=== PATIENT | female | born 1980 | race Caucasian/White ===

== ENCOUNTER 2016-04-05 13:05 | Emergency (ER) | payer MEDICARE, OTHER ==
[2016-04-05] MEDS ORDERED: IPRATROPIUM-ALBUTEROL 3 ML NEB INHALATION STA (13:54)
--- NOTE | 2016-04-05 14:00 | ED ---
SOB HPI - General Chief Complaint: Shortness of Breath Stated Complaint: TISHA Time Seen by Provider: 04/05/16 13:50 Source: patient, family, RN notes reviewed Mode of arrival: wheelchair Limitations: no limitations - History of Present Illness Initial Comments: 36-year-old female presents emergency Department chief complaint of cough congestion shortness breath. Patient states she's been sick since . Patient states she called her practicing md anesthesiologist Dr. Tucker was unable to get her into an appointment until next week so he called in a In[employer] Dosepak, Z-Thanh. Patient states that her nebulizer office is broken so she is only been using her rescue inhaler. Patient states she does have a history of asthma and has been hospital several times. Patient has fever, chills. Patient states she had increased congestion and shortness breath. She states her cough is productive at times. Patient denies any chest pain, nausea vomiting. Patient denies any sick contacts. - Related Data Home Medications Medication Instructions Recorded Confirmed Albuterol Nebulized [Ventolin 2.5 mg INHALATION RT-Q6H PRN 08/06/13 04/05/16 Nebulized] Albuterol Sulfate [Ventolin HFA] 2 puff INHALATION RT-Q4H PRN 08/06/13 04/05/16 Budesonide/Formoterol Fumarate 2 puff INHALATION RT-BID 08/06/13 04/05/16 [Symbicort 160-4.5 Mcg Inhaler] Citalopram Hydrobromide [CeleXA] 40 mg PO DAILY 08/06/13 04/05/16 INSULIN LISPRO (humaLOG) [humaLOG] 100 units SQ AC-TID 08/06/13 04/05/16 Lisinopril-Hctz 20-12.5 mg 1 tab PO DAILY 08/06/13 04/05/16 [Zestoretic 20-12.5] Omalizumab [Xolair] 300 mg SQ Q28D 08/06/13 04/05/16 metFORMIN HCL 1,000 mg PO BID 08/06/13 04/05/16 LORazepam [Ativan] 0.5 mg PO BID 12/10/13 04/05/16 traZODone HCL [Desyrel] 100 mg PO HS 12/10/13 04/05/16 Atorvastatin [Lipitor] 40 mg PO HS 03/09/16 04/05/16 Verapamil HCl [Verapamil ER] 240 mg PO DAILY 03/09/16 04/05/16 risperiDONE [RisperDAL] 1 mg PO HS 04/05/16 04/05/16 risperiDONE [RisperDAL] 2 mg PO AC-BID 04/05/16 04/05/16 Allergies Allergy/AdvReac Type Severity Reaction Status Date / Time Penicillins Allergy Rash/Hives Verified 04/05/16 13:58 Review of Systems ROS Statement: Those systems with pertinent positive or pertinent negative responses have been documented in the HPI. ROS Other: All systems not noted in ROS Statement are negative. Past Medical History Past Medical History: Asthma, Diabetes Mellitus, Hyperlipidemia, Hypertension Additional Past Medical History / Comment(s): dX SLEEP APNEA-June 2015-CPAP History of Any Multi-Drug Resistant Organisms: None Reported Past Surgical History: Appendectomy, Section Additional Past Surgical History / Comment(s): bronchioplasty, moles removed Past Anesthesia/Blood Transfusion Reactions: No Reported Reaction Past Psychological History: Anxiety, Depression Smoking Status: Never smoker Past Alcohol Use History: None Reported Past Drug Use History: Unable to Obtain General Exam Limitations: no limitations General appearance: alert, in no apparent distress Head exam: Present: atraumatic, normocephalic, normal inspection Eye exam: Present: normal appearance, PERRL, EOMI. Absent: scleral icterus, conjunctival injection, periorbital swelling ENT exam: Present: normal exam, normal oropharynx, mucous membranes moist, TM's normal bilaterally, normal external ear exam Neck exam: Present: normal inspection, full ROM. Absent: tenderness, meningismus, lymphadenopathy Respiratory exam: Present: wheezes (bilateral). Absent: normal lung sounds bilaterally, respiratory distress, rales, rhonchi, stridor Cardiovascular Exam: Present: normal rhythm, tachycardia, normal heart sounds. Absent: systolic murmur, diastolic murmur, rubs, gallop, clicks Course Vital Signs 04/05/16 04/05/16 04/05/16 13:09 14:00 14:02 Temperature 97.8 F Pulse Rate 117 H 112 H Respiratory 28 H 20 Rate Blood Pressure 142/79 O2 Sat by Pulse 95 Oximetry 04/05/16 14:15 Temperature Pulse Rate 116 H Respiratory Rate Blood Pressure O2 Sat by Pulse Oximetry - Reevaluation(s) Reevaluation #1: 04/05/16 14:46 Patient was reevaluated after DuoNeb treatments. Patient states she feels much improved she states that she has no shortness of breath. She was updated on chest x-ray results which showed no acute abnormality. Medical Decision Making - Medical Decision Making 36-year-old female presented for cough congestion shortness of breath. Patient' s chest x-ray shows no acute abnormality. Patient has upper respiratory infection though she has a history of asthma. Patient is doing better after DuoNeb treatment. Patient will be sent home with mouthpiece for her nebulizer at home and instructed to use her nebulizer rather than her inhaler at home. She has a follow-up appointment with her practicing md anesthesiologist. Return parameters were discussed. Patient recently. Disposition Clinical Impression: URI (upper respiratory infection), Mild asthma exacerbation Disposition: HOME SELF-CARE Condition: Stable Instructions: Asthma (ED) Additional Instructions: Please return to the Emergency Department if symptoms worsen or any other concerns. Time of Disposition: 14:47
--- NOTE | 2016-04-05 14:36 | XR ---
EXAMINATION TYPE: XR chest 2V DATE OF EXAM: 04/05/2016 2:32 PM COMPARISON: 10/08/2014 HISTORY: Cough TECHNIQUE: Frontal and lateral views of the chest are obtained. FINDINGS: There is no focal air space opacity, pleural effusion, or pneumothorax seen. The cardiac silhouette size is within normal limits. The osseous structures are intact. IMPRESSION: No acute cardiopulmonary process.
[2016-04-05 15:03] VITALS: BP 151/66; PULSE 126; RESP 18; TEMP 98.6
== END 2016-04-05 15:19 | disposition home or self-care (01) ==
LOC: EC 13:05
DX: J06.9 Acute upper respiratory infection, unspecified (principal); E11.9 Type 2 diabetes mellitus without complications; E78.5 Hyperlipidemia, unspecified; J45.901 Unspecified asthma with (acute) exacerbation; I10 Essential (primary) hypertension; F41.9 Anxiety disorder, unspecified; F32.9 Major depressive disorder, single episode, unspecified; Z79.899 Other long term (current) drug therapy; Z79.51 Long term (current) use of inhaled steroids; Z79.4 Long term (current) use of insulin; Z79.84 Long term (current) use of oral hypoglycemic drugs; Z88.0 Allergy status to penicillin
CPT/HCPCS: 71020; 94640; 99285

== ENCOUNTER → 2017-01-13 | Outpatient (CLI) | payer MEDICARE ==
--- NOTE | 2017-01-13 17:05 | PN ---
PROGRESS NOTE DATE OF SERVICE: 01/13/2017 36-year-old lady has been followed in [facility] for treatment of obstructive sleep apnea-hypopnea syndrome. Patient continued successfully to use her machine every night for the whole night. Feels better. Sleep is better and feels well during the day. [place] Sleepiness Scale is only 1. MEDICATIONS ARE: Citalopram, lisinopril, hydrochlorothiazide, metformin, risperidone, Lipitor, , Symbicort, Ventolin, NovoLog, albuterol, lorazepam, ammonium lactate lotion. PHYSICAL EXAM: Patient in no distress. VITAL SIGNS: BP 134/68, HR 78, RR 16, height 5 feet 4 inches, weight 232, BMI 39.8. Patient lost about 21 pounds since previous visit, temperature 98.7, oxygen saturation room air 94%. Oropharynx low position of soft palate. Neck Supple, no JVD. Thyroid is not palpable. LUNGS Clear to percussion and to auscultation. Good air exchange. No wheezing or rhonchi. HEART S1, S2 regular. No murmurs, gallops, or rubs. ABDOMEN: Slightly obese. Soft and nontender. Bowel sounds are present. No organomegaly appreciated. EXTREMITIES No clubbing or cyanosis. 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 Cranial nerves 2 to 7 intact. There is no fasciculation or atrophy. noted. No focal deficits observed. IMPRESSION: 1. Obstructive sleep apnea-hypopnea syndrome. The patient demonstrated good compliance with treatment benefitting from treatment. CPAP pressure is 11 cm of water. 2. Mild obesity, patient lost about 20 pounds of weight since previous visit. 3. Diabetes mellitus. 4. Anxiety. 5. Asthma. 6. Hypertension. PLAN: 1. Continue treatment with CPAP every night for the whole night. 2. Continue losing weight. 3. Sleep hygiene with regular time in bed for at least 8 hours. 4. No driving if feeling sleepiness. 5. Prescription for all necessary CPAP supplies including a full-face mask, tube, filters. Thank you very much for allowing me to participate in management of your patient. Sincerely, Jose Guadalupe Bucio MD, PhD, FAASM Diplomat of [place] [employer] [place] [employer]house Technician [facility] MMODL / IJN: [id number] /
== END ==
LOC: SLEEP 15:27
PROVIDERS: ATTEND Internal Medicine
DX: G47.33 Obstructive sleep apnea (adult) (pediatric) (principal); E66.9 Obesity, unspecified; E11.9 Type 2 diabetes mellitus without complications; F41.9 Anxiety disorder, unspecified; I10 Essential (primary) hypertension; J45.909 Unspecified asthma, uncomplicated

== ENCOUNTER → 2017-02-01 | Outpatient (CLI) | payer MEDICARE ==
--- NOTE | 2017-02-01 09:55 | WWHP ---
[facility] - HISTORY AND PHYSICAL CHIEF COMPLAINT: The patient is here for her routine gynecologic exam. HPI: This is a 36-year-old, G1, P1, with an LMP of 01/19/17, who is here for her routine exam and is without gynecologic complaints. She has decided to not attempt and has been using condoms and spermicide for control. She is declining any other method of control at this time. PAST MEDICAL HISTORY: OCD, anxiety, type 2 diabetes requiring insulin, depression, elevated cholesterol, asthma, and chronic hypertension. MEDICATIONS: 1. Citalopram 40 mg daily. 2. Lisinopril with hydrochlorothiazide 20/12.5 mg daily. 3. Metformin 1000 mg b.i.d. 4. Risperidone 2 mg 2-1/2 tablets daily. 5. Lipitor 40 mg daily. 6. Calan SR 240 mg daily. 7. Symbicort 160/4.5 b.i.d. 8. Xolair injections 300 mg every 4 weeks. 9. Ventolin HFA p.r.n. 10.NovoLog 15 units b.i.d. with meals. 11.Albuterol inhaler every 6 hours p.r.n. 12.Lorazepam 0.5 mg b.i.d. 13.Ammonium LAC 12% lotion b.i.d. ALLERGIES: Penicillin which caused a rash. PAST SURGICAL HISTORY: section 2002, appendectomy, multiple bronchoscopies in the past. 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 SOCIAL HISTORY: She denies tobacco, alcohol, or drug use. 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 FAMILY HISTORY: Grandmother had breast cancer, bone cancer, and skin cancer. REVIEW OF SYSTEMS: She has lost about 8 pounds over the last year with diet changes. She denies respiratory, cardiac or GI problems. PHYSICAL EXAM: Blood pressure 119/70, height 5 feet 5 inches, weight 232 pounds, BMI 39, temperature 98.5, pulse 84. This is a well-developed, heavyset white female, who is alert and oriented x3, in no acute distress. HEENT: Within normal limits. NECK: Supple without mass or thyromegaly. CHEST AND LUNGS: Clear to auscultation. HEART: Regular rate and rhythm. BREASTS: Without mass or discharge. Axillary exam is negative for adenopathy. BACK: Negative for CVA tenderness. ABDOMEN: Obese, soft, nontender, without palpable masses. PELVIC: Normal external genitalia. Cervix and vagina appear normal. There is no evidence of prolapse. The uterus is mid position, nongravid size and nontender. There are no palpable adnexal masses or tenderness. Bimanual examination is somewhat limited secondary to her size. RECTAL: Exam is negative for mass or tenderness. EXTREMITIES: Nontender. IMPRESSION: 1. A 36-year-old female with normal gynecologic exam, using condoms and spermicide for control. 2. Multiple medical problems. 3. Obesity. PLAN: 1. Pap smear was deferred since she had a normal one last year. 2. Self breast examination was discussed. 3. We have discussed control options. She is declining any other options at this time and will continue to use condoms with spermicide. We have also discussed the options of permanent sterilization including vasectomy and tubal sterilization. 4. She will return in 1 year. MMODL / IJN: [id number] /
== END ==
LOC: WWCWWP 07:33
PROVIDERS: ATTEND Obstetrics & Gynecology
DX: Z01.419 Encounter for gynecological examination (general) (routine) without abnormal findings (principal)

== ENCOUNTER → 2018-03-07 | Outpatient (CLI) | payer MEDICARE, OTHER ==
[2018-03-07 16:09] VITALS: BP 136/78; PULSE 120; TEMP 98.3; BMI 42.9
--- NOTE | 2018-03-07 16:50 | P.HPOB ---
History of Present Illness H&P Date: 03/07/18 Chief Complaint: The patient is here for routine gynecologic exam. This is a 38-year-old with an LMP of 02/16/2018. The patient is without gynecologic complaints. She has used condoms and spermicide for control. She would now like to proceed with permanent sterilization and is requesting a referral for a tubal sterilization procedure. Review of Systems The patient has gained 26 pounds over the last year. She denies respiratory, cardiac, or G.I. problems. Past Medical History Past Medical History: Asthma, Diabetes Mellitus (Type II diabetes requiring insulin), Hyperlipidemia, Hypertension Additional Past Medical History / Comment(s): dX SLEEP APNEA-June 2015-CPAP. 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 History of Any Multi-Drug Resistant Organisms: None Reported Past Surgical History: Appendectomy, Section (2002) Additional Past Surgical History / Comment(s): bronchioplasty, moles removed. Past Anesthesia/Blood Transfusion Reactions: No Reported Reaction Past Psychological History: Anxiety, Depression Additional Psychological History / Comment(s): OCD. 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 - Past Family History Mother Family Medical History: No Reported History, Cancer (Grandmother had breasts, bone and skin cancer.) Medications and Allergies Home Medications Medication Instructions Recorded Confirmed Type Albuterol Nebulized [Ventolin 2.5 mg INHALATION RT-Q6H PRN 08/06/13 03/07/18 History Nebulized] Albuterol Sulfate [Ventolin HFA] 2 puff INHALATION RT-Q4H PRN 08/06/13 03/07/18 History Budesonide/Formoterol Fumarate 2 puff INHALATION RT-BID 08/06/13 03/07/18 History [Symbicort 160-4.5 Mcg Inhaler] Citalopram Hydrobromide [CeleXA] 40 mg PO DAILY 08/06/13 03/07/18 History Lisinopril-Hctz 20-12.5 mg 1 tab PO DAILY 08/06/13 03/07/18 History [Zestoretic 20-12.5] Omalizumab [Xolair] 300 mg SQ Q28D 08/06/13 03/07/18 History metFORMIN HCL 1,000 mg PO BID 08/06/13 03/07/18 History LORazepam [Ativan] 0.5 mg PO BID 12/10/13 03/07/18 History Atorvastatin [Lipitor] 40 mg PO HS 03/09/16 03/07/18 History Verapamil HCl [Verapamil ER] 240 mg PO DAILY 03/09/16 03/07/18 History risperiDONE [RisperDAL] 1 mg PO HS 04/05/16 03/07/18 History risperiDONE [RisperDAL] 2 mg PO AC-BID 04/05/16 03/07/18 History Insulin Aspart [NovoLOG] 5 units INJ DAILY 06/24/16 03/07/18 History Allergies Allergy/AdvReac Type Severity Reaction Status Date / Time Penicillins Allergy Rash/Hives Verified 03/07/18 16:09 Exam Vital Signs Temp Pulse BP 03/07/18 16:01 98.3 F 120 H 136/78 Intake and Output 03/07/18 03/07/18 03/07/18 06:59 14:59 22:59 Other: Weight 117.027 kg Height 5'5", weight 258 pounds, BMI 42.9. This is a well-developed well-nourished obese white female who is alert and oriented times 3 in no acute distress. HEENT: Within normal limits. NECK: Supple without mass or thyromegaly. CHEST AND LUNGS: Clear to auscultation. HEART: Regular rate and rhythm. BREASTS: Are without mass or discharge. There is central nipple inversion bilaterally that the patient states she has had for many years. AXILLARY EXAM: Negative for adenopathy. BACK: Negative for CVA tenderness. ABDOMEN: Soft, obese, nontender, without palpable masses. PELVIC EXAM: Normal external genitalia. Cervix and vagina appear normal. There is no unusual discharge. There is no evidence of prolapse. The uterus is midposition, nongravid size and nontender. There are no palpable adnexal masses or tenderness. Bimanual examination is somewhat limited secondary to her size. RECTAL EXAM: negative for mass or tenderness and is negative for occult blood. EXTREMITIES: Nontender. IMPRESSION: 1. 38-year-old obese female with normal gynecologic exam who is requesting permanent tubal sterilization. 2. Multiple medical problems. PLAN: 1. Pap smear was performed. 2. Self breast awareness was discussed with the patient. 3. We had a long discussion regarding various methods for control including tubal sterilization, vasectomy for her as well as the IUD. The patient would like to proceed with tubal sterilization. The ACOG FAQ handouts on male and female sterilization as well as sterilization by laparoscopy were given to the patient. 4. The patient will be referred for tubal sterilization. 5. She will return in one year.
== END ==
LOC: WWCWWP 15:51
PROVIDERS: ATTEND Obstetrics & Gynecology
DX: Z53.9 Procedure and treatment not carried out, unspecified reason (principal)

== ENCOUNTER 2018-04-27 17:16 | Inpatient (IN) | payer MEDICARE ==
[2018-04-27] MEDS ORDERED: SODIUM CHLORIDE 0.9% 1,000 ML IV STA (17:45)
[2018-04-27] MEDS ORDERED: IPRATROPIUM-ALBUTEROL 3 ML NEB INHALATION STA ×2 (17:45→20:48)
[2018-04-27] MEDS ORDERED: methylPREDNISolone SOD SUCCI 125 MG/2 ML VIAL IV STA (17:45)
--- NOTE | 2018-04-27 17:55 | ED ---
SOB HPI - General Chief Complaint: Shortness of Breath Stated Complaint: asthma Time Seen by Provider: 04/27/18 17:40 Source: patient, RN notes reviewed Mode of arrival: ambulatory Limitations: no limitations - History of Present Illness Initial Comments: This is a 38-year-old female history of asthma states she's been having shortness ofs day or so with exertional dyspnea chills wheezing hot and cold flashes. She had 1 episode nausea vomiting. She states she has a lot of rhinorrhea. She states she's not getting better with home medications. She denies smoking. She has no chest pain or other symptoms report. MD Complaint: shortness of breath - Related Data Home Medications Medication Instructions Recorded Confirmed Albuterol Nebulized [Ventolin 2.5 mg INHALATION RT-QID PRN 08/06/13 04/27/18 Nebulized] Albuterol Sulfate [Ventolin HFA] 2 puff INHALATION RT-Q4H PRN 08/06/13 04/27/18 Budesonide/Formoterol Fumarate 2 puff INHALATION RT-BID 08/06/13 04/27/18 [Symbicort 160-4.5 Mcg Inhaler] Citalopram Hydrobromide [CeleXA] 40 mg PO DAILY 08/06/13 04/27/18 Lisinopril-Hctz 20-12.5 mg 1 tab PO DAILY 08/06/13 04/27/18 [Zestoretic 20-12.5] Omalizumab [Xolair] 300 mg SQ Q28D 08/06/13 04/27/18 metFORMIN HCL 1,000 mg PO BID 08/06/13 04/27/18 LORazepam [Ativan] 0.5 mg PO BID 12/10/13 04/27/18 Atorvastatin [Lipitor] 40 mg PO HS 03/09/16 04/27/18 Verapamil HCl [Verapamil ER] 240 mg PO DAILY 03/09/16 04/27/18 risperiDONE [RisperDAL] 2 mg PO AC-BID 04/05/16 04/27/18 Insulin Aspart [NovoLOG] 30 units SQ AC-TID 06/24/16 04/27/18 Ammonium Lactate Lotion 1 applic TOPICAL BID 04/27/18 04/27/18 [Lac-Hydrin 12% Lotion] Insulin Glargine,Hum.rec.anlog 40 unit SQ HS 04/27/18 04/27/18 [Lantus Solostar] Allergies Allergy/AdvReac Type Severity Reaction Status Date / Time Penicillins Allergy Rash/Hives Verified 04/27/18 17:30 Review of Systems ROS Statement: Those systems with pertinent positive or pertinent negative responses have been documented in the HPI. ROS Other: All systems not noted in ROS Statement are negative. Past Medical History Past Medical History: Asthma Additional Past Medical History / Comment(s): dX SLEEP APNEA-June 2015-CPAP History of Any Multi-Drug Resistant Organisms: None Reported Past Surgical History: Appendectomy, Section (2002) Additional Past Surgical History / Comment(s): bronchioplasty, moles removed Past Anesthesia/Blood Transfusion Reactions: No Reported Reaction Past Psychological History: Anxiety, Depression Smoking Status: Never smoker Past Alcohol Use History: Occasional Past Drug Use History: None Reported - Past Family History Mother Family Medical History: No Reported History, Cancer (Grandmother had breasts, bone and skin cancer.) General Exam - General Exam Comments Initial Comments: Is a well developed obese female who is awake alert oriented 3 Limitations: no limitations General appearance: alert, anxious, in distress Head exam: Present: atraumatic, normocephalic, normal inspection Eye exam: Present: normal appearance, PERRL, EOMI. Absent: scleral icterus, conjunctival injection, periorbital swelling ENT exam: Present: mucous membranes moist, other (Nasal mucosa with clear drainage) Neck exam: Present: normal inspection. Absent: tenderness, meningismus, lymphadenopathy Respiratory exam: Present: accessory muscle use, decreased breath sounds. Absent: respiratory distress, wheezes, rales, rhonchi, stridor Cardiovascular Exam: Present: normal rhythm, tachycardia, normal heart sounds. Absent: systolic murmur, diastolic murmur, rubs, gallop, clicks GI/Abdominal exam: Present: soft, normal bowel sounds. Absent: distended, tenderness, guarding, rebound, rigid Extremities exam: Present: normal inspection, full ROM, normal capillary refill. Absent: tenderness, pedal edema, joint swelling, calf tenderness Back exam: Present: normal inspection Neurological exam: Present: alert, oriented X3, CN II-XII intact Psychiatric exam: Present: normal affect, normal mood Skin exam: Present: warm, dry, intact, normal color. Absent: rash Course Vital Signs 04/27/18 04/27/18 04/27/18 17:19 18:05 18:14 Temperature 99.7 F H Pulse Rate 130 H 125 H 128 H Respiratory 24 20 Rate Blood Pressure 170/67 O2 Sat by Pulse 94 L Oximetry 04/27/18 20:27 Temperature 101.5 F H Pulse Rate 125 H Respiratory 20 Rate Blood Pressure O2 Sat by Pulse 91 L Oximetry - Reevaluation(s) Reevaluation #1: 04/27/18 20:49 I did evaluate the patient again after the initial treatment she did not get much improvement he remained tachycardic. Reevaluation #2: 04/27/18 20:49 Repeat evaluation patient did desaturate on room air with minimal exertion. Medical Decision Making - Medical Decision Making I did discuss the findings the patient and her family. As well as Dr. Law. Patient be admitted for inpatient treatment and also consultation by Dr. Tucker - Lab Data Result diagrams: 04/27/18 17:50 04/27/18 17:50 Lab Results 04/27/18 04/27/18 04/27/18 Range/Units 17:50 17:50 17:50 WBC 6.4 (3.8-10.6) k/uL RBC 4.36 (3.80-5.40) m/uL Hgb 12.1 (11.4-16.0) gm/dL Hct 36.1 (34.0-46.0) % MCV 82.9 (80.0-100.0) fL MCH 27.8 (25.0-35.0) pg MCHC 33.6 (31.0-37.0) g/dL RDW 14.4 (11.5-15.5) % Plt Count 292 (150-450) k/uL Neutrophils % 79 % Lymphocytes % 11 % Monocytes % 6 % Eosinophils % 1 % Basophils % 1 % Neutrophils # 5.1 (1.3-7.7) k/uL Lymphocytes # 0.7 L (1.0-4.8) k/uL Monocytes # 0.4 (0-1.0) k/uL Eosinophils # 0.1 (0-0.7) k/uL Basophils # 0.0 (0-0.2) k/uL PT (9.0-12.0) sec INR (<1.2) APTT (22.0-30.0) sec Sodium 136 L (137-145) mmol/L Potassium 4.3 (3.5-5.1) mmol/L Chloride 101 (98-107) mmol/L Carbon Dioxide 22 (22-30) mmol/L Anion Gap 13 mmol/L BUN 13 (7-17) mg/dL Creatinine 0.53 (0.52-1.04) mg/dL Est GFR (CKD-EPI)AfAm >90 (>60 ml/min/1.73 sqM) Est GFR (CKD-EPI)NonAf >90 (>60 ml/min/1.73 sqM) Glucose 168 H (74-99) mg/dL Calcium 9.7 (8.4-10.2) mg/dL Magnesium 1.4 L (1.6-2.3) mg/dL Total Bilirubin 0.3 (0.2-1.3) mg/dL AST 19 (14-36) U/L ALT 31 (9-52) U/L Alkaline Phosphatase 57 (38-126) U/L Total Creatine Kinase 64 (30-135) U/L CK-MB (CK-2) 0.6 (0.0-2.4) ng/mL CK-MB (CK-2) Rel Index 0.9 Troponin I <0.012 (0.000-0.034) ng/mL NT-Pro-B Natriuret Pep pg/mL Total Protein 7.5 (6.3-8.2) g/dL Albumin 4.4 (3.5-5.0) g/dL Influenza Type A RNA (Not Detectd) Influenza Type B (PCR) (Not Detectd) 04/27/18 04/27/18 04/27/18 Range/Units 17:50 17:50 18:00 WBC (3.8-10.6) k/uL RBC (3.80-5.40) m/uL Hgb (11.4-16.0) gm/dL Hct (34.0-46.0) % MCV (80.0-100.0) fL MCH (25.0-35.0) pg MCHC (31.0-37.0) g/dL RDW (11.5-15.5) % Plt Count (150-450) k/uL Neutrophils % % Lymphocytes % % Monocytes % % Eosinophils % % Basophils % % Neutrophils # (1.3-7.7) k/uL Lymphocytes # (1.0-4.8) k/uL Monocytes # (0-1.0) k/uL Eosinophils # (0-0.7) k/uL Basophils # (0-0.2) k/uL PT 9.8 (9.0-12.0) sec INR 0.9 (<1.2) APTT 22.9 (22.0-30.0) sec Sodium (137-145) mmol/L Potassium (3.5-5.1) mmol/L Chloride (98-107) mmol/L Carbon Dioxide (22-30) mmol/L Anion Gap mmol/L BUN (7-17) mg/dL Creatinine (0.52-1.04) mg/dL Est GFR (CKD-EPI)AfAm (>60 ml/min/1.73 sqM) Est GFR (CKD-EPI)NonAf (>60 ml/min/1.73 sqM) Glucose (74-99) mg/dL Calcium (8.4-10.2) mg/dL Magnesium (1.6-2.3) mg/dL Total Bilirubin (0.2-1.3) mg/dL AST (14-36) U/L ALT (9-52) U/L Alkaline Phosphatase (38-126) U/L Total Creatine Kinase (30-135) U/L CK-MB (CK-2) (0.0-2.4) ng/mL CK-MB (CK-2) Rel Index Troponin I (0.000-0.034) ng/mL NT-Pro-B Natriuret Pep 44 pg/mL Total Protein (6.3-8.2) g/dL Albumin (3.5-5.0) g/dL Influenza Type A RNA Detected H (Not Detectd) Influenza Type B (PCR) Not Detected (Not Detectd) - EKG Data -: EKG Interpreted by Oh EKG shows normal: sinus rhythm (Sinus tachycardia 124 [place] interval 112 QRS duration 80 QT since QTC 318/[address] configuration) - Radiology Data Radiology results: report reviewed (No definite acute findings), image reviewed Critical Care Time Critical Care Time: Yes Critical Care Time: 39 minutes of critical care time which includes initial presentation with history physical labs x-rays multiple reevaluation the patient responsive therapy and main orders discussed with the admitting physician Dr. Law documentation of the above Disposition Clinical Impression: Adult respiratory distress syndrome, Acute asthma exacerbation, Influenza A, Hypoxemia Disposition: ADMITTED IP TO THIS HOSP Condition: Serious Referrals: Dima Law MD [Primary Care Provider] - 1-2 days
--- NOTE | 2018-04-27 18:48 | XR ---
EXAMINATION TYPE: XR chest 2V DATE OF EXAM: 04/27/2018 COMPARISON: 04/05/2016 HISTORY: Short of breath TECHNIQUE: Frontal and lateral views of the chest are obtained. FINDINGS: There is no heart failure. There is some linear density in the lower lung peterson. Heart is enlarged. There is coarsening of the interstitial markings. There is no pleural effusion. IMPRESSION: There is some new atelectasis in the lower lung peterson compared to old exam. No heart fa ilure. There is probably cardiomegaly.
[2018-04-27 18:52] LABS: Basophils % (A) 1 %; Eosinophils # (A) 0.1 k/uL (0-0.7); Eosinophils % (A) 1 %; HCT 36.1 % (34.0-46.0); HGB 12.1 gm/dL (11.4-16.0); Lymphocytes # (A) 0.7 k/uL (1.0-4.8); Lymphocytes % (A) 11 %; MCH 27.8 pg (25.0-35.0); MCHC 33.6 g/dL (31.0-37.0); MCV 82.9 fL (80.0-100.0); Mean Platelet Volume 6.1; Monocytes # (A) 0.4 k/uL (0-1.0); Monocytes % (A) 6 %; Neutrophils # (A) 5.1 k/uL (1.3-7.7); Neutrophils % (A) 79 %; Platelet Count 292 k/uL (150-450); RBC 4.36 m/uL (3.80-5.40); RDW 14.4 % (11.5-15.5); WBC 6.4 k/uL (3.8-10.6)
[2018-04-27 18:55] LABS: INR 0.9 (<1.2); Partial Thromboplastin Time 22.9 sec (22.0-30.0); Prothrombin Time 9.8 sec (9.0-12.0)
[2018-04-27 19:06] LABS: Creatine Kinase 64 U/L (30-135)
[2018-04-27 19:08] LABS: ALT 31 U/L (9-52); AST 19 U/L (14-36); Albumin 4.4 g/dL (3.5-5.0); Alkaline Phosphatase 57 U/L (38-126); Anion Gap 13 mmol/L; Blood Urea Nitrogen 13 mg/dL (7-17); Calcium 9.7 mg/dL (8.4-10.2); Carbon Dioxide 22 mmol/L (22-30); Chloride 101 mmol/L (98-107); Glucose 168 mg/dL (74-99); Magnesium 1.4 mg/dL (1.6-2.3); Potassium 4.3 mmol/L (3.5-5.1); Sodium 136 mmol/L (137-145); Total Bilirubin 0.3 mg/dL (0.2-1.3); Total Protein 7.5 g/dL (6.3-8.2)
[2018-04-27] MEDS ORDERED: SODIUM CHLORIDE 0.9% 500 ML 500 ML IV STA (19:09)
[2018-04-27] MEDS ORDERED: MAGNESIUM SULFATE-D5W PMX 1 GM in DEXTROSE/WATER 1 100ML.BAG IVPB ONE (19:10)
[2018-04-27 19:19] LABS: Creatine Kinase MB 0.6 ng/mL (0.0-2.4); Troponin I <0.012 ng/mL (0.000-0.034)
[2018-04-27] MEDS ORDERED: OSELTAMIVIR 75 MG CAP PO STA (19:21)
[2018-04-27] MEDS ORDERED: ACETAMINOPHEN TAB 325 MG TAB PO STA (20:27)
[2018-04-27 23:39] VITALS: BMI 42.5
[2018-04-28] MEDS: AMMONIUM LACTATE 12% LOTION 225 GM BTL TOPICAL SCH ×3 (00:01→21:47)
[2018-04-28] MEDS: methylPREDNISolone SOD SUCCI 125 MG/2 ML VIAL IV SCH ×5 (00:01→23:30)
[2018-04-28] MEDS: LORazepam 0.5 MG TAB PO SCH ×3 (00:04→21:47)
[2018-04-28] MEDS: INSULIN DETEMIR 100 UNIT/ML 10 ML VIAL SQ SCH ×2 (00:06→21:47)
[2018-04-28 00:08] LABS: Glucose,Whole Blood 368 mg/dL (75-99)
[2018-04-28] MEDS: IPRATROPIUM-ALBUTEROL 3 ML NEB INHALATION SCH ×6 (02:28→20:12)
[2018-04-28 07:31] LABS: Glucose,Whole Blood 309 mg/dL (75-99)
[2018-04-28] MEDS: INSULIN ASPART 100 UNIT/ML 1 ML 10 ML VIAL SQ SCH ×7 (08:22→21:48)
[2018-04-28] MEDS ORDERED: ZOLPIDEM 5 MG TAB PO PRN (08:36)
[2018-04-28] MEDS ORDERED: Magnesium Replacement Protocol 1 EACH MISC MISCELLANE PRN (08:38)
--- NOTE | 2018-04-28 08:40 | P.HPIM ---
History of Present Illness H&P Date: 04/28/18 Chief Complaint: Asthma exacerbation. This is a 38-year-old diabetic white female who is having an asthma flare. She has been very stable recently and I suspect hormonal changes have exacerbated her moderate persistent asthma. No fever or chills stated. Nausea, vomiting or diarrhea. She did not resolve with multiple treatments in the emergency room and is now admitted for appropriate treatment. Pulmonology is now been consulted. Review of Systems Constitutional: Denies chills, Denies fever Eyes: denies blurred vision, denies pain Ears, nose, mouth and throat: Denies headache, Denies sore throat Respiratory: Reports as per HPI, Reports cough, Reports dyspnea Gastrointestinal: Denies abdominal pain, Denies diarrhea, Denies nausea, Denies vomiting Genitourinary: Denies dysuria, Denies hematuria Musculoskeletal: Denies myalgias Past Medical History Past Medical History: Asthma, Diabetes Mellitus, Hyperlipidemia, Hypertension Additional Past Medical History / Comment(s): dX SLEEP APNEA-June 2015-CPAP History of Any Multi-Drug Resistant Organisms: None Reported Past Surgical History: Appendectomy, Section Additional Past Surgical History / Comment(s): bronchioplasty, moles removed Past Anesthesia/Blood Transfusion Reactions: No Reported Reaction Past Psychological History: Anxiety, Depression Additional Psychological History / Comment(s): OCD. Smoking Status: Never smoker Past Alcohol Use History: Occasional Past Drug Use History: None Reported - Past Family History Mother Family Medical History: Cancer Additional Family Medical History / Comment(s): skin cancer Medications and Allergies Home Medications Medication Instructions Recorded Confirmed Type Albuterol Nebulized [Ventolin 2.5 mg INHALATION RT-QID PRN 08/06/13 04/27/18 History Nebulized] Albuterol Sulfate [Ventolin HFA] 2 puff INHALATION RT-Q4H PRN 08/06/13 04/27/18 History Budesonide/Formoterol Fumarate 2 puff INHALATION RT-BID 08/06/13 04/27/18 History [Symbicort 160-4.5 Mcg Inhaler] Citalopram Hydrobromide [CeleXA] 40 mg PO DAILY 08/06/13 04/27/18 History Lisinopril-Hctz 20-12.5 mg 1 tab PO DAILY 08/06/13 04/27/18 History [Zestoretic 20-12.5] Omalizumab [Xolair] 300 mg SQ Q28D 08/06/13 04/27/18 History metFORMIN HCL 1,000 mg PO BID 08/06/13 04/27/18 History LORazepam [Ativan] 0.5 mg PO BID 12/10/13 04/27/18 History Atorvastatin [Lipitor] 40 mg PO HS 03/09/16 04/27/18 History Verapamil HCl [Verapamil ER] 240 mg PO DAILY 03/09/16 04/27/18 History risperiDONE [RisperDAL] 2 mg PO AC-BID 04/05/16 04/27/18 History Insulin Aspart [NovoLOG] 30 units SQ AC-TID 06/24/16 04/27/18 History Ammonium Lactate Lotion 1 applic TOPICAL BID 04/27/18 04/27/18 History [Lac-Hydrin 12% Lotion] Insulin Glargine,Hum.rec.anlog 40 unit SQ HS 04/27/18 04/27/18 History [Lantus Solostar] Allergies Allergy/AdvReac Type Severity Reaction Status Date / Time Penicillins Allergy Rash/Hives Verified 04/27/18 17:30 Physical Exam Vitals: Vital Signs Temp Pulse Pulse Resp BP BP Pulse Ox 04/28/18 07:56 98.8 F 130 H 20 129/71 04/28/18 07:30 110 H 04/28/18 07:18 116 H 04/28/18 03:54 120 H 04/28/18 02:38 120 H 04/28/18 02:28 120 H 04/28/18 00:10 115 H 04/27/18 23:05 98.9 F 124 H 16 145/70 92 L 04/27/18 22:33 99 F 120 H 18 146/86 94 L 04/27/18 21:38 123 H 18 04/27/18 21:28 121 H 20 04/27/18 20:27 101.5 F H 125 H 20 91 L 04/27/18 18:14 128 H 04/27/18 18:05 125 H 20 04/27/18 17:19 99.7 F H 130 H 24 170/67 94 L Intake and Output 04/27/18 04/28/18 04/28/18 22:59 06:59 14:59 Intake Total 800 Balance 800 Intake: Intake, IV Titration 800 Amount Sodium Chloride 0.9% 1, 800 000 ml @ 100 mls/hr IV . Q10H STA Rx#:[id number] Other: # Voids 2 Weight 116.12 kg - Constitutional General appearance: no acute distress - EENT Eyes: EOMI - Neck Neck: no lymphadenopathy - Respiratory Respiratory: bilateral: wheezing - Cardiovascular Rhythm: regular Heart sounds: normal: S1, S2 Abnormal Heart Sounds: no S3 Gallop - Gastrointestinal General gastrointestinal: soft, no tenderness - Neurologic Neurologic: CNII-XII intact - Psychiatric Psychiatric: A&O x's 3, intact judgment & insight Results CBC & Chem 7: 04/27/18 17:50 04/27/18 17:50 Labs: Abnormal Lab Results - Last 24 Hours (Table) 04/27/18 04/27/18 04/27/18 Range/Units 17:50 17:50 18:00 Lymphocytes # 0.7 L (1.0-4.8) k/uL Sodium 136 L (137-145) mmol/L Glucose 168 H (74-99) mg/dL POC Glucose (mg/dL) (75-99) mg/dL Magnesium 1.4 L (1.6-2.3) mg/dL Influenza Type A RNA Detected H (Not Detectd) 04/27/18 04/28/18 Range/Units 23:56 07:09 Lymphocytes # (1.0-4.8) k/uL Sodium (137-145) mmol/L Glucose (74-99) mg/dL POC Glucose (mg/dL) 368 H 309 H (75-99) mg/dL Magnesium (1.6-2.3) mg/dL Influenza Type A RNA (Not Detectd) Thrombosis Risk Factor Assmnt - Choose All That Apply Any of the Below Risk Factors Present?: Yes Each Factor Represents 1 point: Obesity (BMI >25) Thrombosis Risk Factor Assessment Total Risk Factor Score: 1 Thrombosis Risk Factor Assessment Level: Low Risk Assessment and Plan (1) Acute asthma exacerbation Current Visit: Yes Status: Acute Code(s): J45.901 - UNSPECIFIED ASTHMA WITH (ACUTE) EXACERBATION SNOMED Code(s): 487130221 (2) Adult respiratory distress syndrome Current Visit: Yes Status: Acute Code(s): J80 - ACUTE RESPIRATORY DISTRESS SYNDROME SNOMED Code(s): 69661442 (3) Hypoxemia Current Visit: Yes Status: Acute Code(s): R09.02 - HYPOXEMIA SNOMED Code(s ): 917090840 (4) Influenza A Current Visit: Yes Status: Acute Code(s): J10.1 - FLU DUE TO OTH IDENT INFLUENZA VIRUS W OTH RESP MANIFEST SNOMED Code(s): 130354082 Plan: Continue supportive care. Reconcile medications. Influenza treatment as necessary. Appreciate pulmonology input. See orders otherwise.
[2018-04-28] MEDS: OSELTAMIVIR 75 MG CAP PO SCH ×2 (09:39→22:26)
[2018-04-28] MEDS: risperiDONE 2 MG TAB PO SCH ×2 (09:39→17:31)
[2018-04-28] MEDS: metFORMIN 500 MG TAB PO SCH ×3 (09:40→21:47)
[2018-04-28] MEDS: CITALOPRAM HYDROBROMIDE 20 MG TAB PO SCH (09:40)
[2018-04-28] MEDS: traMADol 50 MG TAB PO SCH ×4 (09:40→21:49)
[2018-04-28] MEDS: LISINOPRIL-HCTZ 20-12.5 MG 1 EACH TAB PO SCH (09:40)
[2018-04-28] MEDS: VERAPAMIL SR 240 MG TABLET.ER PO SCH (09:41)
[2018-04-28] MEDS ORDERED: IPRATROPIUM-ALBUTEROL 3 ML NEB INHALATION PRN (11:33)
[2018-04-28 12:28] LABS: Glucose,Whole Blood 281 mg/dL (75-99)
[2018-04-28] MEDS: AZITHROMYCIN 500 MG TAB PO SCH (13:29)
--- NOTE | 2018-04-28 14:06 | CONS ---
CONSULTATION PULMONARY CRITICAL CARE CONSULTATION: DATE OF SERVICE: 04/28/2018 A 38-year-old female with a history of shortness of breath. She does have a history of chronic bronchial asthma. I see her for her asthma. Apparently over the last number of days she states that she has been not feeling well. She has had chest tightness, wheezing, cough, shortness of breath, and phlegm production. She apparently called the office and we called in some antibiotics and steroids. Despite the fact that she was using all her usual medications and despite the fact that she started on medications that we called in for her and using her breathing treatment medication on a frequent basis, she did not improve and for that reason, the patient came into the emergency room to be evaluated. It appears that she did test positive for influenza A. She is currently on Tamiflu. Her symptoms include shortness of breath, chest tightness, wheezing, cough, chest congestion. She also apparently had some fever, chills and also had some hot and cold flashes. HOME MEDICATIONS: Include albuterol updrafts, Ventolin inhaler, Symbicort 160/4.5 two puffs twice a day, Celexa, Zestoretic, Xolair, metformin, Ativan, Lipitor, verapamil, Risperdal, NovoLog, insulin, Lac-Hydrin lotion. ALLERGIES: Include primarily PENICILLIN. MEDICAL HISTORY: Positive for chronic bronchial asthma. She also has a history of sleep apnea syndrome for which she uses CPAP. In addition, she has a history of diabetes mellitus, hyperlipidemia, and hypertension. SURGICAL HISTORY: Includes appendectomy, , bronchial femoroplasty and some skin surgeries. She does have a history of anxiety and depression as well. SOCIAL HISTORY: Significant that she is a lifelong nonsmoker. She does drink alcohol occasionally. No illicit drug use. FAMILY HISTORY: Unremarkable. REVIEW OF SYSTEMS: CONSTITUTIONAL: Negative. NEUROLOGIC: Negative. HEENT: Negative. CARDIOVASCULAR: Negative. PULMONARY: Shortness of breath, chest tightness, wheezing, cough, chest congestion and phlegm production. GI/: Negative. RHEUMATOLOGIC/IMMUNOLOGIC: Negative. ENDOCRINOLOGIC: Negative. DERMATOLOGIC: Negative. PHYSICAL EXAMINATION: Current vital signs include a temperature 98.8, heart rate 114, respiratory rate 20, blood pressure 129/71, mean 90 and 4 L saturation of 96%. Appears in no acute distress. No audible wheezing. No use of accessory muscles. No nasal flaring. HEENT examination is grossly unremarkable. Nasal O2 noted. Neck is supple. Full range of motion. No adenopathy or thyromegaly. Neck veins are flat. Cardiovascular examination reveals mild tachycardia. Heart rate about 105. S1, S2 normal. No murmur. Lungs reveal inspiratory and expiratory wheezes and rhonchi. There is prolongation on forced maneuver. The patient wheezes and coughs on forced maneuver. Abdomen is obese. Bowel sounds are heard. Extremities are intact. No cyanosis, clubbing, or edema. Skin without rash. Neurologic examination is brief but nonfocal. CHEST X-RAY: Does not reveal any acute infiltrates. There may be some minimal atelectasis at the left lung base. She does have some evidence of cardiomegaly. MICROBIOLOGIC STUDIES: Microbiological studies are thus far negative. Laboratory palmer, her white count 6.4, hemoglobin 12.1, hematocrit 36.1, and platelet count 292,000. PT, INR, PTT all normal. Electrolytes are completely normal. Liver function normal. Glucose 168. Magnesium 1.4. Influenza A test was positive. Medications will be reviewed. ASSESSMENT: 1. Asthma exacerbation, complicated by and triggered by influenza. 2. Probable purulent tracheobronchitis as a complicating factor as well. 3. Obesity. 4. Hyperlipidemia. 5. Diabetes. 6. Hypertension. 7. History of sleep apnea syndrome. 8. Status post bronchial thermoplastic for her severe chronic bronchial asthma. PLAN: Medications are reviewed. Additional recommendations and suggestions are forthcoming. Prognosis is guarded. Will continue to follow. The patient's medications will be adjusted accordingly. Will continue her on short-acting beta agonist, short-acting muscarinic antagonist, long-acting beta agonist, inhaled corticosteroids, systemic corticosteroids, Tamiflu, and oral antibiotics. Will continue to follow. MMODL / IJN: [id number] /
[2018-04-28 17:26] LABS: Glucose,Whole Blood 313 mg/dL (75-99)
[2018-04-28] MEDS ORDERED: BUDESONIDE 0.5 MG/2 ML NEBU INHALATION SCH (20:00)
[2018-04-28] MEDS: BUDESONIDE 1 MG/2 ML NEBU INHALATION SCH (20:12)
[2018-04-28] MEDS: FORMOTEROL FUMARATE 20 MCG/2 ML NEBU INHALATION SCH (20:12)
[2018-04-28 20:48] LABS: Glucose,Whole Blood 319 mg/dL (75-99)
[2018-04-28] MEDS: ATORVASTATIN 40 MG TAB PO SCH ×2 (21:47)
[2018-04-29] MEDS: IPRATROPIUM-ALBUTEROL 3 ML NEB INHALATION SCH ×6 (00:48→19:07)
[2018-04-29] MEDS: methylPREDNISolone SOD SUCCI 125 MG/2 ML VIAL IV SCH ×3 (05:42→17:16)
[2018-04-29 07:05] LABS: Glucose,Whole Blood 334 mg/dL (75-99)
[2018-04-29] MEDS: BUDESONIDE 1 MG/2 ML NEBU INHALATION SCH ×2 (08:29→19:07)
[2018-04-29] MEDS: FORMOTEROL FUMARATE 20 MCG/2 ML NEBU INHALATION SCH ×2 (08:30→19:07)
[2018-04-29] MEDS: CITALOPRAM HYDROBROMIDE 20 MG TAB PO SCH (08:43)
[2018-04-29] MEDS: VERAPAMIL SR 240 MG TABLET.ER PO SCH (08:44)
[2018-04-29] MEDS: OSELTAMIVIR 75 MG CAP PO SCH ×2 (08:44→21:31)
[2018-04-29] MEDS: AZITHROMYCIN 500 MG TAB PO SCH (08:44)
[2018-04-29] MEDS: LISINOPRIL-HCTZ 20-12.5 MG 1 EACH TAB PO SCH (08:44)
[2018-04-29] MEDS: risperiDONE 2 MG TAB PO SCH ×2 (08:44→17:17)
[2018-04-29] MEDS: LORazepam 0.5 MG TAB PO SCH ×2 (08:44→21:31)
[2018-04-29] MEDS: metFORMIN 500 MG TAB PO SCH ×2 (08:44→21:31)
[2018-04-29] MEDS: INSULIN ASPART 100 UNIT/ML 1 ML 10 ML VIAL SQ SCH ×7 (08:45→21:34)
[2018-04-29] MEDS: AMMONIUM LACTATE 12% LOTION 225 GM BTL TOPICAL SCH ×2 (08:50→21:34)
[2018-04-29] MEDS: traMADol 50 MG TAB PO SCH ×4 (08:50→21:34)
[2018-04-29 09:59] LABS: HCT 36.4 % (34.0-46.0); HGB 11.2 gm/dL (11.4-16.0); MCH 26.8 pg (25.0-35.0); MCHC 30.9 g/dL (31.0-37.0); MCV 86.7 fL (80.0-100.0); Mean Platelet Volume 6.9; Platelet Count 348 k/uL (150-450); RDW 14.5 % (11.5-15.5); WBC 12.5 k/uL (3.8-10.6)
[2018-04-29 10:12] LABS: ALT 26 U/L (9-52); AST 21 U/L (14-36); Albumin 4.3 g/dL (3.5-5.0); Alkaline Phosphatase 56 U/L (38-126); Anion Gap 14 mmol/L; Blood Urea Nitrogen 16 mg/dL (7-17); Calcium 9.5 mg/dL (8.4-10.2); Carbon Dioxide 22 mmol/L (22-30); Chloride 102 mmol/L (98-107); Glucose 427 mg/dL (74-99); Magnesium 1.8 mg/dL (1.6-2.3); Potassium 4.5 mmol/L (3.5-5.1); Sodium 138 mmol/L (137-145); Total Bilirubin 0.3 mg/dL (0.2-1.3); Total Protein 7.2 g/dL (6.3-8.2)
[2018-04-29 11:05] LABS: Glucose,Whole Blood 349 mg/dL (75-99)
--- NOTE | 2018-04-29 15:05 | P.PN ---
Subjective 71-year-old admitted with for asthma exacerbation patient is still on 2 L of oxygen patient wheezing significantly improved patient is bit tachycardic. Patient will be continued on systemic steroids today. Possibly of discharge tomorrow Constitutional: Denied any fatigue denied any fever. Cardio vascular: denied any chest pain, palpitations Gastrointestinal denied any nausea vomiting Pulmonary: improved shortness of breath Neurologic denied any new focal deficits All inpatient medications were reviewed and appropriate changes in these medications as dictated in the interval history and assessment and plan. Objective - Vital Signs Vital signs: Vital Signs Temp 98.5 F 04/29/18 14:18 Pulse 116 H 04/29/18 14:18 Resp 15 04/29/18 14:18 BP 128/68 04/29/18 14:18 Pulse Ox 93 L 04/29/18 14:18 Intake & Output 04/28/18 04/29/18 04/29/18 18:59 06:59 18:59 Intake Total 800 260 Balance 800 260 Intake: Intake, IV Titration 800 Amount Sodium Chloride 0.9% 1, 800 000 ml @ 100 mls/hr IV . Q10H STA Rx#:[id number] Oral 260 Other: # Voids 2 1 1 - Exam PHYSICAL EXAMINATION: GENERAL: The patient is alert and oriented x3, not in any acute distress. Obese HEENT: Pupils are round and equally reacting to light. EOMI. No scleral icterus. No conjunctival pallor. Normocephalic, atraumatic. No pharyngeal erythema. No thyromegaly. CARDIOVASCULAR: S1 and S2 present. No murmurs, rubs, or gallops. His tachycardia PULMONARY: Good air entry into bilateral lung peterson minimal expiratory wheezing ABDOMEN: Soft, nontender, nondistended, normoactive bowel sounds. No palpable organomegaly. MUSCULOSKELETAL: No joint swelling or deformity. EXTREMITIES: No cyanosis, clubbing, or pedal edema. NEUROLOGICAL: Gross neurological examination did not reveal any focal deficits. SKIN: No rashes. - Labs CBC & Chem 7: 04/29/18 09:04 04/29/18 09:04 Labs: Abnormal Lab Results - Last 24 Hours (Table) 04/28/18 04/28/18 04/29/18 Range/Units 17:14 20:37 06:54 WBC (3.8-10.6) k/uL Hgb (11.4-16.0) gm/dL MCHC (31.0-37.0) g/dL Creatinine (0.52-1.04) mg/dL Glucose (74-99) mg/dL POC Glucose (mg/dL) 313 H 319 H 334 H (75-99) mg/dL 04/29/18 04/29/18 04/29/18 Range/Units 09:04 09:04 10:54 WBC 12.5 H (3.8-10.6) k/uL Hgb 11.2 L (11.4-16.0) gm/dL MCHC 30.9 L (31.0-37.0) g/dL Creatinine 0.50 L (0.52-1.04) mg/dL Glucose 427 H (74-99) mg/dL POC Glucose (mg/dL) 349 H (75-99) mg/dL Assessment and Plan Plan: 1 acute asthma exacerbation triggered with influenza: Patient will continued on systemic steroids inhalational treatments area at patient appears to have chronic severe persistent bronchial asthma -Tracheobronchitis possibility of secondary bacterial because of which patient is on azithromycin -Hyperlipidemia Hypertension Diabetes mellitus -Hypertension -Sleep apnea
[2018-04-29] MEDS ORDERED: ACETAMINOPHEN TAB 325 MG TAB PO STA (15:18)
--- NOTE | 2018-04-29 15:28 | PN ---
PROGRESS NOTE DATE OF SERVICE: 04/29/2018 38-year-old female with history of chronic bronchial asthma. She came with asthma exacerbation. She was also found to be positive for influenza A. She is feeling a bit better today. She came in primarily with shortness of breath, chest tightness, wheezing cough and some phlegm production. Most of the cough was nonproductive though. She also had some fever and chills and also had some hot and cold flashes. Please see my consultation from yesterday. Today, she initially was sleeping. She was arousable. PHYSICAL EXAMINATION: Vital signs are reviewed. Temperature 98, heart rate 98, respiratory rate 18, blood pressure 120/75, mean 90, 4 L saturation 93%. Appears in no acute distress. HEENT examination is grossly unremarkable. Mucous membranes are moist. No oral lesions. NECK: Supple. Full range of motion. No adenopathy or thyromegaly. Neck veins are flat. Cardiovascular examination reveals regular rhythm rate. Heart rate 98. S1, S2 normal. No S3, S4, or murmur. Lungs reveal diffuse inspiratory and expiratory wheezes and rhonchi. There is prolongation on forced maneuver. There is expiratory wheezes. Her adventitious lung sounds are more prominent on forced maneuver. Breath sounds equal bilaterally. ABDOMEN: Soft. Bowel sounds are heard. Extremities are intact. No cyanosis, clubbing, or edema. Skin without rash. Neurologic examination is brief but nonfocal. LABS: Reviewed. White count 12.5, hemoglobin 11.2, hematocrit 36.4, platelet count 348,000. Sodium, potassium, chloride and CO2 all normal. Anion gap 14. BUN and creatinine were 16 and 0.5. Influenza type A was positive. Medications were adjusted yesterday. She is on all the appropriate medications. ASSESSMENT: 1. Asthma exacerbation, complicated by and triggered by influenza A infection. 2. Probable purulent tracheobronchitis as a complicating factor as well. 3. Obesity. 4. Hyperlipidemia. 5. Diabetes mellitus. 6. Hypertension. 7. History of sleep apnea syndrome. 8. Status post bronchial thermoplasty for her severe chronic bronchial asthma. PLAN: The patient will continue with the current medications. No additional recommendations are made. Prognosis is guarded. She is a bit better today but not much better. We will continue to follow her closely and treat her with all the appropriate medications including short-acting beta agonist, short-acting muscarinic antagonist, long-acting beta agonist, inhaled corticosteroids, systemic corticosteroids, antibiotics, and Tamiflu. MMODL / IJN: [id number] /
[2018-04-29 17:04] LABS: Glucose,Whole Blood 321 mg/dL (75-99)
[2018-04-29 19:49] LABS: Glucose,Whole Blood 323 mg/dL (75-99)
[2018-04-29] MEDS: INSULIN DETEMIR 100 UNIT/ML 10 ML VIAL SQ SCH (21:31)
[2018-04-29] MEDS: ATORVASTATIN 40 MG TAB PO SCH (21:31)
[2018-04-30] MEDS: IPRATROPIUM-ALBUTEROL 3 ML NEB INHALATION SCH ×5 (00:42→15:31)
[2018-04-30 00:57] VITALS: TEMP 97.9
[2018-04-30] MEDS: methylPREDNISolone SOD SUCCI 125 MG/2 ML VIAL IV SCH ×2 (01:34→05:48)
[2018-04-30] MEDS: BUDESONIDE 1 MG/2 ML NEBU INHALATION SCH (06:49)
[2018-04-30] MEDS: FORMOTEROL FUMARATE 20 MCG/2 ML NEBU INHALATION SCH (06:49)
[2018-04-30] MEDS: risperiDONE 2 MG TAB PO SCH (07:40)
[2018-04-30] MEDS: INSULIN ASPART 100 UNIT/ML 1 ML 10 ML VIAL SQ SCH ×4 (07:40→12:19)
[2018-04-30 07:43] LABS: Glucose,Whole Blood 373 mg/dL (75-99)
[2018-04-30 07:47] VITALS: BP 150/79; RESP 18
[2018-04-30] MEDS: AMMONIUM LACTATE 12% LOTION 225 GM BTL TOPICAL SCH (09:49)
[2018-04-30] MEDS: AZITHROMYCIN 500 MG TAB PO SCH (09:49)
[2018-04-30] MEDS: VERAPAMIL SR 240 MG TABLET.ER PO SCH (09:50)
[2018-04-30] MEDS: OSELTAMIVIR 75 MG CAP PO SCH (09:50)
[2018-04-30] MEDS: LORazepam 0.5 MG TAB PO SCH (09:50)
[2018-04-30] MEDS: CITALOPRAM HYDROBROMIDE 20 MG TAB PO SCH (09:50)
[2018-04-30] MEDS: LISINOPRIL-HCTZ 20-12.5 MG 1 EACH TAB PO SCH (09:50)
[2018-04-30] MEDS: metFORMIN 500 MG TAB PO SCH (09:50)
[2018-04-30] MEDS: traMADol 50 MG TAB PO SCH ×2 (09:51→12:21)
[2018-04-30 11:34] LABS: Glucose,Whole Blood 391 mg/dL (75-99)
--- NOTE | 2018-04-30 11:47 | P.PN ---
Subjective 71-year-old admitted with for asthma exacerbation patient is still on 2 L of oxygen patient wheezing significantly improved patient is bit tachycardic. Patient will be continued on systemic steroids today. Possibly of discharge tomorrow. 04/30/2018 Patient's oxygen saturation significantly dropped upon ablation yesterday. Today they're around 88%. Patient lung exam is clear to ask of the patient. If patient stays in one more day on steroids and inhalational treatments she may not require oxygen. We'll cut down the steroids to 40 IV twice a day Constitutional: Denied any fatigue denied any fever. Cardio vascular: denied any chest pain, palpitations Gastrointestinal denied any nausea vomiting Pulmonary: improved shortness of breath Neurologic denied any new focal deficits All inpatient medications were reviewed and appropriate changes in these medications as dictated in the interval history and assessment and plan. Objective - Vital Signs Vital signs: Vital Signs Temp 97.9 F 04/30/18 07:45 Pulse 102 H 04/30/18 11:11 Resp 18 04/30/18 07:47 BP 150/79 04/30/18 07:45 Pulse Ox 93 L 04/30/18 07:47 Intake & Output 04/29/18 04/30/18 04/30/18 18:59 06:59 18:59 Intake Total 560 1020 Balance 560 1020 Intake: IV 20 Invasive Line 2 20 Oral 560 1000 Other: # Voids 1 3 - Exam PHYSICAL EXAMINATION: GENERAL: The patient is alert and oriented x3, not in any acute distress. Obese HEENT: Pupils are round and equally reacting to light. EOMI. No scleral icterus. No conjunctival pallor. Normocephalic, atraumatic. No pharyngeal erythema. No thyromegaly. CARDIOVASCULAR: S1 and S2 present. No murmurs, rubs, or gallops. His tachycardia PULMONARY: Good air entry into bilateral lung peterson no expiratory wheezing ABDOMEN: Soft, nontender, nondistended, normoactive bowel sounds. No palpable organomegaly. MUSCULOSKELETAL: No joint swelling or deformity. EXTREMITIES: No cyanosis, clubbing, or pedal edema. NEUROLOGICAL: Gross neurological examination did not reveal any focal deficits. SKIN: No rashes. - Labs CBC & Chem 7: 04/29/18 09:04 04/29/18 09:04 Labs: Abnormal Lab Results - Last 24 Hours (Table) 04/29/18 04/29/1819 Range/Units 16:53 19:38 07:31 POC Glucose (mg/dL) 321 H 323 H 373 H (75-99) mg/dL 04/30/18 Range/Units 11:23 POC Glucose (mg/dL) 391 H (75-99) mg/dL Assessment and Plan Plan: 1 acute asthma exacerbation triggered with influenza: Patient will continued on systemic steroids inhalational treatments area at patient appears to have chronic severe persistent bronchial asthmaPeter patient is still hypoxic and her lungs sound GERD because of which I'll rule out pulmonary embolism initially with a d-dimer which will be most probably be elevated we'll obtain a CT angios the chest if it is elevated to rule out pulmonary embolism. Patient today will require oxygen to be discharged home if we give her 1 more day of inhalational treatments and the steroids patient may not require any accident probably can be discharged tomorrow if there is no PE and if her saturations are above 88% -Tracheobronchitis possibility of secondary bacterial because of which patient is on azithromycin -Hyperlipidemia Hypertension Diabetes mellitus -Hypertension -Sleep apnea
--- NOTE | 2018-04-30 13:23 | PN ---
PROGRESS NOTE DATE OF SERVICE: April 30, 2018 A 38-year-old female with a history of chronic bronchial asthma. She came with an asthma exacerbation triggered by influenza a infection. She needs to be on Tamiflu 75 mg twice a day for 5 days. She can likely be discharged home in the near future. Her asthma is much improved. She is still short of breath and coughing a bit but she does feel better. Less wheezing. Less phlegm production. Today, she was sitting up in bed and did not appear to have any respiratory distress. PHYSICAL EXAMINATION: Current vital signs include temperature 97.9, heart rate 102, respiratory rate 16, blood pressure 150/79, room air saturation only 88%. If she is discharged, she may need to be discharged home on oxygen therapy at 2 L. HEENT examination is grossly unremarkable. Mucous membranes are moist. Nasal O2 noted. NECK: Supple. Full range of motion. No adenopathy or thyromegaly. Neck veins are flat. Cardiovascular examination reveals mild tachycardia. Heart rate 100. S1, S2 normal. LUNGS: Some expiratory wheezes and rhonchi. Breath sounds are diminished. There is prolongation on forced maneuver. Adventitious lung sounds are more prominent on forced maneuver. Abdomen is obese. Bowel sounds are heard. Extremities are intact. No cyanosis, clubbing, or edema. Skin without rash. Neurologic examination is nonfocal. LAB DATA: Microbiology data is negative. Labs are reviewed. No data from today. No recent x-ray data. Medications are reviewed. ASSESSMENT: 1. Asthma exacerbation complicated by and triggered by influenza A infection. 2. Probable purulent tracheobronchitis. 3. Severe persistent asthma, status post bronchial thermoplasty as well as chronic Xolair therapy. 4. Obesity. 5. Hyperlipidemia. 6. Diabetes mellitus. 7. Hypertension. 8. History of sleep apnea syndrome. 9. Status post bronchial thermoplasty for severe chronic bronchial asthma. PLAN: The patient's medications are reviewed. Everything is appropriate. The primary will decide about discharge. She will likely have to go home on oxygen therapy. She should follow up with me in the office. She should go home on the Tamiflu for a total of 5 days at 75 mg twice a day. She should also be discharged home on a short course of antibiotics and a prednisone burst and taper, 40 mg for 4 days, 30 mg for 4 days, 20 mg for 4 days, and then 10 mg for 4 days, finally stop. Additional recommendations and suggestions are forthcoming. She does have a followup with me in the office on May 08. MMODL / IJN: [id number] /
--- NOTE | 2018-04-30 14:38 | P.DS ---
Providers Date of admission: 04/27/18 20:55 Attending physician: Dima Law Consults: 04/27/18 20:55 Consult Physician Routine Consulting Provider: Christopher Tucker Consult Reason/Comments: COPD exacerbation Do you want consulting provider notified?: Yes, Notify in am Primary care physician: Dima Law Hospital Course: Later in the day patient wanted to go home and the repeated the home O2 evaluation again patient is saturating at 92% upon ambulation will not require any home oxygen and patient is being discharged with tapering doses of steroids and increase the Lantus to 60 units from 40 units as long as she is on oral steroids. Please refer to my dictation of her progress note from today for further details and patient will follow with Dr. Law in about 2-3 days as an outpatient. Patient Condition at Discharge: Serious Plan - Discharge Summary Discharge Rx Participant: No New Discharge Prescriptions: New Oseltamivir [Tamiflu] 75 mg PO Q12HR #10 cap predniSONE 10 mg PO DAILY #30 tab Ranitidine HCl [Zantac] 150 mg PO BID #30 tab Continue Albuterol Nebulized [Ventolin Nebulized] 2.5 mg INHALATION RT-QID PRN PRN Reason: Shortness Of Breath Budesonide/Formoterol Fumarate [Symbicort 160-4.5 Mcg Inhaler] 2 puff INHALATION RT-BID Albuterol Sulfate [Ventolin HFA] 2 puff INHALATION RT-Q4H PRN PRN Reason: Shortness Of Breath Omalizumab [Xolair] 300 mg SQ Q28D metFORMIN HCL 1,000 mg PO BID Citalopram Hydrobromide [CeleXA] 40 mg PO DAILY Lisinopril-Hctz 20-12.5 mg [Zestoretic 20-12.5] 1 tab PO DAILY LORazepam [Ativan] 0.5 mg PO BID Verapamil HCl [Verapamil ER] 240 mg PO DAILY Atorvastatin [Lipitor] 40 mg PO HS risperiDONE [RisperDAL] 2 mg PO AC-BID Insulin Aspart [NovoLOG (formulary)] 30 units SQ AC-TID Ammonium Lactate Lotion [Lac-Hydrin 12% Lotion] 1 applic TOPICAL BID Insulin Glargine,Hum.rec.anlog [Lantus Solostar] 40 unit SQ HS #0 Discharge Medication List Albuterol Nebulized [Ventolin Nebulized] 2.5 mg INHALATION RT-QID PRN 08/06/13 [ History] Albuterol Sulfate [Ventolin HFA] 2 puff INHALATION RT-Q4H PRN 08/06/13 [History] Budesonide/Formoterol Fumarate [Symbicort 160-4.5 Mcg Inhaler] 2 puff INHALATION RT-BID 08/06/13 [History] Citalopram Hydrobromide [CeleXA] 40 mg PO DAILY 08/06/13 [History] Lisinopril-Hctz 20-12.5 mg [Zestoretic 20-12.5] 1 tab PO DAILY 08/06/13 [History ] Omalizumab [Xolair] 300 mg SQ Q28D 08/06/13 [History] metFORMIN HCL 1,000 mg PO BID 08/06/13 [History] LORazepam [Ativan] 0.5 mg PO BID 12/10/13 [History] Atorvastatin [Lipitor] 40 mg PO HS 03/09/16 [History] Verapamil HCl [Verapamil ER] 240 mg PO DAILY 03/09/16 [History] risperiDONE [RisperDAL] 2 mg PO AC-BID 04/05/16 [History] Insulin Aspart [NovoLOG (formulary)] 30 units SQ AC-TID 06/24/16 [History] Ammonium Lactate Lotion [Lac-Hydrin 12% Lotion] 1 applic TOPICAL BID 04/27/18 [ History] Insulin Glargine,Hum.rec.anlog [Lantus Solostar] 40 unit SQ HS #0 04/30/18 [Rx] Oseltamivir [Tamiflu] 75 mg PO Q12HR #10 cap 04/30/18 [Rx] Ranitidine HCl [Zantac] 150 mg PO BID #30 tab 04/30/18 [Rx] predniSONE 10 mg PO DAILY #30 tab 04/30/18 [Rx] Follow up Appointment(s)/Referral(s): Dima Law MD [Primary Care Provider] - 3 Days Discharge Disposition: HOME SELF-CARE
[2018-04-30 15:41] VITALS: PULSE 101
[2018-04-30] MEDS ORDERED: methylPREDNISolone SOD SUCCI 40 MG/ML 1 ML VIAL IV SCH (21:00)
[2018-05-04] MEDS ORDERED: OMALIZUMAB 150 MG/ML SYRINGE SQ SCH (09:00)
== END 2018-04-30 15:50 | disposition home or self-care (01) | DRG 194 ==
LOC: EC 17:16 → 4SSUR 20:55
PROVIDERS: ADMIT Family Medicine; ATTEND Family Medicine
DX: J10.1 Influenza due to other identified influenza virus with other respiratory manifestations (principal); J45.51 Severe persistent asthma with (acute) exacerbation; Z68.41 Body mass index [BMI] 40.0-44.9, adult; E11.9 Type 2 diabetes mellitus without complications; E66.9 Obesity, unspecified; E78.5 Hyperlipidemia, unspecified; F32.9 Major depressive disorder, single episode, unspecified; F41.9 Anxiety disorder, unspecified; J41.1 Mucopurulent chronic bronchitis; R09.02 Hypoxemia; F42.9 Obsessive-compulsive disorder, unspecified; G47.30 Sleep apnea, unspecified; I10 Essential (primary) hypertension; Z80.8 Family history of malignant neoplasm of other organs or systems; Z79.899 Other long term (current) drug therapy; Z79.51 Long term (current) use of inhaled steroids; Z79.4 Long term (current) use of insulin; Z99.89 Dependence on other enabling machines and devices; Z90.49 Acquired absence of other specified parts of digestive tract
CPT/HCPCS: 36415; 71046; 80053; 82550; 82553; 83735; 83880; 84484; 85025; 85027; 85379; 85610; 85730; 87502; 93005; 94640; 94760; 96361; 96365; 96366; 96375; 99291

== ENCOUNTER → 2019-02-27 | Outpatient (CLI) | payer MEDICARE, OTHER ==
[2019-02-27 16:00] VITALS: BP 168/74; PULSE 112; RESP 18; TEMP 98.8
--- NOTE | 2019-02-27 16:55 | P.HPOB ---
History of Present Illness H&P Date: 02/27/19 Chief Complaint: The patient is here for her routine gynecologic exam. This is a 38-year-old with an LMP of 02/13/2019. She has been using condoms and spermicide for control. She was interested in permanent sterilization with tubal sterilization and a referral was made last year, but she was told that the doctor may not do the procedure since she only has one child, according to the patient. The patient's states that she had a direct to consumer saliva DNA test done by "[employer]". She states that she tested positive for a cancer mutation. She believes it is for the breast cancer gene, but is not certain of the name of the mutation. She states her grandmother also tested positive for this mutation, but her mother tested negative for it. These were all done through the same company. She states her menstrual periods have become less frequent about every 2-3 months since she was put on risperidone about 2 years ago. She states her menstrual periods are normal when she has them. She is without gynecologic complaints. Review of Systems The patient has gained 20 pounds over the last year. She denies respiratory, cardiac, or G.I. problems. 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 History of Any Multi-Drug Resistant Organisms: None Reported Past Surgical History: Appendectomy, Section Additional Past Surgical History / Comment(s): bronchioplasty, moles removed Past Anesthesia/Blood Transfusion Reactions: No Reported Reaction Past Psychological History: Anxiety, Depression Additional Psychological History / Comment(s): OCD. Smoking Status: Never smoker Past Alcohol Use History: None Reported Past Drug Use History: None Reported Additional History: She has been since 2001 and does not work outside of the home. - Past Family History Mother Family Medical History: Cancer Additional Family Medical History / Comment(s): skin cancer Maternal grandmother Family Medical History: Cancer Additional Family Medical History / Comment(s): Breast, bone and skin cancer. The patient states her grandmother tested positive for a breast cancer gene. Medications and Allergies Home Medications Medication Instructions Recorded Confirmed Type Albuterol Nebulized [Ventolin 2.5 mg INHALATION RT-QID PRN 08/06/13 02/27/19 History Nebulized] Albuterol Sulfate [Ventolin HFA] 2 puff INHALATION RT-Q4H PRN 08/06/13 02/27/19 History Budesonide/Formoterol Fumarate 2 puff INHALATION RT-BID 08/06/13 02/27/19 History [Symbicort 160-4.5 Mcg Inhaler] Citalopram Hydrobromide [CeleXA] 40 mg PO DAILY 08/06/13 02/27/19 History Lisinopril-Hctz 20-12.5 mg 1 tab PO DAILY 08/06/13 02/27/19 History [Zestoretic 20-12.5] Omalizumab [Xolair] 300 mg SQ Q28D 08/06/13 02/27/19 History metFORMIN HCL 1,000 mg PO BID 08/06/13 02/27/19 History LORazepam [Ativan] 0.5 mg PO BID 12/10/13 02/27/19 History Atorvastatin [Lipitor] 40 mg PO HS 03/09/16 02/27/19 History Verapamil HCl [Verapamil ER] 240 mg PO DAILY 03/09/16 02/27/19 History risperiDONE [RisperDAL] 2 mg PO AC-BID 04/05/16 02/27/19 History INSULIN ASPART (NovoLOG) [NovoLOG 30 units SQ AC-TID 06/24/16 02/27/19 History (formulary)] Ammonium Lactate Lotion 1 applic TOPICAL BID 04/27/18 02/27/19 History [Lac-Hydrin 12% Lotion] Insulin Glargine,Hum.rec.anlog 40 unit SQ HS #0 04/30/18 02/27/19 Rx [Lantus Solostar] Allergies Allergy/AdvReac Type Severity Reaction Status Date / Time Penicillins Allergy Rash/Hives Verified 02/27/19 15:59 Exam Vital Signs Temp Pulse Resp BP Pulse Ox 02/27/19 15:51 98.8 F 112 H 18 168/74 92 L Intake and Output 02/27/19 02/27/19 02/27/19 06:59 14:59 22:59 Other: Weight 126.099 kg Height 5 feet 5 inches, weight 278 pounds, BMI 46.3. This is a well-developed well-nourished obese white female who is alert and oriented times 3 in no acute distress. HEENT: Within normal limits. NECK: Supple without mass or thyromegaly. CHEST AND LUNGS: Clear to auscultation. HEART: Regular rate and rhythm. BREASTS: Are without mass or discharge. AXILLARY EXAM: Negative for adenopathy. BACK: Negative for CVA tenderness. ABDOMEN: Soft, obese, nontender, without palpable masses. PELVIC EXAM: Normal external genitalia. Cervix and vagina appear normal. There is no unusual discharge. There is no evidence of prolapse. The uterus is midposition, nongravid size and nontender. There are no palpable adnexal masses or tenderness. Bimanual examination is somewhat limited secondary to her size. RECTAL EXAM: negative for mass or tenderness. EXTREMITIES: Nontender. IMPRESSION: 1. 38-year-old obese female with normal gynecologic exam who is using condoms and spermicide for control. 2. Multiple medical problems. 3. Family history of breast cancer in her maternal grandmother. 4. Abnormal testing reported by the patient in a direct to [employer] saliva DNA test. The patient states she tested positive for a cancer gene. Incomplete database. 5. Oligomenorrhea with menstrual periods every 2-3 months since starting on Risperdal PLAN: 1. Pap smear was deferred since she had a normal one on 03/07/2018. 2. Self breast awareness was discussed with the patient. 3. I have asked the patient to send me the report from her in DNA testing that she had done. I will then try to determine what to recommend for the patient. We will consider referral to a cancer genetics Department for confirmation and appropriate counseling. 4. She was notified that her blood pressure is elevated. She states it was recently done at a different doctors office and was normal. I have recommended that she check her blood pressure at home on a regular basis since she does have a blood pressure cuff. She will follow-up with Dr. Law for blood pressure elevations. 5. She will keep a menstrual calendar and call if she is having menstrual problems such as hypermenorrhea, polymenorrhea or dysfunctional bleeding. 6. She was advised to return in one year for her annual well woman exam and as needed.
== END | disposition home or self-care (01) ==
LOC: WWCWWP 15:47
PROVIDERS: ATTEND Obstetrics & Gynecology
DX: Z53.9 Procedure and treatment not carried out, unspecified reason (principal)

== ENCOUNTER → 2019-04-12 | Outpatient (CLI) | payer MEDICARE, OTHER ==
--- NOTE | 2019-04-12 14:14 | SFUN ---
SLEEP CENTER FOLLOW UP NOTE DATE OF SERVICE: 04/12/2019 A 39-year-old lady who has been followed in the Sleep Center for treatment of obstructive sleep apnea-hypopnea syndrome. Previously, I saw patient in December of 2016. The patient did not use her machine for a while, but for the last period of time, she started to use it again and she is able to use her CPAP equipment every night for the whole night without significant problems. No snoring with the machine. [place] Sleepiness Scale today is 2, which is normal. I checked her CPAP unit pressure it is 11 cm of water. Usage is 28/30 nights and 23/30 nights for more than 4 hours with average usage 5.4 hours which is normal compliance. Leak is 30 L/minute which is borderline for the full-face mask. Apnea-hypopnea index is 1.3, which is normal. MEDICATIONS: Citalopram, lisinopril, hydrochlorothiazide, metformin, risperidone, Lipitor, Symbicort, Ventolin, NovoLog, albuterol, lorazepam, ammonium lactate lotion. PHYSICAL EXAM: Patient in no distress, BP 132/78, HR around 116, RR 16, height 5, 5-1/2, weight 280, body mass index 45.8, temperature 98.0, oxygen saturation at room air 96%. OROPHARYNX: Extremely low soft palate, Mallampati 4. HEART: S1, S2. Tachycardia. ABDOMEN: Obese. NECK: Supple, no JVD. Thyroid is not palpable. LUNGS: Clear to percussion and to auscultation. Good air exchange. No wheezing or rhonchi. EXTREMITIES: No clubbing or cyanosis. CLEANERS: Awake, alert, and oriented X3. Cranial nerves 2 to 7 intact. There is no fasciculation or atrophy. noted. No focal deficits observed. IMPRESSION: 1. Obstructive sleep apnea-hypopnea syndrome. Patient demonstrated good compliance with treatment, benefitting from treatment. 2. Obesity. The patient significantly increase her weight on about 48 pounds since the previous visit, but according to reading from the machine, respiration is under control with the previous pressure. 3. Diabetes mellitus. 4. Anxiety. 5. Asthma. 6. Hypertension. 7. Tachycardia. PLAN: 1. Patient will continue treatment with CPAP every night for the whole night. 2. Prescription for all necessary CPAP supplies including Simplex full-face mask, medium size, heated tube, filters. 3. Sleep hygiene with regular time in bed for at least 7-1/2 -8 hours. 4. No driving if feeling sleepiness. Thank you very much for allowing me to participate in the management of your patient, Sincerely, Jose Guadalupe Bucio MD, PhD, FAASM Diplomat of [place] [employer] [place] [employer] [facility] MMODL / IJN: [id number] /
== END | disposition home or self-care (01) ==
LOC: SLEEP 13:14
PROVIDERS: ATTEND Internal Medicine
DX: G47.33 Obstructive sleep apnea (adult) (pediatric) (principal); E11.9 Type 2 diabetes mellitus without complications; J45.909 Unspecified asthma, uncomplicated; I10 Essential (primary) hypertension; F41.9 Anxiety disorder, unspecified; R00.0 Tachycardia, unspecified; Z99.89 Dependence on other enabling machines and devices; E66.9 Obesity, unspecified

== ENCOUNTER 2019-10-20 18:16 | Emergency (ER) | payer MEDICARE ==
[2019-10-20 18:26] VITALS: BP 154/70; PULSE 99; RESP 18; TEMP 98.2
[2019-10-20] MEDS ORDERED: OFLOXACIN 0.3% OPHTH DROPS 5 ML BOTTLE LEFT EAR STA (18:55)
[2019-10-20] MEDS ORDERED: LEVOFLOXACIN 500 MG TAB PO STA (18:56)
--- NOTE | 2019-10-20 19:06 | ED ---
General Adult HPI - General Chief complaint: ENT Stated complaint: lt ear pain Time Seen by Provider: 10/20/19 18:28 Source: patient, RN notes reviewed Mode of arrival: ambulatory Limitations: no limitations - History of Present Illness Initial comments: 39-year-old female with a past medical history of asthma, IDDM, hyperlipidemia, hypertension presents to the emergency room for left ear pain. Patient states that she was swimming every day. States that a few days ago for left ear started to hurt. States there is some drainage. States it is now affecting her hearing. Patient denies cough congestion and rhinorrhea sore throat. Denies fevers or chills.Patient has no other complaints at this time including shortness of breath, chest pain, abdominal pain, nausea or vomiting, headache, or visual changes. - Related Data Home Medications Medication Instructions Recorded Confirmed Albuterol Nebulized [Ventolin 2.5 mg INHALATION RT-QID PRN 08/06/13 06/04/19 Nebulized] Albuterol Sulfate [Ventolin HFA] 2 puff INHALATION RT-Q4H PRN 08/06/13 06/04/19 Budesonide/Formoterol Fumarate 2 puff INHALATION RT-BID 08/06/13 06/04/19 [Symbicort 160-4.5 Mcg Inhaler] Citalopram Hydrobromide [CeleXA] 40 mg PO DAILY 08/06/13 06/04/19 Lisinopril-Hctz 20-12.5 mg 1 tab PO DAILY 08/06/13 06/04/19 [Zestoretic 20-12.5] Omalizumab [Xolair] 300 mg SQ Q28D 08/06/13 06/04/19 metFORMIN HCL 1,000 mg PO BID 08/06/13 06/04/19 LORazepam [Ativan] 0.5 mg PO BID 12/10/13 06/04/19 Atorvastatin [Lipitor] 40 mg PO HS 03/09/16 06/04/19 Verapamil HCl [Verapamil ER] 240 mg PO DAILY 03/09/16 06/04/19 risperiDONE [RisperDAL] 2 mg PO AC-BID 04/05/16 06/04/19 INSULIN ASPART (NovoLOG) [NovoLOG 30 units SQ AC-TID 06/24/16 06/04/19 (formulary)] Ammonium Lactate Lotion 1 applic TOPICAL BID 04/27/18 06/04/19 [Lac-Hydrin 12% Lotion] Previous Rx's Medication Instructions Recorded Insulin Glargine,Hum.rec.anlog 40 unit SQ HS #0 04/30/18 [Lantus Solostar] Levofloxacin [Levaquin] 500 mg PO DAILY 6 Days #6 tab 10/20/19 Ofloxacin 0.3% Ophth Soln [Ocuflox 10 drops LEFT EAR DAILY 7 Days #20 10/20/19 Ophth Soln] ml Allergies Allergy/AdvReac Type Severity Reaction Status Date / Time Penicillins Allergy Rash/Hives Verified 10/20/19 18:26 Review of Systems ROS Statement: Those systems with pertinent positive or pertinent negative responses have been documented in the HPI. ROS Other: All systems not noted in ROS Statement are negative. Past Medical History Past Medical History: Asthma, Diabetes Mellitus, Hyperlipidemia, Hypertension Additional Past Medical History / Comment(s): dX SLEEP APNEA-June 2015-CPAP History of Any Multi-Drug Resistant Organisms: None Reported Past Surgical History: Appendectomy, Section Additional Past Surgical History / Comment(s): bronchioplasty, moles removed Past Anesthesia/Blood Transfusion Reactions: No Reported Reaction Past Psychological History: Anxiety, Depression Smoking Status: Former smoker Past Alcohol Use History: Occasional - Past Family History Mother Family Medical History: Cancer Additional Family Medical History / Comment(s): skin cancer Maternal grandmother Family Medical History: Cancer Additional Family Medical History / Comment(s): Breast, bone and skin cancer. The patient states her grandmother tested positive for a breast cancer gene. General Exam Limitations: no limitations General appearance: alert, in no apparent distress Head exam: Present: atraumatic, normocephalic, normal inspection Eye exam: Present: normal appearance, PERRL, EOMI. Absent: scleral icterus, conjunctival injection, periorbital swelling ENT exam: Present: normal exam, mucous membranes moist, TM's normal bilaterally (Left tympanic membrane is intact.). Absent: normal external ear exam (Patient has purulent material within the ear canal with minimal edema. Pain with traction and palpation of the tragus and pinna.), other (no mastoid tenderness) Neck exam: Present: normal inspection, full ROM. Absent: tenderness, meningismus, lymphadenopathy Respiratory exam: Present: normal lung sounds bilaterally. Absent: respiratory distress, wheezes, rales, rhonchi, stridor Cardiovascular Exam: Present: regular rate, normal rhythm, normal heart sounds. Absent: systolic murmur, diastolic murmur, rubs, gallop, clicks Neurological exam: Present: alert Course Vital Signs 10/20/19 18:24 Temperature 98.2 F Pulse Rate 99 Respiratory 18 Rate Blood Pressure 154/70 O2 Sat by Pulse 99 Oximetry Medical Decision Making - Medical Decision Making Vitals are stable. Patient is afebrile. Sugars have been controlled, last glucose was 140 prior to arrival. Physical exam shows evidence of otitis externa. No mastoid tenderness. Tympanic membranes appears normal. Patient was started on ofloxacin drops. She was started on Levaquin daily as well given a penicillin ALLERGY. Dr. Up also visualized patient's ear and agrees to treatment plan. Patient will follow-up with her doctor on Tuesday. We discussed return parameters with her to return for any worsening symptoms. Disposition Clinical Impression: Otitis externa Disposition: HOME SELF-CARE Condition: Good Instructions (If sedation given, give patient instructions): Otitis Externa (ED) Additional Instructions: Please use ofloxacin drops as directed by placing 10 drops daily in the left ear for 7 days. Take antibiotic daily as well. Follow up with your doctor on Tuesday for reevaluation. If symptoms are worsening return here to the emergency room. Prescriptions: Levofloxacin [Levaquin] 500 mg PO DAILY 6 Days #6 tab Ofloxacin 0.3% Ophth Soln [Ocuflox Ophth Soln] 10 drops LEFT EAR DAILY 7 Days #20 ml Is patient prescribed a controlled substance at d/c from ED?: No Referrals: Dima Law MD [Primary Care Provider] - 1-2 days Time of Disposition: 19:04
== END 2019-10-20 19:37 | disposition home or self-care (01) ==
LOC: EC 18:16
DX: H60.92 Unspecified otitis externa, left ear (principal); J45.909 Unspecified asthma, uncomplicated; E11.9 Type 2 diabetes mellitus without complications; E78.5 Hyperlipidemia, unspecified; I10 Essential (primary) hypertension; G47.30 Sleep apnea, unspecified; Z79.51 Long term (current) use of inhaled steroids; Z79.4 Long term (current) use of insulin; Z79.899 Other long term (current) drug therapy; Z88.0 Allergy status to penicillin; Z99.89 Dependence on other enabling machines and devices; Z87.891 Personal history of nicotine dependence
CPT/HCPCS: 99282

== ENCOUNTER → 2020-04-01 | Outpatient (CLI) | payer MEDICARE ==
[2020-04-01 16:04] VITALS: BP 136/78; PULSE 111; RESP 18; TEMP 98.5
--- NOTE | 2020-04-01 16:51 | P.HPOB ---
History of Present Illness H&P Date: 04/01/20 Chief Complaint: The patient is here for her routine gynecologic exam. This is a 40-year-old with an LMP of 02/26/2020. The patient has been using condoms and spermicide for control. She is declining any other methods for control at this time. Her menstrual periods have been less frequent especially during the first part of the year. She believes they have become less frequent when she was started on risperidone. The last 4 months of 2019, the menstrual periods were regular every month. She is otherwise without complaints. Review of Systems The patient has lost 16 pounds over the last year. She thinks this may be r elated to her better diabetes control with new medications. She has also been trying to be more active. She denies respiratory, cardiac, or G.I. problems. 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 History of Any Multi-Drug Resistant Organisms: None Reported Past Surgical History: Appendectomy, Section Additional Past Surgical History / Comment(s): bronchioplasty, moles removed Past Anesthesia/Blood Transfusion Reactions: No Reported Reaction Past Psychological History: Anxiety, Depression Additional Psychological History / Comment(s): OCD. Smoking Status: Former smoker Past Alcohol Use History: None Reported Past Drug Use History: None Reported Additional History: She has been since 2001 and does not work outside of the home. - Past Family History Mother Family Medical History: Cancer Additional Family Medical History / Comment(s): skin cancer Maternal grandmother Family Medical History: Cancer Additional Family Medical History / Comment(s): Breast, bone and skin cancer. The patient states her grandmother tested positive for a breast cancer gene. The patient's mother tested negative. Medications and Allergies Home Medications Medication Instructions Recorded Confirmed Type Albuterol Nebulized [Ventolin 2.5 mg INHALATION RT-QID PRN 08/06/13 03/18/20 History Nebulized] Albuterol Sulfate [Ventolin HFA] 2 puff INHALATION RT-Q4H PRN 08/06/13 03/18/20 History Budesonide/Formoterol Fumarate 2 puff INHALATION RT-BID 08/06/13 03/18/20 History [Symbicort 160-4.5 Mcg Inhaler] Citalopram Hydrobromide [CeleXA] 40 mg PO DAILY 08/06/13 03/18/20 History Lisinopril-Hctz 20-12.5 mg 1 tab PO DAILY 08/06/13 03/18/20 History [Zestoretic 20-12.5] Omalizumab [Xolair] 300 mg SQ Q28D 08/06/13 03/18/20 History metFORMIN HCL 1,000 mg PO BID 08/06/13 03/18/20 History LORazepam [Ativan] 0.5 mg PO BID 12/10/13 03/18/20 History Atorvastatin [Lipitor] 40 mg PO HS 03/09/16 03/18/20 History Verapamil HCl [Verapamil ER] 240 mg PO DAILY 03/09/16 03/18/20 History risperiDONE [RisperDAL] 2 mg PO AC-BID 04/05/16 03/18/20 History Ammonium Lactate Lotion 1 applic TOPICAL BID 04/27/18 03/18/20 History [Lac-Hydrin 12% Lotion] Dulaglutide [Trulicity] 1 injection SQ WEEKLY 12/24/19 03/18/20 History Insulin Aspart [NovoLOG] 50 units SQ TID 04/01/20 04/01/20 History Insulin Glargine,Hum.rec.anlog 50 unit SQ HS 04/01/20 04/01/20 History [Lantus Solostar] Allergies Allergy/AdvReac Type Severity Reaction Status Date / Time Penicillins Allergy Rash/Hives Verified 04/01/20 15:58 Exam Vital Signs Temp Pulse Resp BP Pulse Ox 04/01/20 15:59 98.5 F 111 H 18 136/78 96 Intake and Output 04/01/20 04/01/20 04/01/20 06:59 14:59 22:59 Other: Weight 118.841 kg Height 5 feet 5 inches, weight 262 pounds, BMI 43.6. This is a well-developed well-nourished obese white female who is alert and oriented times 3 in no acute distress. HEENT: Within normal limits. NECK: Supple without mass or thyromegaly. CHEST AND LUNGS: Clear to auscultation. HEART: Regular rate and rhythm. BREASTS: Are without mass or discharge. AXILLARY EXAM: Negative for adenopathy. BACK: Negative for CVA tenderness. ABDOMEN: Soft, obese, nontender, without palpable masses. PELVIC EXAM: Normal external genitalia. Cervix and vagina appear normal. There is no unusual discharge. There is no evidence of prolapse. The uterus is midposition, nongravid size and nontender. There are no palpable adnexal masses or tenderness. Bimanual examination is somewhat limited secondary to her size. RECTAL EXAM: negative for mass or tenderness EXTREMITIES: Nontender. IMPRESSION: 1. 40-year-old perimenopausal female with intermittent oligomenorrhea with unremarkable gynecologic exam. 2. Obesity 3. Multiple medical problems. 4. Family history of breast cancer in a maternal grandmother. PLAN: 1. Pap smear cotest was performed. 2. Self breast awareness was discussed with the patient. 3. I recommended yearly mammograms to start at age 40, at her next annual exam. 4. Last year the patient talked about having some type of consumer saliva DNA test which had some type of abnormality. She is not sure of what gene abnormality was found or if there was a gene abnormality found. She understands that she can show me the results so I can further comment on the test results. 5. Osteoporosis prevention was discussed. I have stressed the importance of adequate calcium, vitamin D and regular exercise. Recommended amounts of calcium and vitamin D were also discussed. 6. She has used condoms and spermicide for control and is not interested in any other form of control at this time. 7. The patient will keep a menstrual calendar and make an appointment if she is having menstrual problems. 8. She was advised to return in one year for her annual well woman exam.
--- NOTE | 2020-04-08 10:53 | P.PN ---
Progress Note - Text Progress Note Date: 04/08/20 OUTPATIENT FOLLOW-UP NOTE TEST(S)/RESULTS: Test results from 04/01/2020 include negative Pap smear and negative high-risk HPV test. The Pap smear indicated there was a shift in the vaginal justino suggestive of bacterial vaginosis. METHOD OF NOTIFICATION: The patient was notified by phone. PATIENT COMMENTS: The patient denies any symptoms such as vaginal discharge or vaginal odor. DIAGNOSIS: Negative Pap smear cotest. No symptoms of bacterial vaginosis. DISCUSSION: The patient was instructed to call if she develops symptoms such as vaginal discharge or vaginal odor. PLAN: She was advised to return in one year for her annual well woman exam.
== END | disposition home or self-care (01) ==
LOC: WWCWWP 15:52
PROVIDERS: ATTEND Obstetrics & Gynecology
DX: Z53.9 Procedure and treatment not carried out, unspecified reason (principal)

== ENCOUNTER → 2020-04-10 | Outpatient (CLI) | payer MEDICARE, OTHER ==
--- NOTE | 2020-04-11 08:18 | SFUN ---
SLEEP CENTER FOLLOW UP NOTE DATE OF SERVICE: 04/10/2020 This patient is a 40-year-old lady who has been followed in Sleep Center for treatment of obstructive sleep apnea-hypopnea syndrome. The patient successfully continues to use her BiPAP equipment every night for the whole night without any significant problems related to mask fitting, pressure or humidification. [place] Sleepiness Scale today is 4. I checked her CPAP unit. Pressure is 11 cm of water. Usage is 29/30 nights for more than 4 hours, which is great compliance. Average usage is 7.6 hours per night. Leak is only 5 L/minute. Apnea-hypopnea index is 0, which is absolutely perfect. MEDICATIONS: 1. Metformin 1000 mg twice a day. 2. NovoLog 50 units 3 times a day. 3. Lantus Solostar 50 units twice a day. 4. Citalopram 40 mg once a day. 5. Risperidone 2 mg twice a day. 6. Lorazepam 0.5 mg twice a day. 7. Lisinopril hydrochlorothiazide 20/12.5 mg once a day. 8. Verapamil ER 240 mg once a day. 9. Lipitor 40 mg once a day. 10.Ventolin inhaler up to 4 times a day. 11.Symbicort 160/4.5 . 12.Trulicity every 7 days. 13.Albuterol inhaler every 6 hours as needed. PHYSICAL EXAMINATION: GENERAL: A pleasant patient in no distress. VITAL SIGNS: BP 155/58, HR around 100, RR 15. Height 5 feet 5-1/2 inches, weight 261, BMI 42.7, temperature 98.0. Oxygen saturation at room air 94%. HEENT: PERRLA, EOMI. Evaluation of oropharynx showed tongue protrudes midline. Extremely low position of soft palate. Mallampati IV. NECK: Supple. No JVD. Thyroid is not palpable. Neck measures 20 inches in circumference. LUNGS: Clear to percussion and to auscultation. Good air exchange. No wheezing or rhonchi. HEART: S1, S2. Tachycardia. ABDOMEN: Obese. EXTREMITIES: No clubbing or cyanosis. COMMUNITY HEALTH EDUCATION COORDINATOR: Awake, alert, and oriented X3. Cranial nerves 2 to 7 intact. There is no fasciculation or atrophy. noted. No focal deficits observed. IMPRESSION: 1. Obstructive sleep apnea-hypopnea syndrome. Patient demonstrated great compliance with treatment, benefitting from treatment. 2. Obesity. The patient lost weight of around 20 pounds since previous visit. 3. Diabetes mellitus. 4. Anxiety. 5. Asthma. 6. Hypertension. 7. Tachycardia. PLAN: 1. Patient will continue to use PAP equipment every night for the whole night. 2. Sleep hygiene with regular time in bed for at least 7-1/2 to 8 hours. 3. Precautions related to driving. No driving if feeling sleepiness. 4. I will maintain all necessary prescription for PAP supplies including mask, tube, filters. 5. Watching weight. 6. No driving if feeling sleepiness. 7. Follow-up visit in 6 months or earlier if patient has any problems. Thank you very much for allowing me to participate in the management of your patient. Sincerely, Jose Guadalupe Bucio MD, PhD, FAASM Diplomat of [place] [employer] [place] [employer] Gis Consultant of [facility] [place] MMODL / IJN: [id number] /
== END | disposition home or self-care (01) ==
LOC: SLEEP 14:09
PROVIDERS: ATTEND Internal Medicine
DX: G47.33 Obstructive sleep apnea (adult) (pediatric) (principal); E66.9 Obesity, unspecified; E11.9 Type 2 diabetes mellitus without complications; F41.9 Anxiety disorder, unspecified; J45.909 Unspecified asthma, uncomplicated; I10 Essential (primary) hypertension; R00.0 Tachycardia, unspecified; Z99.89 Dependence on other enabling machines and devices; Z79.4 Long term (current) use of insulin; Z79.899 Other long term (current) drug therapy

== ENCOUNTER 2020-06-25 07:27 | Emergency (ER) | payer MEDICARE ==
[2020-06-25 07:32] VITALS: BP 125/63; PULSE 115; RESP 16; TEMP 98
[2020-06-25] MEDS ORDERED: DIPH,PERTUS(ACELL)TETVAC-LF 0.5 ML VIAL IM ONE (07:38)
--- NOTE | 2020-06-25 07:43 | ED ---
Fall HPI - General Chief Complaint: Fall Stated Complaint: Fall/Head injury and lac Time Seen by Provider: 06/25/20 07:34 Source: patient, RN notes reviewed Mode of arrival: ambulatory Limitations: no limitations - History of Present Illness Initial Comments: This a 40-year-old female presents emergency Department chief complaint of scalp laceration. Patient states that she had a shower states her feet were still wet states that she slipped and struck her head on the fridge. She had no loss conscious. Patient states she's unsure when her last tetanus. Patient denies any headache dizziness blurred vision neck pain patient states her some bleeding so she came worried. Patient offers no other complaints. Denies any nausea vomiting. - Related Data Home Medications Medication Instructions Recorded Confirmed Albuterol Nebulized [Ventolin 2.5 mg INHALATION RT-QID PRN 08/06/13 06/09/20 Nebulized] Albuterol Sulfate [Ventolin HFA] 2 puff INHALATION RT-Q4H PRN 08/06/13 06/09/20 Budesonide/Formoterol Fumarate 2 puff INHALATION RT-BID 08/06/13 06/09/20 [Symbicort 160-4.5 Mcg Inhaler] Citalopram Hydrobromide [CeleXA] 40 mg PO DAILY 08/06/13 06/09/20 Lisinopril-Hctz 20-12.5 mg 1 tab PO DAILY 08/06/13 06/09/20 [Zestoretic 20-12.5] Omalizumab [Xolair] 300 mg SQ Q28D 08/06/13 06/09/20 metFORMIN HCL 1,000 mg PO BID 08/06/13 06/09/20 LORazepam [Ativan] 0.5 mg PO BID 12/10/13 06/09/20 Atorvastatin [Lipitor] 40 mg PO HS 03/09/16 06/09/20 Verapamil HCl [Verapamil ER] 240 mg PO DAILY 03/09/16 06/09/20 risperiDONE [RisperDAL] 2 mg PO AC-BID 04/05/16 06/09/20 Ammonium Lactate Lotion 1 applic TOPICAL BID 04/27/18 06/09/20 [Lac-Hydrin 12% Lotion] Dulaglutide [Trulicity] 1 injection SQ WEEKLY 12/24/19 06/09/20 Insulin Aspart [NovoLOG] 50 units SQ TID 04/01/20 06/09/20 Insulin Glargine,Hum.rec.anlog 50 unit SQ HS 04/01/20 06/09/20 [Lantus Solostar] Allergies Allergy/AdvReac Type Severity Reaction Status Date / Time Penicillins Allergy Rash/Hives Verified 06/25/20 07:29 Review of Systems ROS Statement: Those systems with pertinent positive or pertinent negative responses have been documented in the HPI. ROS Other: All systems not noted in ROS Statement are negative. 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 PAST MEDICAL PRACTITIONERS HISTORY: She has no history of STDs. History of Any Multi-Drug Resistant Organisms: None Reported Past Surgical History: Appendectomy, Section Additional Past Surgical History / Comment(s): bronchioplasty, moles removed Past Anesthesia/Blood Transfusion Reactions: No Reported Reaction Past Psychological History: Anxiety, Depression Smoking Status: Never smoker Past Alcohol Use History: None Reported Past Drug Use History: None Reported - Past Family History Mother Family Medical History: Cancer Additional Family Medical History / Comment(s): skin cancer Maternal grandmother Family Medical History: Cancer Additional Family Medical History / Comment(s): Breast, bone and skin cancer. The patient states her grandmother tested positive for a breast cancer gene. The patient's mother tested negative. General Exam Limitations: no limitations General appearance: alert, in no apparent distress Head exam: Present: atraumatic, normocephalic. Absent: normal inspection (Small superficial 1 cm laceration that does not open left frontal in the hairline) Eye exam: Present: normal appearance, PERRL, EOMI. Absent: scleral icterus, conjunctival injection, periorbital swelling ENT exam: Present: normal exam, normal oropharynx, mucous membranes moist Neck exam: Present: normal inspection, full ROM. Absent: tenderness, meningismus, lymphadenopathy Respiratory exam: Present: normal lung sounds bilaterally. Absent: respiratory distress, wheezes, rales, rhonchi, stridor Cardiovascular Exam: Present: regular rate, normal rhythm, normal heart sounds. Absent: systolic murmur, diastolic murmur, rubs, gallop, clicks Neurological exam: Present: alert, oriented X3, CN II-XII intact, reflexes normal. Absent: motor sensory deficit Skin exam: Present: warm, dry, intact, normal color. Absent: rash Course Vital Signs 06/25/20 07:29 Temperature 98.0 F Pulse Rate 115 H Respiratory 16 Rate Blood Pressure 125/63 O2 Sat by Pulse 96 Oximetry Medical Decision Making - Medical Decision Making Patient's laceration does not require any closure. Patient has no headache dizziness no loss conscious neurologically intact. Patient will be discharged in stable condition tetanus is updated. Disposition Clinical Impression: Scalp laceration, Fall Disposition: HOME SELF-CARE Condition: Stable Instructions (If sedation given, give patient instructions): Laceration (ED) Additional Instructions: Please return to the Emergency Department if symptoms worsen or any other concerns. Is patient prescribed a controlled substance at d/c from ED?: No Referrals: Dima Law MD [Primary Care Provider] - 1-2 days Time of Disposition: 07:43
== END 2020-06-25 07:53 | disposition home or self-care (01) ==
LOC: EC 07:27
DX: S01.01XA Laceration without foreign body of scalp, initial encounter (principal); Z23 Encounter for immunization; J45.909 Unspecified asthma, uncomplicated; E11.9 Type 2 diabetes mellitus without complications; I10 Essential (primary) hypertension; F41.9 Anxiety disorder, unspecified; F32.9 Major depressive disorder, single episode, unspecified; Z88.1 Allergy status to other antibiotic agents; W01.198A Fall on same level from slipping, tripping and stumbling with subsequent striking against other object, initial encounter
CPT/HCPCS: 90471; 90715; 99283

== ENCOUNTER → 2020-08-21 | Outpatient (CLI) | payer MEDICARE ==
[2020-08-21 22:19] LABS: HIV 2 AB Non-Reactive (Non-Reactive); HIV AB P24 Non-Reactive (Non-Reactive); HIV P24 AG Non-Reactive (Non-Reactive)
[2020-08-22 01:04] LABS: Cyclic Citrull Pep IgG Unit <0.5 U/mL; Cyclic Citrullinated Pep IgG NEGATIVE (NEGATIVE)
[2020-08-22 15:23] LABS: C-ANCA <1:20 Titer (<1:20)
== END | disposition home or self-care (01) ==
LOC: LABWHC1 12:21
PROVIDERS: ATTEND Internal Medicine
DX: E78.2 Mixed hyperlipidemia (principal); I27.20 Pulmonary hypertension, unspecified; I10 Essential (primary) hypertension; R06.00 Dyspnea, unspecified; R00.2 Palpitations
CPT/HCPCS: 36415; 86038; 86200; 86255; 86431; 87390

== ENCOUNTER → 2020-08-26 | Outpatient (CLI) | payer MEDICARE ==
--- NOTE | 2020-08-26 14:57 | XR ---
EXAMINATION TYPE: XR chest 2V DATE OF EXAM: 08/26/2020 COMPARISON: 04/27/2018 HISTORY: History of pulmonary hypertension TECHNIQUE: Frontal and lateral views of the chest are obtained. FINDINGS: Heart size is within normal limits. Low lung volumes. Probable crowding of the pulmonary i nterstitium. There is minimal patchy left basilar airspace opacities suggestive of atelectasis or pne umonitis. No pleural effusion or pneumothorax. IMPRESSION: 1. Heart size is within normal limits. 2. Crowding of the pulmonary interstitium. Left basilar atelectasis or pneumonitis.
--- NOTE | 2020-08-26 15:07 | NM ---
EXAMINATION TYPE: NM pul vent and perfuse DATE OF EXAM: 08/26/2020 COMPARISON: Chest x-ray same date HISTORY: I27.2 Other secondary pulmonary hypertension TECHNIQUE: Utilizing inhalation of 35.2 mCi Tc 99m DTPA aerosol and intravenous injection of 4.63 mC i of Tc 99m MAA, ventilation and perfusion images are acquired post injection in multiple projections . FINDINGS: Normal radiotracer distribution is noted in the lungs. There is no evidence of mismatched defects. IMPRESSION: Low probability for pulmonary embolus.
== END | disposition home or self-care (01) ==
LOC: RADNMMAIN 12:26
PROVIDERS: ATTEND Internal Medicine
DX: I27.29 Other secondary pulmonary hypertension (principal)
CPT/HCPCS: 71046; 78582; A9540; A9567

== ENCOUNTER 2020-08-28 06:05 | Day surgery (SDC) | payer MEDICARE ==
[2020-08-22 14:51] VITALS: BMI 43.2
[~2020-08-28 06:05] MED LIST: ALPRAZolam 0.25 MG TAB PO PRN; ALPRAZolam 0.5 MG TAB PO PRN; ASPIRIN 325 MG TAB PO STA; ATORVASTATIN 80 MG TAB PO STA; NITROGLYCERIN SL TABS 0.4 MG TAB SUBLINGUAL PRN; SODIUM CHLORIDE 0.9% 1,000 ML in EMPTY BAG 1 BAG IV ONE
[2020-08-28] MEDS ORDERED: SODIUM CHLORIDE 0.9% 1,000 ML IV ONE (06:10)
[2020-08-28 06:37] LABS: Glucose,Whole Blood 198 mg/dL (75-99)
[2020-08-28 06:40] LABS: Basophils # (A) 0.1 k/uL (0-0.2); Basophils % (A) 1 %; Eosinophils # (A) 0.1 k/uL (0-0.7); Eosinophils % (A) 2 %; HCT 36.3 % (34.0-46.0); HGB 12.3 gm/dL (11.4-16.0); Lymphocytes # (A) 2.1 k/uL (1.0-4.8); Lymphocytes % (A) 27 %; MCH 28.2 pg (25.0-35.0); MCHC 33.7 g/dL (31.0-37.0); MCV 83.5 fL (80.0-100.0); Mean Platelet Volume 6.6; Monocytes # (A) 0.4 k/uL (0-1.0); Monocytes % (A) 5 %; Neutrophils # (A) 4.9 k/uL (1.3-7.7); Neutrophils % (A) 64 %; Platelet Count 374 k/uL (150-450); RBC 4.35 m/uL (3.80-5.40); RDW 15.2 % (11.5-15.5); WBC 7.6 k/uL (3.8-10.6)
[2020-08-28 06:52] LABS: African American GFR (CKD) >90 (>60 ml/min/1.73 sqM); Anion Gap 8 mmol/L; Blood Urea Nitrogen 10 mg/dL (7-17); Calcium 9.3 mg/dL (8.4-10.2); Carbon Dioxide 26 mmol/L (22-30); Chloride 103 mmol/L (98-107); Glucose 190 mg/dL (74-99); Non-African American GFR(CKD) >90 (>60 ml/min/1.73 sqM); Sodium 137 mmol/L (137-145)
[2020-08-28 07:01] LABS: Potassium 5.1 mmol/L (3.5-5.1)
[2020-08-28 07:04] VITALS: RESP 16; TEMP 98.7
[2020-08-28] MEDS ORDERED: LIDOCAINE 1% INJ 10MG/ML (20 ML MDV) ONE (07:13)
[2020-08-28] MEDS ORDERED: fentaNYL (PF) 50 MCG/ML 2 ML AMP IV ONE (07:34)
[2020-08-28] MEDS ORDERED: MIDAZOLAM 2 MG/2 ML VIAL IV ONE ×2 (07:34)
[2020-08-28] MEDS ORDERED: fentaNYL (PF) 50 MCG/ML 2 ML AMP ONE (07:35)
[2020-08-28] MEDS ORDERED: LIDOCAINE 1% INJ 10MG/ML (20 ML MDV) SQ ONE (07:37)
[2020-08-28 08:12] LABS: O2 Sat Blood Gas 65.1 %
[2020-08-28 09:54] VITALS: BP 119/69; PULSE 106
--- NOTE | 2020-08-28 10:44 | P.PCN ---
Description of Procedure: PROCEDURES PERFORMED: Right heart catheterization, ultrasound guided right brachial access INDICATION: Increased RVSP, rule out pulmonary hypertension HISTORY: Patient is a 40 year old female with history of severe asthma, obesity, palpitations who has had echoes with increasing RVSP up to 52 and increased episodes of SOB. Therefore recommendation was for right heart catheterization to further clarify. CONSENT:I have discussed the risks, benefits and alternative therapies for the above-mentioned procedure and for both sedation/analgesia as well as necessary blood product administration, if indicated, as they pertain to this patient. The patient has indicated understanding and acceptance of the risks and procedures discussed. PROCEDURE: After the risks, benefits and alternatives of the above mentioned procedure explained in detail with the patient, informed consent was obtained. Patient was taken to the catheterization lab and prepped and draped in usual fashion. 1% lidocaine was used to anesthetize the right brachial. A 6-Swedish sheath was placed in the right brachial vein using modified Seldinger technique and ultrasound guidance. Next a 5Fr Harwood Gregory catheter was advanced into the RA, RV, PA and PCWP positions. The RA and PA oxygen saturations were obtained. The patient tolerated the procedure well. Patient was transported back to the post catheterization holding area in stable condition. Conscious Sedation: Patient was monitored under the direct supervision of vision of myself for conscious sedation using Versed and fentanyl for a total duration of 19 minutes HEMODYNAMICS: Ao: 132/78 RA: 4 mmHg RV: 30/2, RVEDP 4mmHg PA: 25/7 mean 15 mmHg PCWP: 6mmHg RA oxygen saturation: 65% PA oxygen saturation: 65% Pulse ox: 97% Cardiac output by Anival: 6.2 L/min Cardiac index by Anival: 2.7 L/min/m2 FINAL IMPRESSION: 1. Normal right and left sided pressures 2. Appears to be falsely elevated RVSP, possibly related to calculation of RA pressures. No evidence of pulmonary hypertension. 3. Normal cardiac output PLAN: 1. Aggressive risk factor modification per most recent ACC/AHA guidelines. 2. Follow-up in the office in 1-2 weeks.
== END 2020-08-28 09:38 | disposition home or self-care (01) ==
LOC: CATHCVL 06:05
PROVIDERS: ATTEND Internal Medicine
DX: R00.2 Palpitations (principal); R06.02 Shortness of breath; I10 Essential (primary) hypertension; R06.00 Dyspnea, unspecified; E11.9 Type 2 diabetes mellitus without complications; I27.20 Pulmonary hypertension, unspecified; E78.2 Mixed hyperlipidemia; Z20.822 Contact with and (suspected) exposure to COVID-19; E66.9 Obesity, unspecified; Z68.41 Body mass index [BMI] 40.0-44.9, adult; J45.909 Unspecified asthma, uncomplicated; G47.33 Obstructive sleep apnea (adult) (pediatric); Z98.890 Other specified postprocedural states; Z79.4 Long term (current) use of insulin; Z79.51 Long term (current) use of inhaled steroids; Z79.899 Other long term (current) drug therapy; Z88.0 Allergy status to penicillin
CPT/HCPCS: 93451; 80048; 85018; 82810; 85025; 81025; 87635; C1894; C1751; J2250; J2001; J3010

== ENCOUNTER → 2020-11-26 | Outpatient (CLI) | payer MEDICARE, OTHER ==
--- NOTE | 2020-11-27 09:33 | SFUN ---
SLEEP CENTER FOLLOW UP NOTE DATE OF SERVICE: 11/26/2020 40-year-old lady has been followed in Sleep Center for treatment of obstructive sleep apnea-hypopnea syndrome. The patient continued to use her CPAP equipment every night, but she has a message on the screen that her electrical power supplies are not fully connect. I checked her CPAP unit. One of the cords is not in good condition. Usage of the machine is 29/30 nights for more than 4 hours, average 8.2 hours per night. Great compliance. Pressure is 11 cm of water. Leak is slightly high at 30 L/minute. Apnea- hypopnea index is absolutely perfect 0.1 only. [place] Sleepiness Scale today is 4. MEDICATIONS: Metformin 1000 mg twice a day, Lantus 50 units twice a day, Trulicity 1.5 mg once a week, montelukast 10 mg once a day, Symbicort 160/4.5 twice a day, Ventolin up to 4 times a day, albuterol as needed, Lipitor 40 mg once a day, verapamil extended release 240 mg once a day, lisinopril hydrochlorothiazide 20-12.5 mg once a day, lorazepam 0.5 mg twice a day, risperidone 2 mg twice a day, citalopram 40 mg once a day. PHYSICAL EXAMINATION: GENERAL: Patient in no distress. BP 147/57, HR 100, RR 16, height 5 feet 5 inches, weight 266.0, BMI 44.2, temperature 97.7, oxygen saturation at room air 95%. Oropharynx extremely low position of soft palate, Mallampati IV. NECK: Supple, no JVD. Thyroid is not palpable. LUNGS: Clear to percussion and to auscultation. Good air exchange. No wheezing or rhonchi. HEART: S1, S2 regular. No murmurs, gallops, or rubs. ABDOMEN: Obese. Soft and nontender. Bowel sounds are present. No organomegaly appreciated. EXTREMITIES: No clubbing or cyanosis. PUBLIC HEALTH ADVISOR: Awake, alert, and oriented X3. Cranial nerves 2 to 7 intact. There is no fasciculation or atrophy. noted. No focal deficits observed. IMPRESSION: 1. Obstructive sleep apnea-hypopnea syndrome. Patient demonstrated great compliance with treatment benefitting from treatment. 2. Problems with a power cord, needs to be replaced. 3. Obesity. 4. Diabetes mellitus. 5. Anxiety. 6. Asthma. 7. Hypertension. 8. Tachycardia. PLAN: 1. Prescription to replace power supplies. 2. Patient will continue to use PAP equipment every night for the whole night. 3. Sleep hygiene with regular time in bed for at least 7-1/2 to 8 hours. 4. Precautions related to driving. No driving if feeling sleepiness. 5. I will maintain all necessary prescription for PAP supplies including mask, tube, filters. 6. Watching weight. 7. Follow-up visit in 6 months or earlier if patient has any problems. Thank you very much for allowing me to participate in management of your patient. Sincerely, Jose Guadalupe Bucio MD, PhD, FAASM Diplomat of [place] [employer] Sleep Medicine Board of [place] [employer] Cork Grinder of [facility] [place] YARELI / GEOVANI: [id number] /
== END ==
LOC: SLEEP 13:38
PROVIDERS: ATTEND Internal Medicine
DX: G47.33 Obstructive sleep apnea (adult) (pediatric) (principal); E66.9 Obesity, unspecified; E11.9 Type 2 diabetes mellitus without complications; F41.9 Anxiety disorder, unspecified; J45.909 Unspecified asthma, uncomplicated; I10 Essential (primary) hypertension; T85.9XXD Unspecified complication of internal prosthetic device, implant and graft, subsequent encounter; Z79.4 Long term (current) use of insulin; Z79.51 Long term (current) use of inhaled steroids; Z79.899 Other long term (current) drug therapy; Z68.41 Body mass index [BMI] 40.0-44.9, adult; Z88.0 Allergy status to penicillin; Z87.891 Personal history of nicotine dependence

== ENCOUNTER → 2021-05-27 | Outpatient (CLI) | payer MEDICARE ==
--- NOTE | 2021-05-27 13:32 | SFUN ---
SLEEP CENTER FOLLOW UP NOTE DATE OF SERVICE: 05/27/2021 This 41-year-old lady has been followed in Sleep Center for treatment of obstructive sleep apnea-hypopnea syndrome. The patient continues to use her CPAP equipment every night. The electrical cord is partially broken and was not replaced, although a prescription was written during the previous visit. [place] Sleepiness Scale is 3, which is normal today. I checked her CPAP unit. Again, the electrical cord is partially broken. The CPAP unit is more than 5 years old. CPAP pressure is 11 cm of water. Usage is 30/30 nights, 29/30 nights more than 4 hours, average 7.8 hours per night. Leak is 11 L/minute. Apnea-hypopnea index is only 0.3, which is totally normal. MEDICATIONS: 1. Trulicity. 2. NovoLog. 3. Lantus. 4. Symbicort. 5. Ventolin. 6. Montelukast 10 mg once a day. 7. Lorazepam 1 mg half tablet up to three times a day. 8. Verapamil 360 mg once a day. 9. Lipitor 40 mg once a day. 10.Risperidone 2 mg up to twice a day. 11.Citalopram 40 mg once a day. 12.Lisinopril/hydrochlorothiazide 20/12.5 mg once a day. 13.Metformin 1000 mg twice a day. 14.Albuterol as necessary. PHYSICAL EXAMINATION: GENERAL: Pleasant patient in no distress. VITAL SIGNS: BP 131/67, HR 108, RR 16, height 5 feet 5 inches, weight 270, body mass index 44.2, temperature 98.3, oxygen saturation at room air 94%. HEENT: PERRLA, EOMI, evaluation of oropharynx showed tongue protrudes midline. Extremely low position of soft palate; Mallampati IV. NECK: Supple, no JVD. Thyroid is not palpable. LUNGS: Clear to percussion and to auscultation. Good air exchange. No wheezing or rhonchi. HEART: S1, S2 regular. No murmurs, gallops, or rubs. ABDOMEN: Obese. EXTREMITIES: No clubbing or cyanosis. FRONT SERVICES AGENT: Awake, alert, and oriented X3. Cranial nerves 2 to 7 intact. There is no fasciculation or atrophy. noted. No focal deficits observed. IMPRESSION: 1. Obstructive sleep apnea-hypopnea syndrome. Patient demonstrated 100% compliance with treatment. Normal aspiration on CPAP. Benefitting from treatment. 2. Obesity. 3. Diabetes mellitus. 4. Anxiety. 5. Asthma. 6. Hypertension. 7. Tachycardia. PLAN: 1. To replace power cord immediately. 2. Patient will continue to use PAP equipment every night for the whole night. 3. Sleep hygiene with regular time in bed for at least 7-1/2 to 8 hours. 4. Precautions related to driving. No driving if feeling sleepiness. 5. I will maintain all necessary prescription for PAP supplies including mask, tube, filters. 6. Watching weight. 7. Follow-up visit in 6 months or earlier if patient has any problems. Thank you very much for allowing me to participate in the management of your patient. Sincerely, Jose Guadalupe Bucio MD, PhD, FAASM Diplomat of [place] [employer] Sleep Medicine Board of [place] [employer] Transit Clerk of [facility] [place] MMODL / LAWRENCEN: [id number] /
== END ==
LOC: SLEEP 10:18
PROVIDERS: ATTEND Internal Medicine
DX: G47.33 Obstructive sleep apnea (adult) (pediatric) (principal); E66.9 Obesity, unspecified; E11.9 Type 2 diabetes mellitus without complications; F41.9 Anxiety disorder, unspecified; J45.909 Unspecified asthma, uncomplicated; I10 Essential (primary) hypertension; Z68.41 Body mass index [BMI] 40.0-44.9, adult; Z79.4 Long term (current) use of insulin; Z79.51 Long term (current) use of inhaled steroids; Z79.84 Long term (current) use of oral hypoglycemic drugs; Z88.0 Allergy status to penicillin

== ENCOUNTER → 2021-07-07 | Outpatient (CLI) | payer MEDICARE ==
[2021-07-07 12:50] VITALS: BP 136/68; PULSE 109; RESP 12; TEMP 98.1
--- NOTE | 2021-07-07 13:18 | P.HPOB ---
History of Present Illness H&P Date: 07/07/21 Chief Complaint: The patient is here for her routine gynecologic exam. This is a 41-year-old with an LMP of 06/16/2021. The patient uses condoms and spermicide for control. She is declining any other method for control at this time. She is without gynecologic complaints. She states that menstrual periods are regular every month. Review of Systems The patient has gained 3 pounds over the last year. She denies respiratory, cardiac, or G.I. problems. 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 PAST [employer] WORKER HISTORY: She has no history of STDs. History of Any Multi-Drug Resistant Organisms: None Reported Past Surgical History: Appendectomy, Section Additional Past Surgical History / Comment(s): bronchioplasty, moles removed Past Anesthesia/Blood Transfusion Reactions: No Reported Reaction Past Psychological History: Anxiety, Depression Additional Psychological History / Comment(s): OCD. Smoking Status: Former smoker Past Alcohol Use History: None Reported Additional Past Alcohol Use History / Comment(s): Quit smoking in the . Past Drug Use History: None Reported Additional History: She has been since 2001 handed does not work outside of the home. - Past Family History Mother Family Medical History: Cancer Additional Family Medical History / Comment(s): Skin cancer. Maternal grandmother Family Medical History: Cancer Additional Family Medical History / Comment(s): Breast, bone and skin cancer. The patient states her grandmother tested positive for a breast cancer gene. The patient's mother tested negative. Medications and Allergies Home Medications Medication Instructions Recorded Confirmed Type Albuterol Nebulized [Ventolin 2.5 mg INHALATION Q4H PRN 08/06/13 07/02/21 History Nebulized] Albuterol Sulfate [Ventolin HFA] 2 puff INHALATION Q4H PRN 08/06/13 07/02/21 History Budesonide/Formoterol Fumarate 2 puff INHALATION BID 08/06/13 07/02/21 History [Symbicort 160-4.5 Mcg Inhaler] Citalopram Hydrobromide [CeleXA] 40 mg PO HS 08/06/13 07/02/21 History Lisinopril-Hctz 20-12.5 mg 1 tab PO HS 08/06/13 07/02/21 History [Zestoretic 20-12.5] Omalizumab [Xolair] 300 mg SQ Q28D 08/06/13 07/02/21 History metFORMIN HCL [Glucophage] 1,000 mg PO BID 08/06/13 07/02/21 History LORazepam [Ativan] 0.5 mg PO BID PRN 12/10/13 07/02/21 History Atorvastatin [Lipitor] 40 mg PO DAILY 03/09/16 07/02/21 History Verapamil HCl [Verapamil ER] 240 mg PO HS 03/09/16 07/02/21 History risperiDONE [RisperDAL] 2 mg PO BID 04/05/16 07/02/21 History Insulin Glargine,Hum.rec.anlog 50 unit SQ BID 04/01/20 07/02/21 History [Lantus Solostar Pen] Dulaglutide [Trulicity] 1.5 mg SQ MO 08/22/20 07/02/21 History Montelukast [Singulair] 10 mg PO DAILY 08/22/20 07/02/21 History Dapagliflozin Propanediol [Farxiga] 1 tab PO DAILY 07/02/21 07/02/21 History Allergies Allergy/AdvReac Type Severity Reaction Status Date / Time Penicillins Allergy Rash/Hives Verified 07/07/21 12:42 Exam Vital Signs Temp Pulse Resp BP Pulse Ox 07/07/21 12:45 98.1 F 109 H 12 136/68 95 Intake and Output 07/06/21 07/07/21 07/07/21 22:59 06:59 14:59 Other: Weight 120.202 kg Height 5 feet 5 inches, weight 265 pounds, BMI 44.1. This is a well-developed well-nourished heavyset white female who is alert and oriented times 3 in no acute distress. HEENT: Within normal limits. NECK: Supple without mass or thyromegaly. CHEST AND LUNGS: Clear to auscultation. HEART: Regular rate and rhythm. BREASTS: Are without mass or discharge. AXILLARY EXAM: Negative for adenopathy. BACK: Negative for CVA tenderness. ABDOMEN: Soft, obese, nontender, without palpable masses. PELVIC EXAM: Normal external genitalia. Cervix and vagina appear normal. There is no unusual discharge. There is no evidence of prolapse. The uterus is midposition, nongravid size and nontender. There are no palpable adnexal masses or tenderness. Bimanual examination is somewhat limited secondary to her size. RECTAL EXAM: negative for mass or tenderness and is negative for occult blood. EXTREMITIES: Nontender. IMPRESSION: 1. 41-year-old female using condoms and spermicide for control, with normal gynecologic exam. 2. Obesity. PLAN: 1. Pap smear was deferred since she had a normal Pap smear cotest on 04/01/2020. 2. Self breast awareness was discussed with the patient. We have also discussed symptoms associated with inflammatory breast cancer. 3. Baseline screening mammogram is recommended. The order slip was given to the patient for this. 4. Osteoporosis prevention was discussed. I have stressed the importance of adequate calcium, vitamin D and regular exercise. Recommended amounts of calcium and vitamin D were also discussed. 5. She has completed her Covid vaccination series and did receive a booster. 6. She was advised to return in one year for her annual well woman exam.
== END ==
LOC: WWCWWP 12:25
PROVIDERS: ATTEND Obstetrics & Gynecology
DX: Z01.419 Encounter for gynecological examination (general) (routine) without abnormal findings (principal); J45.909 Unspecified asthma, uncomplicated; E11.9 Type 2 diabetes mellitus without complications; E66.9 Obesity, unspecified; E78.5 Hyperlipidemia, unspecified; I10 Essential (primary) hypertension; F41.9 Anxiety disorder, unspecified; F32.A Depression, unspecified; Z87.891 Personal history of nicotine dependence; Z79.51 Long term (current) use of inhaled steroids; Z79.84 Long term (current) use of oral hypoglycemic drugs; Z79.4 Long term (current) use of insulin; Z88.0 Allergy status to penicillin; Z68.41 Body mass index [BMI] 40.0-44.9, adult

== ENCOUNTER → 2021-07-23 | Outpatient (CLI) | payer MEDICARE ==
--- NOTE | 2021-07-27 08:21 | MM ---
Reason for exam: screening (asymptomatic). Baseline mammogram. History: Family history of breast cancer in maternal grandmother. Physical Findings: A clinical breast exam by your physician is recommended on an annual basis and results should be correlated with mammographic findings. MG 3D Screening Mammo W/Cad Bilateral CC and MLO view(s) were taken. There are scattered fibroglandular densities. There is no discrete abnormality. ASSESSMENT: Benign, BI-RAD 2 RECOMMENDATION: Routine screening mammogram of both breasts in 1 year.
== END | disposition home or self-care (01) ==
LOC: RADMAMWWP 10:04
PROVIDERS: ATTEND Obstetrics & Gynecology
DX: Z12.31 Encounter for screening mammogram for malignant neoplasm of breast (principal); Z80.3 Family history of malignant neoplasm of breast
CPT/HCPCS: 77063; 77067

== ENCOUNTER → 2021-07-30 | Outpatient (CLI) | payer MEDICARE ==
[2021-07-30 15:16] LABS: ALT 27 U/L (8-44); AST 15 U/L (13-35); Chol/HDL Ratio 5.02 Ratio; LDL Cholesterol,Calculated 93.3 mg/dL (0.0-131.0)
== END | disposition home or self-care (01) ==
LOC: LABWHC1 08:07
PROVIDERS: ATTEND Internal Medicine
DX: E78.2 Mixed hyperlipidemia (principal)
CPT/HCPCS: 36415; 80061; 84450; 84460

== ENCOUNTER 2021-08-25 21:13 | Emergency (ER) | payer MEDICARE ==
[2021-08-25 22:02] VITALS: TEMP 98.5
--- NOTE | 2021-08-26 00:04 | ED ---
General Adult HPI - General Chief complaint: Recheck/Abnormal Lab/Rx Stated complaint: Hypoglycemia Time Seen by Provider: 08/25/21 23:29 Source: patient, RN notes reviewed Mode of arrival: ambulatory Limitations: no limitations - History of Present Illness Initial comments: 41-year-old diabetic female presents rahat stating that she took her normal dosages of diabetes medications including her long acting insulin this morning and has been having episodes of low blood sugar all day. Patient states when the sugar drops low, as low as "40. "She gets shaky and a little diaphoretic. Patient has no complaints currently. Patient is on quadruple therapy for diabetes. Patient does not believe she overdosed on her medications. Patient does state that her trulicity dose was increased last week. No headache, no fever or chills, no changes in vision or hearing, no sore throat or difficulty with speech, no neck pain, no chest pain or shortness of breath, no abdominal pain, no nausea or vomiting, no changes in urination or bowel movements, no numbness or tingling, no extremity pain, no skin rashes or lesions. - Related Data Home Medications Medication Instructions Recorded Confirmed Albuterol Nebulized [Ventolin 2.5 mg INHALATION Q4H PRN 08/06/13 07/30/21 Nebulized] Albuterol Sulfate [Ventolin HFA] 2 puff INHALATION Q4H PRN 08/06/13 07/30/21 Budesonide/Formoterol Fumarate 2 puff INHALATION BID 08/06/13 07/30/21 [Symbicort 160-4.5 Mcg Inhaler] Citalopram Hydrobromide [CeleXA] 40 mg PO HS 08/06/13 07/30/21 Lisinopril-Hctz 20-12.5 mg 1 tab PO HS 08/06/13 07/30/21 [Zestoretic 20-12.5] Omalizumab [Xolair] 300 mg SQ Q28D 08/06/13 07/30/21 metFORMIN HCL [Glucophage] 1,000 mg PO BID 08/06/13 07/30/21 LORazepam [Ativan] 0.5 mg PO BID PRN 12/10/13 07/30/21 Atorvastatin [Lipitor] 40 mg PO DAILY 03/09/16 07/30/21 Verapamil HCl [Verapamil ER] 240 mg PO HS 03/09/16 07/30/21 risperiDONE [RisperDAL] 2 mg PO BID 04/05/16 07/30/21 Insulin Glargine,Hum.rec.anlog 50 unit SQ BID 04/01/20 07/30/21 [Lantus Solostar Pen] Dulaglutide [Trulicity] 1.5 mg SQ WEEKLY 08/22/20 07/30/21 Montelukast [Singulair] 10 mg PO DAILY 08/22/20 07/30/21 Dapagliflozin Propanediol [Farxiga] 1 tab PO DAILY 07/02/21 07/30/21 Insulin Aspart [NovoLOG Flexpen] 35 units SQ TID 07/07/21 07/30/21 Allergies Allergy/AdvReac Type Severity Reaction Status Date / Time Penicillins Allergy Rash/Hives Verified 07/30/21 07:56 Review of Systems ROS Statement: Those systems with pertinent positive or pertinent negative responses have been documented in the HPI. ROS Other: All systems not noted in ROS Statement are negative. 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 History of Any Multi-Drug Resistant Organisms: None Reported Past Surgical History: Appendectomy, Section Additional Past Surgical History / Comment(s): bronchioplasty, moles removed Past Anesthesia/Blood Transfusion Reactions: No Reported Reaction Past Psychological History: Anxiety, Depression Smoking Status: Former smoker - Past Family History Mother Family Medical History: Cancer Additional Family Medical History / Comment(s): Skin cancer. Maternal grandmother Family Medical History: Cancer Additional Family Medical History / Comment(s): Breast, bone and skin cancer. The patient states her grandmother tested positive for a breast cancer gene. The patient's mother tested negative. General Exam Limitations: no limitations General appearance: alert, in no apparent distress Head exam: Present: atraumatic, normocephalic, normal inspection Eye exam: Present: normal appearance, PERRL, EOMI. Absent: scleral icterus, conjunctival injection, periorbital swelling ENT exam: Present: normal exam, mucous membranes moist Neck exam: Present: normal inspection. Absent: tenderness, meningismus, lymphadenopathy Respiratory exam: Present: normal lung sounds bilaterally. Absent: respiratory distress, wheezes, rales, rhonchi, stridor Cardiovascular Exam: Present: regular rate, normal rhythm, normal heart sounds. Absent: systolic murmur, diastolic murmur, rubs, gallop, clicks GI/Abdominal exam: Present: soft, normal bowel sounds. Absent: distended, tenderness, guarding, rebound, rigid Extremities exam: Present: normal inspection, full ROM, normal capillary refill. Absent: tenderness, pedal edema, joint swelling, calf tenderness Back exam: Present: normal inspection Neurological exam: Present: alert, oriented X3, CN II-XII intact Psychiatric exam: Present: normal affect, normal mood Skin exam: Present: warm, dry, intact, normal color. Absent: rash Course Vital Signs 08/25/21 08/26/21 21:57 01:52 Temperature 98.5 F Pulse Rate 110 H 112 H Respiratory 16 18 Rate Blood Pressure 150/85 139/86 O2 Sat by Pulse 98 95 Oximetry - Reevaluation(s) Reevaluation #1: 08/26/21 02:40 Medical record is reviewed Symptoms are improved here in the emergency department Patient is informed of results and questions answered Patient in no distress Patient's blood sugar is holding stable. Patient asymptomatic Medical Decision Making - Medical Decision Making Patient's blood glucose remained stable here in the emergency department. She had no episodes of hypoglycemia. Patient was reevaluated prior to discharge and is stable. No distress. Vital signs stable, patient afebrile. Discussed all findings with the patient. We'll hold the patient's Farxiga until she contacts her prescribing physician tomorrow. I also gave the patient the name of the local casting operator helper. The case was discussed in detail with ED attending physician. Presentation, findings, treatment plan discussed in detail. Patient was told to return to the ER for any signs or symptoms worsen. Told to return immediately if any other problems arise. All questions answered. Treatment plan discussed. Patient in agreement Every effort has been made to ensure accuracy of this dictation. However, due to the limitations of electronic medical records and dictation devices, errors in charting still occur. Layout Artist Dr. Salinas - Lab Data Result diagrams: 08/26/21 00:00 08/26/21 00:00 Lab Results 08/26/21 08/26/21 08/26/21 Range/Units 00:00 00:00 00:00 WBC 9.6 (3.8-10.6) k/uL RBC 4.45 (3.80-5.40) m/uL Hgb 12.2 (11.4-16.0) gm/dL Hct 37.9 (34.0-46.0) % MCV 85.1 (80.0-100.0) fL MCH 27.4 (25.0-35.0) pg MCHC 32.2 (31.0-37.0) g/dL RDW 14.9 (11.5-15.5) % Plt Count 451 H (150-450) k/uL MPV 6.8 Neutrophils % 64 % Lymphocytes % 27 % Monocytes % 5 % Eosinophils % 1 % Basophils % 1 % Neutrophils # 6.1 (1.3-7.7) k/uL Lymphocytes # 2.6 (1.0-4.8) k/uL Monocytes # 0.5 (0-1.0) k/uL Eosinophils # 0.1 (0-0.7) k/uL Basophils # 0.1 (0-0.2) k/uL Sodium (137-145) mmol/L Potassium (3.5-5.1) mmol/L Chloride (98-107) mmol/L Carbon Dioxide (22-30) mmol/L Anion Gap mmol/L BUN (7-17) mg/dL Creatinine (0.52-1.04) mg/dL Est GFR (CKD-EPI)AfAm (>60 ml/min/1.73 sqM) Est GFR (CKD-EPI)NonAf (>60 ml/min/1.73 sqM) Glucose (74-99) mg/dL POC Glucose (mg/dL) (75-99) mg/dL POC Glu Gas Manager ID Calcium (8.4-10.2) mg/dL Total Bilirubin (0.2-1.3) mg/dL AST (14-36) U/L ALT (4-34) U/L Alkaline Phosphatase (38-126) U/L Total Protein (6.3-8.2) g/dL Albumin (3.5-5.0) g/dL Urine Color Light Yellow Urine Appearance Clear (Clear) Urine pH 5.5 (5.0-8.0) Ur Specific [place] 1.016 (1.001-1.035) Urine Protein Negative (Negative) Urine Glucose (UA) 4+ H (Negative) Urine Ketones Negative (Negative) Urine Blood Negative (Negative) Urine Nitrite Negative (Negative) Urine Bilirubin Negative (Negative) Urine Urobilinogen <2.0 (<2.0) mg/dL Ur Leukocyte Esterase Negative (Negative) Urine HCG, Qual Not Detected (Not Detectd) 08/26/21 08/26/21 Range/Units 00:00 01:55 WBC (3.8-10.6) k/uL RBC (3.80-5.40) m/uL Hgb (11.4-16.0) gm/dL Hct (34.0-46.0) % MCV (80.0-100.0) fL MCH (25.0-35.0) pg MCHC (31.0-37.0) g/dL RDW (11.5-15.5) % Plt Count (150-450) k/uL MPV Neutrophils % % Lymphocytes % % Monocytes % % Eosinophils % % Basophils % % Neutrophils # (1.3-7.7) k/uL Lymphocytes # (1.0-4.8) k/uL Monocytes # (0-1.0) k/uL Eosinophils # (0-0.7) k/uL Basophils # (0-0.2) k/uL Sodium 138 (137-145) mmol/L Potassium 4.6 (3.5-5.1) mmol/L Chloride 101 (98-107) mmol/L Carbon Dioxide 26 (22-30) mmol/L Anion Gap 11 mmol/L BUN 11 (7-17) mg/dL Creatinine 0.60 (0.52-1.04) mg/dL Est GFR (CKD-EPI)AfAm >90 (>60 ml/min/1.73 sqM) Est GFR (CKD-EPI)NonAf >90 (>60 ml/min/1.73 sqM) Glucose 118 H (74-99) mg/dL POC Glucose (mg/dL) 129 H (75-99) mg/dL POC Glu Gas Manager ID Omayra Gaona Calcium 9.8 (8.4-10.2) mg/dL Total Bilirubin 0.3 (0.2-1.3) mg/dL AST 17 (14-36) U/L ALT 22 (4-34) U/L Alkaline Phosphatase 62 (38-126) U/L Total Protein 7.7 (6.3-8.2) g/dL Albumin 4.6 (3.5-5.0) g/dL Urine Color Urine Appearance (Clear) Urine pH (5.0-8.0) Ur Specific [place] (1.001-1.035) Urine Protein (Negative) Urine Glucose (UA) (Negative) Urine Ketones (Negative) Urine Blood (Negative) Urine Nitrite (Negative) Urine Bilirubin (Negative) Urine Urobilinogen (<2.0) mg/dL Ur Leukocyte Esterase (Negative) Urine HCG, Qual (Not Detectd) Disposition Clinical Impression: Multiple episodes of hypoglycemia Disposition: HOME SELF-CARE Condition: Good Instructions (If sedation given, give patient instructions): Hypoglycemia in a Person with Diabetes (ED) Additional Instructions: Hold the Farxiga and contact Dr. Law in the morning for further guidance on medication management. You may want to consider follow-up with an endocrinologi st. Follow-up with your regular physician as directed. Return to the ER immediately if any symptoms worsen, new symptoms arise, or any other problems develop. Is patient prescribed a controlled substance at d/c from ED?: No Referrals: Dima Law MD [Primary Care Provider] - 08/26/21 8:00 am Katia Castillo MD [STAFF PHYSICIAN] - As Soon As Possible Time of Disposition: 02:42
[2021-08-26 00:23] LABS: Appearance,Urine Clear (Clear); Bilirubin,Urine Negative (Negative); Blood,Urine Negative (Negative); Color,Urine Light Yellow; Glucose,Urine (UA) 4+ (Negative); Ketones,Urine Negative (Negative); Leukocyte Esterase,Urine Negative (Negative); Nitrite,Urine Negative (Negative); PH, Urine 5.5 (5.0-8.0); Protein,Urine Negative (Negative); Specific Gravity,Urine 1.016 (1.001-1.035); Urobilinogen,Urine <2.0 mg/dL (<2.0)
[2021-08-26 00:30] LABS: Basophils # (A) 0.1 k/uL (0-0.2); Basophils % (A) 1 %; Eosinophils # (A) 0.1 k/uL (0-0.7); Eosinophils % (A) 1 %; HCT 37.9 % (34.0-46.0); HGB 12.2 gm/dL (11.4-16.0); Lymphocytes # (A) 2.6 k/uL (1.0-4.8); Lymphocytes % (A) 27 %; MCH 27.4 pg (25.0-35.0); MCHC 32.2 g/dL (31.0-37.0); MCV 85.1 fL (80.0-100.0); Mean Platelet Volume 6.8; Monocytes # (A) 0.5 k/uL (0-1.0); Monocytes % (A) 5 %; Neutrophils # (A) 6.1 k/uL (1.3-7.7); Neutrophils % (A) 64 %; Platelet Count 451 k/uL (150-450); RBC 4.45 m/uL (3.80-5.40); RDW 14.9 % (11.5-15.5); WBC 9.6 k/uL (3.8-10.6)
[2021-08-26 00:35] LABS: Potassium 4.6 mmol/L (3.5-5.1)
[2021-08-26 00:36] LABS: ALT 22 U/L (4-34); AST 17 U/L (14-36); African American GFR (CKD) >90 (>60 ml/min/1.73 sqM); Albumin 4.6 g/dL (3.5-5.0); Alkaline Phosphatase 62 U/L (38-126); Anion Gap 11 mmol/L; Blood Urea Nitrogen 11 mg/dL (7-17); Calcium 9.8 mg/dL (8.4-10.2); Carbon Dioxide 26 mmol/L (22-30); Chloride 101 mmol/L (98-107); Glucose 118 mg/dL (74-99); Non-African American GFR(CKD) >90 (>60 ml/min/1.73 sqM); Sodium 138 mmol/L (137-145); Total Bilirubin 0.3 mg/dL (0.2-1.3); Total Protein 7.7 g/dL (6.3-8.2)
[2021-08-26 01:54] VITALS: BP 139/86; PULSE 112; RESP 18
[2021-08-26 01:57] LABS: Glucose,Whole Blood 129 mg/dL (75-99)
== END 2021-08-26 02:55 | disposition home or self-care (01) ==
LOC: EC 21:13
DX: E11.649 Type 2 diabetes mellitus with hypoglycemia without coma (principal); I10 Essential (primary) hypertension; J45.909 Unspecified asthma, uncomplicated; Z88.0 Allergy status to penicillin; Z79.899 Other long term (current) drug therapy; Z79.84 Long term (current) use of oral hypoglycemic drugs; Z79.51 Long term (current) use of inhaled steroids; Z87.891 Personal history of nicotine dependence; Z79.4 Long term (current) use of insulin
CPT/HCPCS: 36415; 80053; 81003; 81025; 85025; 99284

== ENCOUNTER → 2022-01-20 | Outpatient (CLI) | payer MEDICARE ==
--- NOTE | 2022-01-20 17:29 | P.PN ---
Subjective DATE: 01/20/2022 FOLLOW UP VISIT. Patient with obstructive sleep apnea hypopnea syndrome return to sleep center for follow-up visit. Information from previous visit have been reviewed. Patient is using PAP equipment every night for the whole night, getting PAP supplies in time. The patient does not have significant problems with the mask, PAP unit and humidification. [place] sleepiness scale is normal 3. I checked information from PAP unit. PAP unit pressure 11 cm H2O. Usage is 100 % for more then 4 hours, average 7.4 hours per night. Leak is 8 l/m, which is in acceptable range. Apnea Hypopnea Index is 0.1, which is normal. MEDICATIONS:1. Insulin 2. Symbicort 3. Ventolin 4. Lorazepam 1 mg half tablet 3 times a day 5. Verapamil 360 mg once a day 6. Lipitor 40 mg once a day 7. Citalopram 40 mg once a day 8. Metformin 1000 mg twice a day 9. Lisinoprilhydrochlorothiazide 2012.5 mg once a day During physical exam: GENERAL: A pleasant patient without any distress. VITAL SIGNS: BP 114/59, HR 108, RR 15, weight 242, height 5 foot 5 inches, body mass index 40.2, temperature 98.8, oxygen saturation at room air 94 % . HEENT: PERRLA, EOMI.low position of soft palate, [place] 4 . NECK: Supple. No JVD. LUNGS: Clear to percussion and to auscultation. Good air exchange. No wheezing or rhonchi. HEART: S1, S2 regular. ABDOMEN: Soft and nontender. Obese EXTREMITIES: No clubbing or cyanosis. CERTIFIED LOW VISION THERAPIST: Awake, alert, and oriented x3. No focal deficit. Impressions: 1. Obstructive sleep apnea-hypopnea syndrome. Patient demonstrated great compliance with treatment, benefiting from treatment. 2. Diabetes mellitus. 3. Hypertension. 4. Obesity. 5. Anxiety. 6. Tachycardia. 7. Asthma. Plan: 1. Continue using PAP equipment every night for the whole night. 2. To change air filter at least 1-2 times per month. 3. PAP unit should stay lower then position of the head. 4. Advised patient to remove all remaining water from humidifier canister daily and make it dry after each usage. Refill canister with fresh distilled water before each usage. 5. Sleep hygiene with regular time in bed for at least 8 hours. 6. Precautions related to driving. No driving if feel any sleepiness. 7. I will maintain prescription for PAP supplies including mask, tube, filters. 8. Follow up visit in 6 months or earlier if patient has any problems. 9. Watching and losing weight. Thank you very much for allowing me to participate in the management of your patient. Jose Guadalupe Bucio MD, PhD, FAASM. Diplomat of [place] Board of Sleep Medicine, Sleep Medicine Board by [place] Board of Internal Medicine Senior Formulation Scientist of [facility] [place]
== END | disposition home or self-care (01) ==
LOC: SLEEP 15:12
PROVIDERS: ATTEND Internal Medicine
DX: G47.33 Obstructive sleep apnea (adult) (pediatric) (principal); E11.9 Type 2 diabetes mellitus without complications; I10 Essential (primary) hypertension; F41.9 Anxiety disorder, unspecified; R00.0 Tachycardia, unspecified; J45.909 Unspecified asthma, uncomplicated
CPT/HCPCS: 99212

== ENCOUNTER → 2022-04-16 | Outpatient (CLI) | payer MEDICARE, OTHER ==
[2022-04-16 18:12] LABS: HCT 37.7 % (37.2-46.3); HGB 11.9 g/dL (12.0-15.0); MCH 26.4 pg (27.0-32.0); MCHC 31.6 g/dL (32.0-37.0); MCV 83.6 fL (80.0-97.0); Mean Platelet Volume 9.4 fL (9.5-12.2); NRBC Per 100 WBC 0 /100 WBCS (0.0-0.0); Platelet Count 430 X 10*3/uL (140-440); RBC 4.51 X 10*6/uL (4.10-5.20); RDW 14.3 % (11.5-14.5); WBC 10.31 X 10*3/uL (4.50-10.00)
[2022-04-16 18:25] LABS: African American GFR (CKD) 131.2 (60.0-200.0); Anion Gap 11.7 mmol/L (10.00-18.00); Blood Urea Nitrogen 10.6 mg/dL (9.0-27.0); Carbon Dioxide 23.3 mmol/L (20.0-27.5); Non-African American GFR(CKD) 113.2 (60.0-200.0)
== END | disposition home or self-care (01) ==
LOC: LABPAT 11:31
PROVIDERS: ATTEND Internal Medicine
DX: Z01.812 Encounter for preprocedural laboratory examination (principal); R06.02 Shortness of breath
CPT/HCPCS: 80051; 82565; 84520; 85027

== ENCOUNTER 2022-04-23 10:54 | Day surgery (SDC) | payer MEDICARE, OTHER ==
[~2022-04-23 10:54] MED LIST changes: +HEPARIN SODIUM,PORCINE 10,000 UNIT in SODIUM CHLORIDE 0.9% 1,000 ML IRRIGATION PRN; +HEPARIN SODIUM,PORCINE 2,500 UNIT in SODIUM CHLORIDE 0.9% 250 ML IRRIGATION PRN; -SODIUM CHLORIDE 0.9% 1,000 ML in EMPTY BAG 1 BAG IV ONE; +SODIUM CHLORIDE 0.9% 1,000 ML in EMPTY BAG 1 BAG IV SCH
[2022-04-23] MEDS ORDERED: SODIUM CHLORIDE 0.9% 1,000 ML IV ONE (11:10)
[2022-04-23 11:18] VITALS: TEMP 97.9
[2022-04-23 11:31] LABS: Glucose,Whole Blood 152 mg/dL (70-110)
[2022-04-23] MEDS ORDERED: VERAPAMIL 2.5 MG/ML 2 ML AMP ONE (12:01)
[2022-04-23] MEDS ORDERED: fentaNYL (PF) 50 MCG/ML 2 ML AMP ONE (12:03)
[2022-04-23] MEDS ORDERED: fentaNYL (PF) 50 MCG/ML 2 ML AMP IV ONE (12:15)
[2022-04-23] MEDS ORDERED: MIDAZOLAM 2 MG/2 ML VIAL IV ONE (12:15)
[2022-04-23] MEDS ORDERED: LIDOCAINE 1% INJ 10MG/ML (5 ML VIAL-PF) SQ ONE (12:16)
[2022-04-23] MEDS ORDERED: VERAPAMIL SYRINGE (5 MG/10 ML) INTRAARTER ONE (12:28)
[2022-04-23] MEDS ORDERED: HEPARIN SODIUM 1,000 UN/ML (10ML VL) IV ONE (12:28)
[2022-04-23] MEDS ORDERED: IOPAMIDOL-370 100ML BTL INJ ONE (12:33)
--- NOTE | 2022-04-23 12:39 | P.CARDCATH ---
Description of Procedure: PROCEDURES PERFORMED: Left heart catheterization, bilateral coronary angiography INDICATION: abnormal stress test CONSENT:I have discussed the risks, benefits and alternative therapies for the above-mentioned procedure and for both sedation/analgesia as well as necessary blood product administration, if indicated, as they pertain to this patient. The patient has indicated understanding and acceptance of the risks and procedures discussed. PROCEDURE: After the risks, benefits and alternatives of the above mentioned procedure explained in detail with the patient, informed consent was obtained. Patient was taken to the catheterization lab and prepped and draped in usual fashion. 1% lidocaine was used to anesthetize the right radial artery. A 6- [place] sheath was placed in the right radial artery using modified Seldinger technique. Left coronary angiography was performed with a 5-[place] JL 3.5 catheter and right coronary angiography was performed with a 5-[place] JR5 catheter in various views. A 5-[place] FR5 catheter was inserted into the left ventricle and pressure measurements were obtained. The right radial sheath was removed and a TR band was placed with hemostasis achieved. The patient tolerated the procedure well. Patient was transported back to the post catheterization holding area in stable condition. Conscious Sedation: Patient was monitored under the direct supervision of vision of myself for conscious sedation using Versed and fentanyl for a total duration of 19 minutes HEMODYNAMICS: Aorta: 92/45 LV: 102/1, LVDP for SELECTIVE CORONARY ARTERIOGRAPHY: LEFT MAIN: The left main is a large caliber vessel which bifurcates into the LAD and circumflex. There is no significant stenosis. LEFT ANTERIOR DESCENDING CORONARY ARTERY: LAD is a large caliber vessel which wraps around to the apex. There is no significant stenosis. LEFT CIRCUMFLEX CORONARY ARTERY: Left circumflex is a moderate caliber vessel without significant stenosis. RIGHT CORONARY ARTERY: The right coronary artery is a large caliber vessel which gives off a PDA and PLV branch and is the dominant vessel. There are mild l uminal irregularities of the RCA up to 10% and otherwise normal. FINAL IMPRESSION: 1. Relatively normal coronary arteries as described above with only mild luminal irregularities of the mid RCA. 2. Low nrmal left sided filling pressures PLAN: 1. Aggressive risk factor modification per most recent ACC/AHA guidelines. 2. Follow-up in the office in 1-2 weeks.
[2022-04-23 15:49] VITALS: BP 118/72; PULSE 106; RESP 16
== END 2022-04-23 15:49 | disposition home or self-care (01) ==
LOC: CATHCVL 10:54
PROVIDERS: ATTEND Internal Medicine
DX: R00.0 Tachycardia, unspecified (principal); R00.2 Palpitations; I10 Essential (primary) hypertension; E78.5 Hyperlipidemia, unspecified; E11.9 Type 2 diabetes mellitus without complications; J45.909 Unspecified asthma, uncomplicated; G47.33 Obstructive sleep apnea (adult) (pediatric); I27.20 Pulmonary hypertension, unspecified; Z88.0 Allergy status to penicillin; Z79.899 Other long term (current) drug therapy
CPT/HCPCS: 93458; 81025; C1769; C1894; J2250; J2001; J3010; J1644; Q9967

== ENCOUNTER → 2022-07-28 | Outpatient (CLI) | payer MEDICARE, OTHER ==
[2022-07-28 10:59] VITALS: BP 105/63; PULSE 90; RESP 16; TEMP 97.8
--- NOTE | 2022-07-28 12:03 | P.HPOB ---
History of Present Illness H&P Date: 07/28/22 Chief Complaint: The patient is here for her routine gynecologic exam and ma mmogram. This is a 42-year-old with an LMP of 07/19/2022. The patient uses condoms and spermicide for control. She states she has completed her childbearing. She has noticed slight vaginal pruritus without odor. She denies any significant discharge. She is otherwise without gynecologic complaints. Review of Systems She has lost about 30 pounds over the past year. This has been intentional and she is done this with diet and exercise. She denies respiratory, cardiac, or GI problems. 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 History of Any Multi-Drug Resistant Organisms: None Reported Past Surgical History: Appendectomy, Section Additional Past Surgical History / Comment(s): bronchioplasty, moles removed Past Anesthesia/Blood Transfusion Reactions: No Reported Reaction Past Psychological History: Anxiety, Depression Additional Psychological History / Comment(s): OCD. Smoking Status: Former smoker Past Alcohol Use History: None Reported Additional Past Alcohol Use History / Comment(s): Quit smoking in the . Past Drug Use History: None Reported Additional History: She has been since 2001. She does not work outside of the home. - Past Family History Mother Family Medical History: Cancer Additional Family Medical History / Comment(s): Skin cancer. Maternal grandmother Family Medical History: Cancer Additional Family Medical History / Comment(s): Breast, bone and skin cancer. The patient states her grandmother tested positive for a breast cancer gene. The patient's mother tested negative. Medications and Allergies Home Medications Medication Instructions Recorded Confirmed Type Albuterol Nebulized [Ventolin 2.5 mg INHALATION Q4H PRN 08/06/13 07/28/22 History Nebulized] Albuterol Sulfate [Ventolin HFA] 2 puff INHALATION Q4H PRN 08/06/13 07/28/22 History Budesonide/Formoterol Fumarate 2 puff INHALATION BID 08/06/13 07/28/22 History [Symbicort 160-4.5 Mcg Inhaler] Citalopram Hydrobromide [CeleXA] 40 mg PO HS 08/06/13 07/28/22 History Lisinopril-Hctz 20-12.5 mg 1 tab PO HS 08/06/13 07/28/22 History [Zestoretic 20-12.5] Omalizumab [Xolair] 300 mg SQ Q28D 08/06/13 07/28/22 History metFORMIN HCL [Glucophage] 1,000 mg PO BID 08/06/13 07/28/22 History LORazepam [Ativan] 0.5 mg PO BID PRN 12/10/13 07/28/22 History Atorvastatin [Lipitor] 40 mg PO HS 03/09/16 07/28/22 History Verapamil HCl [Verapamil ER] 360 mg PO HS 03/09/16 07/28/22 History risperiDONE [RisperDAL] 2 mg PO QAM 04/05/16 07/28/22 History Insulin Glargine,Hum.rec.anlog 45 unit SQ BID 04/01/20 07/28/22 History [Lantus Solostar Pen] Montelukast [Singulair] 10 mg PO HS 08/22/20 07/28/22 History Dapagliflozin Propanediol [Farxiga] 10 mg PO DAILY 07/02/21 07/28/22 History Insulin Aspart [NovoLOG Flexpen] 15 units SQ AC-TID 07/07/21 07/28/22 History Ezetimibe [Zetia] 10 mg PO DAILY 02/05/22 07/28/22 History Tirzepatide [Mounjaro] 7.5 mg SQ WEEKLY 04/02/22 07/28/22 History Aspirin 81 mg PO DAILY 04/20/22 07/28/22 History Ammonium Lactate Cream [Lac-Hydrin 1 applic TOPICAL DAILY 07/28/22 07/28/22 History 12% Cream] Allergies Allergy/AdvReac Type Severity Reaction Status Date / Time Penicillins Allergy Rash/Hives Verified 07/28/22 10:56 Exam Vital Signs Temp Pulse Resp BP Pulse Ox 07/28/22 10:57 97.8 F 90 16 105/63 95 Intake and Output 07/27/22 07/28/22 07/28/22 22:59 06:59 14:59 Other: Weight 106.594 kg Height 5 feet 5 inches, weight 235 pounds, BMI 39.1. This is a well-developed well-nourished heavyset female who is alert and oriented times 3 in no acute distress. HEENT: Within normal limits. NECK: Supple without mass or thyromegaly. CHEST AND LUNGS: Clear to auscultation. HEART: Regular rate and rhythm. BREASTS: Are without mass or discharge. AXILLARY EXAM: Negative for adenopathy. BACK: Negative for CVA tenderness. ABDOMEN: Soft, nontender, without palpable masses. PELVIC EXAM: Normal external genitalia. Cervix and vagina appear normal. There is a white creamy discharge without odor noted in the vagina. There is no evidence of prolapse. The uterus is midposition, nongravid size and nontender. There are no palpable adnexal masses or tenderness. RECTAL EXAM: negative for mass or tenderness and is negative for occult blood. EXTREMITIES: Nontender. IMPRESSION: 1. 42-year-old female using condoms and spermicide for control. 2. Mildly symptomatic creamy white vaginal discharge on exam today. 3. She has completed her childbearing. PLAN: 1. Pap smear was deferred since she had a negative Pap smear, test on 04/01/2020. 2. Self breast awareness was discussed with the patient. We have also discussed symptoms associated with inflammatory breast cancer. 3. Screening mammogram will be done today. 4. Affirm vaginitis panel was obtained from the vagina. 5. Osteoporosis prevention was discussed. I have stressed the importance of adequate calcium, vitamin D and regular exercise. Recommended amounts of calcium and vitamin D were also discussed. 6. We have discussed various control options. Since she has completed her childbearing we have discussed vasectomy, tubal ligation, and intrauterine devices. The patient is interested in possibly having her get a vasectomy. The name of Dr. Ramachandran this was given to the patient who the patien t's can possibly see for vasectomy. She understands that she should continue to use condoms and spermicide until the vasectomy has been found to be effective. 7. She was advised to return in one year for her annual well woman exam.
--- NOTE | 2022-07-29 07:20 | MM ---
Reason for Exam: Screening (asymptomatic). Last mammogram was performed 1 year(s) and 1 month(s) ago. Patient History: Menarche at age 12. First Full-Term at age 23. Maternal grandmother had breast cancer. Last menstrual period: 07/22/2022 Risk Values: Ana Luisa 5 year model risk: 0.6%. NCI Lifetime model risk: 9.8%. Prior Study Comparison: 07/23/2021 Bilateral Screening Mammogram, [facility]. Tissue Density: The breast tissue is heterogeneously dense. This may lower the sensitivity of mammography. Findings: Analyzed By CAD. A few small benign-appearing round calcifications throughout the bilateral breasts are redemonstrated. There is no suspicious group of microcalcifications or new suspicious mass in either breast. Overall Assessment: Benign, BI-RAD 2 Management: Screening Mammogram of both breasts in 1 year. . Patient should continue monthly self-breast exams. A clinical breast exam by your physician is recommended on an annual basis. This exam should not preclude additional follow-up of suspicious palpable abnormalities. Note on Ana Luisa scores and lifetime risk: 1. A Ana Luisa score greater than 3% is considered moderate risk. If this is the case, consider specialist referral to assess eligibility for a risk reducing agent. 2. If overall lifetime risk for the development of breast cancer is 20% or higher, the patient may qualify for future screening with alternating mammogram and breast MRI. Electronically signed and approved by: Ankit Paula M.D.
== END ==
LOC: WWCWWP 10:45
PROVIDERS: ATTEND Obstetrics & Gynecology
DX: Z12.31 Encounter for screening mammogram for malignant neoplasm of breast (principal); Z01.419 Encounter for gynecological examination (general) (routine) without abnormal findings; E11.9 Type 2 diabetes mellitus without complications; E78.5 Hyperlipidemia, unspecified; F42.9 Obsessive-compulsive disorder, unspecified; I10 Essential (primary) hypertension; J45.909 Unspecified asthma, uncomplicated; N89.8 Other specified noninflammatory disorders of vagina; Z79.4 Long term (current) use of insulin; Z79.51 Long term (current) use of inhaled steroids; Z79.82 Long term (current) use of aspirin; Z79.84 Long term (current) use of oral hypoglycemic drugs; Z80.3 Family history of malignant neoplasm of breast; Z87.891 Personal history of nicotine dependence; Z88.0 Allergy status to penicillin; Z90.49 Acquired absence of other specified parts of digestive tract
CPT/HCPCS: 77067; 87480; 87510; 87660

== ENCOUNTER → 2023-01-05 | Outpatient (CLI) | payer MEDICARE ==
--- NOTE | 2023-01-05 17:57 | P.PN ---
Subjective DATE: 01/05/2023 FOLLOW UP VISIT. Patient with obstructive sleep apnea hypopnea syndrome return to sleep center for follow-up visit. Information from previous visit have been reviewed. Patient is using PAP equipment every night for the whole night, getting PAP supplies in time. The patient does not have significant problems with the mask, PAP unit and humidification. [place] sleepiness scale is 3. I checked information from PAP unit. PAP unit pressure 11 cm H2O. Usage is 100 % for more then 4 hours, average 7.75 hours per night. Leak is 9.1 l/m, which is in acceptable range. Apnea Hypopnea Index is 0.5, which is normal. MEDICATIONS:1. Metformin 1000 mg twice a day 2. Verapamil 360 mg once a day 3. Singulair 10 mg once a day 4., Atorvastatin 40 mg once a day 5. Ventolin 6. Lisinopril/hydrochlorothiazide 20/12.5 mg once a day 7. Insulin 8. Ezetimibe 10 mg once a day During physical exam: GENERAL: A pleasant patient without any distress. VITAL SIGNS: BP 138/73, HR 98, RR 16, weight 240.4, temperature 98.3, oxygen saturation at room air 95 % . HEENT: PERRLA, EOMI.low position of soft palate, Mallapati 4 . NECK: Supple. No JVD. LUNGS: Clear to percussion and to auscultation. Good air exchange. No wheezing or rhonchi. HEART: S1, S2 regular. ABDOMEN: Soft and nontender.[] EXTREMITIES: No clubbing or cyanosis. 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 No focal deficit. Impressions: 1. Obstructive sleep apnea-hypopnea syndrome. Patient demonstrated great compliance with treatment, benefiting from treatment. 2. Hypertension. 3. Asthma. 4. Diabetes mellitus. 5. Obesity. 6. History of anxiety. Plan: 1. Continue using PAP equipment every night for the whole night. 2. To change air filter at least 1-2 times per month. 3. PAP unit should stay lower then position of the head. 4. Advised patient to remove all remaining water from humidifier canister daily and make it dry after each usage. Refill canister with fresh distilled water before each usage. 5. Sleep hygiene with regular time in bed for at least 8 hours. 6. Precautions related to driving. No driving if feel any sleepiness. 7. I will maintain prescription for PAP supplies including mask, tube, filters. 8. Follow up visit in 6 months or earlier if patient has any problems. 9. Watching and losing weight. Thank you very much for allowing me to participate in the management of your patient. Jose Guadalupe Bucio MD, PhD, FAASM. Diplomat of [place] [employer], Sleep Medicine Board by [place] [employer] Card Placer of [facility] [place]
== END ==
LOC: 3 N SLEEP 15:07
PROVIDERS: ATTEND Internal Medicine
DX: G47.33 Obstructive sleep apnea (adult) (pediatric) (principal); I10 Essential (primary) hypertension; J45.909 Unspecified asthma, uncomplicated; E11.9 Type 2 diabetes mellitus without complications; E66.9 Obesity, unspecified; F41.9 Anxiety disorder, unspecified; Z99.89 Dependence on other enabling machines and devices; Z79.4 Long term (current) use of insulin; Z79.84 Long term (current) use of oral hypoglycemic drugs; Z79.899 Other long term (current) drug therapy; Z88.0 Allergy status to penicillin; Z87.891 Personal history of nicotine dependence
CPT/HCPCS: 99212

== ENCOUNTER 2023-03-30 16:04 | Emergency (ER) | payer MEDICARE ==
--- NOTE | 2023-03-30 16:32 | ED ---
ENT HPI - General Stated complaint: Jaw Pain Time Seen by Provider: 03/30/23 16:31 Source: patient, RN notes reviewed - History of Present Illness Initial comments: Patient's 43-year-old female presented ER with chief complaint of facial pain. Patient states she believes it is a tooth and is unable to get into a dentist until next week. Dentist told her to report to ER for symptoms. Patient reports that she has been trying [id number] Tylenol without improvement. Patient does report difficulty eating due to the pain. Patient denies any fevers, chills, night sweats, shortness of breath, chest pain. - Related Data Home Medications Medication Instructions Recorded Confirmed Albuterol Nebulized [Ventolin 2.5 mg INHALATION Q4H PRN 08/06/13 03/11/23 Nebulized] Albuterol Sulfate [Ventolin HFA] 2 puff INHALATION Q4H PRN 08/06/13 03/11/23 Budesonide/Formoterol Fumarate 2 puff INHALATION BID 08/06/13 03/11/23 [Symbicort 160-4.5 Mcg Inhaler] Citalopram Hydrobromide [CeleXA] 40 mg PO HS 08/06/13 03/11/23 Lisinopril-Hctz 20-12.5 mg 1 tab PO HS 08/06/13 03/11/23 [Zestoretic 20-12.5] Omalizumab [Xolair] 300 mg SQ Q28D 08/06/13 03/11/23 metFORMIN HCL [Glucophage] 1,000 mg PO BID 08/06/13 03/11/23 LORazepam [Ativan] 0.5 mg PO BID PRN 12/10/13 03/11/23 Atorvastatin [Lipitor] 40 mg PO HS 03/09/16 03/11/23 Verapamil HCl [Verapamil ER] 360 mg PO HS 03/09/16 03/11/23 risperiDONE [RisperDAL] 2 mg PO QAM 04/05/16 03/11/23 Insulin Glargine,Hum.rec.anlog 45 unit SQ BID 04/01/20 03/11/23 [Lantus Solostar Pen] Montelukast [Singulair] 10 mg PO HS 08/22/20 03/11/23 Dapagliflozin Propanediol [Farxiga] 10 mg PO DAILY 07/02/21 03/11/23 Insulin Aspart [NovoLOG Flexpen] 15 units SQ AC-TID 07/07/21 03/11/23 Ezetimibe [Zetia] 10 mg PO DAILY 02/05/22 03/11/23 Tirzepatide [Mounjaro] 7.5 mg SQ WEEKLY 04/02/22 03/11/23 Aspirin 81 mg PO DAILY 04/20/22 03/11/23 Ammonium Lactate Cream [Lac-Hydrin 1 applic TOPICAL DAILY 07/28/22 03/11/23 12% Cream] Previous Rx's Medication Instructions Recorded metroNIDAZOLE 500 mg PO BID 7 Days #14 tablet 07/30/22 Clindamycin [Cleocin] 150 mg PO Q6H 10 Days #40 capsule 03/30/23 Allergies Allergy/AdvReac Type Severity Reaction Status Date / Time Penicillins Allergy Rash/Hives Verified 03/30/23 16:39 Review of Systems ROS Statement: Those systems with pertinent positive or pertinent negative responses have been documented in the HPI. ROS Other: All systems not noted in ROS Statement are negative. 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 History of Any Multi-Drug Resistant Organisms: None Reported Past Surgical History: Appendectomy, Section Additional Past Surgical History / Comment(s): bronchioplasty, moles removed Past Anesthesia/Blood Transfusion Reactions: No Reported Reaction Smoking Status: Never smoker - Past Family History Mother Family Medical History: Cancer Additional Family Medical History / Comment(s): Skin cancer. Maternal grandmother Family Medical History: Cancer Additional Family Medical History / Comment(s): Breast, bone and skin cancer. The patient states her grandmother tested positive for a breast cancer gene. The patient's mother tested negative. General Exam - General Exam Comments Initial Comments: Visual Physical Exam Vital signs reviewed General: Well-appearing, nontoxic, no acute distress. Head: Normocephalic, atraumatic Eyes: PERRLA, EOMI ENT: Airway patent Chest: Nonlabored breathing Skin: No visual rash, normal skin tone Neuro: Alert and oriented 3 Musculoskeletal: No gross abnormalities Limitations: no limitations General appearance: alert, in no apparent distress Head exam: Present: atraumatic, normocephalic, normal inspection ENT exam: Present: normal exam, normal oropharynx (Tender left upper molar. No drainable abscess present. No broken teeth), mucous membranes moist, TM's normal bilaterally Neck exam: Present: normal inspection. Absent: tenderness, meningismus, lymphadenopathy Respiratory exam: Present: normal lung sounds bilaterally. Absent: respiratory distress, wheezes, rales, rhonchi, stridor Cardiovascular Exam: Present: regular rate, normal rhythm, normal heart sounds. Absent: systolic murmur, diastolic murmur, rubs, gallop, clicks Neurological exam: Present: alert, oriented X3, CN II-XII intact Psychiatric exam: Present: normal affect, normal mood Skin exam: Present: warm, dry, intact, normal color. Absent: rash Course Vital Signs 03/30/23 03/30/23 16:37 18:10 Temperature 97.7 F 97.8 F Pulse Rate 83 85 Respiratory 16 18 Rate Blood Pressure 122/72 124/74 O2 Sat by Pulse 93 L 95 Oximetry Medical Decision Making - Medical Decision Making I performed the quick note portion of the exam. Electronically signed by Tomasa Ornelas PA-C Was pt. sent in by a medical professional or institution (JUD Tinajero, DIRECTOR OF CONTRACTS, urgent care, hospital, or alf...) When possible be specific @ -No Did you speak to anyone other than the patient for history (EMS, parent, family, police, friend...)? What history was obtained from this source @ -No Did you review nursing and triage notes (agree or disagree)? Why? @ -I reviewed and agree with nursing and triage notes Were old charts reviewed (outside hosp., previous admission, EMS record, old EKG, old radiological studies, urgent care reports/EKG's, alf records)? Report findings @ -No old charts were reviewed Differential Diagnosis (chest pain, altered mental status, abdominal pain women, abdominal pain men, vaginal bleeding, weakness, fever, dyspnea, syncope, headache, dizziness, GI bleed, back pain, seizure, CVA, palpatations, mental health, musculoskeletal)? @ -Dental abscess, toothache, broken tooth, dental caries this list is not all inclusive EKG interpreted by me (3pts min.). @ -None X-rays interpreted by me (1pt min.). @ -None done CT interpreted by me (1pt min.). @ -None done U/S interpreted by me (1pt. min.). @ -None done What testing was considered but not performed or refused? (CT, X-rays, U/S, labs)? Why? @ -None What meds were considered but not given or refused? Why? @ -None Did you discuss the management of the patient with other professionals (professionals i.e. , PA, DIRECTOR OF CONTRACTS, lab, RT, psych nurse, social worker assistant, weight shifter, teacher, chief human resources officer, home health care case manager)? Give summary @ -No Was smoking cessation discussed for >3mins.? @ -No Was critical care preformed (if so, how long)? @ -No Were there social determinants of health that impacted care today? How? (Homelessness, low income, unemployed, alcoholism, drug addiction, transportation, low edu. Level, literacy, decrease access to med. care, senior care, rehab)? @ -No Was there de-escalation of care discussed even if they declined (Discuss DNR or withdrawal of care, Hospice)? DNR status @ -No What co-morbidities impacted this encounter? (DM, HTN, Smoking, COPD, CAD, Can cer, CVA, ARF, Chemo, Hep., AIDS, mental health diagnosis, sleep apnea, morbid obesity)? @ -None Was patient admitted / discharged? Hospital course, mention meds given and route, prescriptions, significant lab abnormalities, going to OR and other pertinent info. @ -Discharge. Patient is a 43-year-old female presented ER with chief complaint of a toothache. Vital stable. Exam did not show any broken teeth or drainable abscess. Patient was prescribed clindamycin and sent home with a starter pack of [place] for pain control. I educated patient on importance of complete full course of antibiotics. Patient reports she has an appointment with a dentist next week. I encouraged her to attend that appointment. Return parameters were discussed. Patient will be discharged in stable condition with follow-up to PCP and dentist. Patient expressed understanding and agreement with care plan. Undiagnosed new problem with uncertain prognosis? @ -No Drug Therapy requiring intensive monitoring for toxicity (Heparin, Nitro, Insulin, Cardizem)? @ -No Were any procedures done? @ -No Diagnosis/symptom? @ -Dental pain Acute, or Chronic, or Acute on Chronic? @ -Acute Uncomplicated (without systemic symptoms) or Complicated (systemic symptoms)? @ -Uncomplicated Side effects of treatment? @ -No Exacerbation, Progression, or Severe Exacerbation? @ -No Poses a threat to life or bodily function? How? (Chest pain, [place], [place], pneumonia, PE, COPD, DKA, ARF, appy, cholecystitis, CVA, Diverticulitis, Homicidal, Suicidal, threat to staff... and all critical care pts) @ -No Disposition Clinical Impression: Toothache Disposition: HOME SELF-CARE Condition: Stable Instructions (If sedation given, give patient instructions): Toothache (ED) Additional Instructions: Please complete full course of antibiotics. Please follow-up with dentist as scheduled on 04/05/23. Please return to the ER for any new or worsening symptoms. Prescriptions: Clindamycin [Cleocin] 150 mg PO Q6H 10 Days #40 capsule Is patient prescribed a controlled substance at d/c from ED?: No Referrals: Dima Law MD [Primary Care Provider] - 1-2 days Ryder Faith DDS [STAFF PHYSICIAN] - 1-2 days Cesilia Felix DDS [STAFF PHYSICIAN] - 1-2 days Time of Disposition: 17:35
[2023-03-30] MEDS ORDERED: ACET/COD 300 MG/30 MG STARTER PACK 6 TAB BTL PO STA (17:35)
[2023-03-30 18:59] VITALS: BP 124/74; PULSE 85; RESP 18; TEMP 97.8
== END 2023-03-30 18:10 | disposition home or self-care (01) ==
LOC: EC 16:04
DX: K08.89 Other specified disorders of teeth and supporting structures (principal); J45.909 Unspecified asthma, uncomplicated; E11.9 Type 2 diabetes mellitus without complications; I10 Essential (primary) hypertension; G47.30 Sleep apnea, unspecified; E78.5 Hyperlipidemia, unspecified; Z79.82 Long term (current) use of aspirin; Z79.4 Long term (current) use of insulin; Z79.84 Long term (current) use of oral hypoglycemic drugs; Z79.899 Other long term (current) drug therapy; Z79.51 Long term (current) use of inhaled steroids; Z88.0 Allergy status to penicillin
CPT/HCPCS: 99283

== ENCOUNTER → 2023-07-20 | Outpatient (CLI) | payer MEDICARE, OTHER ==
[2023-07-20 16:57] VITALS: BP 153/71; PULSE 127; RESP 20; TEMP 98
--- NOTE | 2023-07-20 17:44 | P.PN ---
Subjective DATE: 07/20/2023 FOLLOW UP VISIT. Patient with obstructive sleep apnea hypopnea syndrome return to sleep center for follow-up visit. Information from previous visit have been reviewed. Patient is using PAP equipment every night for the whole night, getting PAP supplies in time. The patient does not have significant problems with the mask, PAP unit and humidification. [place] sleepiness scale is 3, which is normal. I checked information from PAP unit. PAP unit pressure 11 cm H2O. Usage is 100% for more then 4 hours, average 7.8 hours per night. Leak is 6 l/m, which is in acceptable range. Apnea Hypopnea Index is 0.1, which is normal. MEDICATIONS:1. Lorazepam 1 mg half of the tablet 3 times a day 2. Mounjaro 10 mg once a week 3. NovoLog and Lantus 4. Metformin 1000 mg twice a day 5. Verapamil 360 mg once a day 6. Montelukast 10 mg once a day 7. Ezetimibe 10 mg once a day 8. Lisinoprilhydrochlorothiazide 20-12.5 mg once a day Citalopram 40 mg once a day Atorvastatin 40 mg once a day Symbicort Albuterol During physical exam: GENERAL: A pleasant patient without any distress. VITAL SIGNS: Please see below, weight 249.4 pounds. HEENT: PERRLA, EOMI.low position of soft palate, Mallapati 4 . NECK: Supple. No JVD. LUNGS: Clear to percussion and to auscultation. Good air exchange. No wheezing or rhonchi. HEART: S1, S2 regular. ABDOMEN: Soft and nontender.[] EXTREMITIES: No clubbing or cyanosis. 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 No focal deficit. Impressions: 1. Obstructive sleep apnea-hypopnea syndrome. Patient demonstrated great compliance with treatment, benefiting from treatment. 2. Asthma. 3. Hypertension. 4. Diabetes mellitus. 5. History of anxiety. 6. Obesity, patient increased weight on 9 pounds comparing with previous visit. Plan: 1. Continue using PAP equipment every night for the whole night. 2. To change air filter at least 1-2 times per month. 3. PAP unit should stay lower then position of the head. 4. Advised patient to remove all remaining water from humidifier canister daily and make it dry after each usage. Refill canister with fresh distilled water before each usage. 5. Sleep hygiene with regular time in bed for at least 8 hours. 6. Precautions related to driving. No driving if feel any sleepiness. 7. I will maintain prescription for PAP supplies including mask, tube, filters. 8. Watching and losing weight. 9. Follow up visit in 6 months or earlier if patient has any problems. Thank you very much for allowing me to participate in the management of your p atient. Jose Guadalupe Bucio MD, PhD, FAASM. Diplomat of [place] [employer], Sleep Medicine Board by [place] [employer] Diamond Powder Technician of [facility] [place] Objective - Vital Signs Vital signs: Vital Signs Temp 98.0 F 07/20/23 16:36 Pulse 127 H 07/20/23 16:36 Resp 20 07/20/23 16:36 BP 153/71 07/20/23 16:36 Pulse Ox 97 07/20/23 16:36 FiO2 Intake & Output 07/19/23 07/20/23 07/20/23 18:59 06:59 18:59 Weight 113.058 kg
== END ==
LOC: 3 N SLEEP 15:54
PROVIDERS: ATTEND Internal Medicine
DX: G47.33 Obstructive sleep apnea (adult) (pediatric) (principal); J45.909 Unspecified asthma, uncomplicated; E11.9 Type 2 diabetes mellitus without complications; I10 Essential (primary) hypertension; E66.9 Obesity, unspecified; F41.9 Anxiety disorder, unspecified; Z79.4 Long term (current) use of insulin; Z79.51 Long term (current) use of inhaled steroids; Z79.84 Long term (current) use of oral hypoglycemic drugs; Z79.899 Other long term (current) drug therapy; Z99.89 Dependence on other enabling machines and devices; Z79.85 Long-term (current) use of injectable non-insulin antidiabetic drugs; Z88.0 Allergy status to penicillin; Z87.891 Personal history of nicotine dependence
CPT/HCPCS: 99212

== ENCOUNTER → 2024-01-03 | Outpatient (CLI) | payer MEDICARE, OTHER ==
[2024-01-03 15:52] VITALS: BP 165/77; PULSE 100; RESP 17; TEMP 98.4
--- NOTE | 2024-01-03 16:30 | P.HPOB ---
History of Present Illness H&P Date: 01/03/24 Chief Complaint: The patient is here for her routine gynecologic exam and ma mmogram. This is a 43-year-old G1, P1 with an LMP of 12/20/2023. The patient thinks she had a yeast infection and she self treated herself with [id number] yeast infection cream about 5 days ago. She states her symptoms resolved. She is otherwise without gynecologic complaints. Menstrual periods are regular every month. She has used condoms and spermicide for control. Review of Systems The patient has gained 12 pounds over the last year. She denies respiratory, cardiac, or G.I. problems. 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 History of Any Multi-Drug Resistant Organisms: None Reported Past Surgical History: Appendectomy, Section Additional Past Surgical History / Comment(s): bronchioplasty, moles removed Past Anesthesia/Blood Transfusion Reactions: No Reported Reaction Past Psychological History: Anxiety, Depression Additional Psychological History / Comment(s): OCD. Smoking Status: Never smoker Past Alcohol Use History: None Reported Additional Past Alcohol Use History / Comment(s): Quit smoking in the . Past Drug Use History: None Reported Additional History: She has been since 2001. - Past Family History Mother Family Medical History: Cancer Additional Family Medical History / Comment(s): Skin cancer. Maternal grandmother Family Medical History: Cancer Additional Family Medical History / Comment(s): Breast, bone and skin cancer. The patient states her grandmother tested positive for a breast cancer gene. The patient's mother tested negative. Medications and Allergies Home Medications Medication Instructions Recorded Confirmed Type Albuterol Nebulized [Ventolin 2.5 mg INHALATION Q4H PRN 08/06/13 12/02/23 History Nebulized] Albuterol Sulfate [Ventolin HFA] 2 puff INHALATION Q4H PRN 08/06/13 12/02/23 History Budesonide/Formoterol Fumarate 2 puff INHALATION BID 08/06/13 12/02/23 History [Symbicort 160-4.5 Mcg Inhaler] Citalopram Hydrobromide [CeleXA] 40 mg PO HS 08/06/13 12/02/23 History Lisinopril-Hctz 20-12.5 mg 1 tab PO HS 08/06/13 12/02/23 History [Zestoretic 20-12.5] Omalizumab [Xolair] 300 mg SQ Q28D 08/06/13 12/02/23 History metFORMIN HCL [Glucophage] 1,000 mg PO BID 08/06/13 12/02/23 History LORazepam [Ativan] 0.5 mg PO BID PRN 12/10/13 12/02/23 History Atorvastatin [Lipitor] 40 mg PO HS 03/09/16 12/02/23 History Verapamil HCl [Verapamil ER] 360 mg PO HS 03/09/16 12/02/23 History risperiDONE [RisperDAL] 2 mg PO QAM 04/05/16 12/02/23 History Insulin Glargine,Hum.rec.anlog 45 unit SQ BID 04/01/20 12/02/23 History [Lantus Solostar Pen] Montelukast [Singulair] 10 mg PO HS 08/22/20 12/02/23 History Dapagliflozin Propanediol [Farxiga] 10 mg PO DAILY 07/02/21 12/02/23 History Insulin Aspart [NovoLOG Flexpen] 15 units SQ AC-TID 07/07/21 12/02/23 History Ezetimibe [Zetia] 10 mg PO DAILY 02/05/22 12/02/23 History Tirzepatide [Mounjaro] 7.5 mg SQ WEEKLY 04/02/22 12/02/23 History Aspirin 81 mg PO DAILY 04/20/22 12/02/23 History Ammonium Lactate Cream [Lac-Hydrin 1 applic TOPICAL DAILY 07/28/22 12/02/23 History 12% Cream] Allergies Allergy/AdvReac Type Severity Reaction Status Date / Time Penicillins Allergy Rash/Hives Verified 01/03/24 15:49 Exam Vital Signs Temp Pulse Resp BP Pulse Ox 01/03/24 15:50 98.4 F 100 17 165/77 97 Intake and Output 01/03/24 01/03/24 01/03/24 06:59 14:59 22:59 Other: Weight 112.037 kg Height 5 feet 5 inches, weight 247 pounds, BMI 41.1. This is a well-developed well-nourished heavyset female who is alert and oriented times 3 in no acute distress. HEENT: Within normal limits. NECK: Supple without mass or thyromegaly. CHEST AND LUNGS: Clear to auscultation. HEART: Regular rate and rhythm. BREASTS: Are without mass or discharge. AXILLARY EXAM: Negative for adenopathy. BACK: Negative for CVA tenderness. ABDOMEN: Soft, obese, nontender, without palpable masses. PELVIC EXAM: Normal external genitalia. Cervix and vagina appear normal. There is no unusual discharge. There is no evidence of prolapse. The uterus is midposition, nongravid size and nontender. There are no palpable adnexal masses or tenderness. Bimanual examination is somewhat limited secondary to her size. RECTAL EXAM: negative for mass or tenderness and is negative for occult blood. EXTREMITIES: Nontender. IMPRESSION: 1. 53-year-old female with normal gynecologic exam. 2. Elevated blood pressure with history of chronic hypertension. PLAN: 1. Pap smear cotest was performed. 2. Self breast awareness was discussed with the patient. We have also discussed symptoms associated with inflammatory breast cancer. 3. Screening mammogram will be done today. 4. We have discussed her elevated blood pressure. She will check her own blood pressures at home on a regular basis and follow-up with her PCP for blood pressure elevations. 5. She was advised to return in one year for her annual well woman exam.
--- NOTE | 2024-01-04 12:37 | MM ---
Reason for Exam: Screening (asymptomatic). Last mammogram was performed 1 year(s) and 5 month(s) ago. Patient History: Menarche at age 12. First Full-Term at age 23. Premenopausal. Maternal grandmother had breast cancer. Last menstrual period: 12/21/2023 Risk Values: Ana Luisa 5 year model risk: 0.6%. NCI Lifetime model risk: 9.7%. Prior Study Comparison: 07/23/2021 Bilateral Screening Mammogram, [facility]. 07/28/2022 Bilateral MG screening mammo w CAD, [facility]. Tissue Density: The breasts are heterogeneously dense, which may obscure small masses. Findings: Analyzed By CAD. There is no suspicious group of microcalcifications or new suspicious mass in either breast. Overall Assessment: Negative, BI-RAD 1 Management: Screening Mammogram of both breasts in 1 year. . Patient should continue monthly self-breast exams. A clinical breast exam by your physician is recommended on an annual basis. This exam should not preclude additional follow-up of suspicious palpable abnormalities. Note on Ana Luisa scores and lifetime risk: 1. A Ana Luisa score greater than 3% is considered moderate risk. If this is the case, consider specialist referral to assess eligibility for a risk reducing agent. 2. If overall lifetime risk for the development of breast cancer is 20% or higher, the patient may qualify for future screening with alternating mammogram and breast MRI. [facility], , 01/04/2024 12:34 PM. Electronically signed and approved by: John Menchaca M.D. Radiologis
== END ==
LOC: WWCWWP 15:38
PROVIDERS: ATTEND Obstetrics & Gynecology
DX: Z12.31 Encounter for screening mammogram for malignant neoplasm of breast (principal); R92.8 Other abnormal and inconclusive findings on diagnostic imaging of breast; R92.333 Mammographic heterogeneous density, bilateral breasts; I10 Essential (primary) hypertension; Z80.3 Family history of malignant neoplasm of breast; Z88.0 Allergy status to penicillin; Z79.899 Other long term (current) drug therapy; Z87.891 Personal history of nicotine dependence
CPT/HCPCS: 77067

== ENCOUNTER → 2024-01-13 | Outpatient (CLI) | payer MEDICARE, OTHER ==
--- NOTE | 2024-01-13 12:27 | XR ---
EXAMINATION TYPE: XR ankle complete LT DATE OF EXAM: 01/13/2024 12:15 PM CLINICAL INDICATION: Female, 43 years old with history of UNSPECIFIED INJURY OF LEFT ANKLE, INITIAL E NC; [facility] COMPARISON: None TECHNIQUE: XR ankle complete LT; ankle is imaged in frontal, lateral and oblique projections. FINDINGS: There is no evidence of acute osseous pathology. No evidence of subluxation or dislocation. Kager's fat pad is intact. Mild soft tissue swelling around the ankle. No radiopaque foreign bodies are ident ified. Calcaneal plantar spurring is present. IMPRESSION: 1. No evidence of acute fracture. 2. Subcutaneous swelling around the ankle likely secondary to underlying soft tissue injury. [facility], , 01/13/2024 12:25 PM
== END | disposition home or self-care (01) ==
LOC: RADXRMAIN 11:57
PROVIDERS: ATTEND Family Medicine

== ENCOUNTER → 2024-02-16 | Outpatient (CLI) | payer MEDICARE, OTHER ==
[2024-02-16 17:16] VITALS: BP 119/59; PULSE 112; RESP 16; TEMP 98.1
--- NOTE | 2024-02-16 17:30 | P.PROGSL ---
Subjective DATE: 02/16/2024 FOLLOW UP VISIT. Patient with obstructive sleep apnea hypopnea syndrome return to sleep center for follow-up visit. Information from previous visit have been reviewed. Patient is using PAP equipment every night for the whole night, getting PAP supplies in time. The patient does not have significant problems with the mask, PAP unit and humidification. [place] sleepiness scale is 5, which is normal. I checked information from PAP unit. PAP unit pressure 11 cm H2O. Usage is 95% for more then 4 hours, average 8.2 hours per night. Leak is 0 l/m, which is in acceptable range. Apnea Hypopnea Index is 0.2, which is normal. MEDICATIONS have been reviewed, please see below. During physical exam: GENERAL: A pleasant patient without any distress. VITAL SIGNS: Please see below, weight is 247 lbs. HEENT: PERRLA, EOMI.low position of soft palate, Mallapati 4 . NECK: Supple. No JVD. LUNGS: Clear to percussion and to auscultation. Good air exchange. No wheezing or rhonchi. HEART: S1, S2 regular. ABDOMEN: Soft and nontender. Obese EXTREMITIES: No clubbing or cyanosis. LITERATURE TEACHER: Awake, alert, and oriented x3. No focal deficit. Impressions: 1. Obstructive sleep apnea-hypopnea syndrome. Patient demonstrated great compliance with treatment, benefiting from treatment. 2. Obesity, BMI 39.9. 3. Asthma. 4. Hypertension. 5. Diabetes mellitus. 6. History of anxiety. Plan: 1. Continue using PAP equipment every night for the whole night. 2. Sleep hygiene with regular time in bed for at least 7.5-8 hours 3. PAP unit should stay lower then position of the head. 4. Advised patient to remove all remaining water from humidifier canister daily and make it dry after each usage. Refill canister with fresh distilled water before each usage. 5. Watching and losing weight. 6. Precautions related to driving. No driving if feel any sleepiness. 7. I will maintain prescription for PAP supplies including mask, tube, filters. 8. Follow up visit in 6 months or earlier if patient has any problems. Thank you very much for allowing me to participate in the management of your patient. Jose Guadalupe Bucio MD, PhD, FAASM. Diplomat of [place], Sleep Medicine Board by [place] [facility] [place] Objective - Vital Signs Vital Signs: Vital Signs Temp 98.1 F 02/16/24 17:14 Pulse 112 H 02/16/24 17:14 Resp 16 02/16/24 17:14 BP 119/59 02/16/24 17:14 Pulse Ox 94 L 02/16/24 17:14 FiO2 Intake & Output 02/15/24 02/16/24 02/16/24 18:59 06:59 18:59 Weight 109.316 kg Home Medications: Home Medications Medication Instructions Recorded Confirmed Type Albuterol Nebulized [Ventolin 2.5 mg INHALATION Q4H PRN 08/06/13 01/20/24 History Nebulized] Albuterol Sulfate [Ventolin HFA] 2 puff INHALATION Q4H PRN 08/06/13 01/20/24 History Budesonide/Formoterol Fumarate 2 puff INHALATION BID 08/06/13 01/20/24 History [Symbicort 160-4.5 Mcg Inhaler] Citalopram Hydrobromide [CeleXA] 40 mg PO HS 08/06/13 01/20/24 History Lisinopril-Hctz 20-12.5 mg 1 tab PO HS 08/06/13 01/20/24 History [Zestoretic 20-12.5] Omalizumab [Xolair] 300 mg SQ Q28D 08/06/13 01/20/24 History metFORMIN HCL [Glucophage] 1,000 mg PO BID 08/06/13 01/20/24 History LORazepam [Ativan] 0.5 mg PO BID PRN 12/10/13 01/20/24 History Atorvastatin [Lipitor] 40 mg PO HS 03/09/16 01/20/24 History Verapamil HCl [Verapamil ER] 360 mg PO HS 03/09/16 01/20/24 History risperiDONE [RisperDAL] 2 mg PO QAM 04/05/16 01/20/24 History Insulin Glargine,Hum.rec.anlog 45 unit SQ BID 04/01/20 01/20/24 History [Lantus Solostar Pen] Montelukast [Singulair] 10 mg PO HS 08/22/20 01/20/24 History Dapagliflozin Propanediol [Farxiga] 10 mg PO DAILY 07/02/21 01/20/24 History Insulin Aspart [NovoLOG Flexpen] 15 units SQ AC-TID 07/07/21 01/20/24 History Ezetimibe [Zetia] 10 mg PO DAILY 02/05/22 01/20/24 History Tirzepatide [Mounjaro] 10 mg SQ WEEKLY 04/02/22 01/20/24 History Aspirin 81 mg PO DAILY 04/20/22 01/20/24 History Ammonium Lactate Cream [Lac-Hydrin 1 applic TOPICAL DAILY 07/28/22 01/20/24 History 12% Cream] Empagliflozin [Jardiance] 25 mg PO DAILY 01/20/24 01/20/24 History
== END ==
LOC: 3 N SLEEP 16:07
PROVIDERS: ATTEND Internal Medicine
DX: G47.33 Obstructive sleep apnea (adult) (pediatric) (principal); E66.9 Obesity, unspecified; J45.909 Unspecified asthma, uncomplicated; I10 Essential (primary) hypertension; E11.9 Type 2 diabetes mellitus without complications; F41.9 Anxiety disorder, unspecified; Z99.89 Dependence on other enabling machines and devices; Z68.39 Body mass index [BMI] 39.0-39.9, adult; Z88.0 Allergy status to penicillin; Z79.84 Long term (current) use of oral hypoglycemic drugs; Z79.899 Other long term (current) drug therapy; Z79.4 Long term (current) use of insulin; Z79.85 Long-term (current) use of injectable non-insulin antidiabetic drugs; Z79.51 Long term (current) use of inhaled steroids; Z87.891 Personal history of nicotine dependence
CPT/HCPCS: 99212

== ENCOUNTER 2024-10-14 12:36 | Emergency (ER) | payer MEDICARE, OTHER ==
--- NOTE | 2024-10-14 12:57 | ED ---
General Adult HPI - General Chief complaint: Extremity Problem,Nontraumatic Stated complaint: Swollen Left Leg Time Seen by Provider: 10/14/24 12:42 Source: patient, RN notes reviewed Mode of arrival: ambulatory Limitations: no limitations - History of Present Illness Initial comments: This is a 44-year-old female with history of HLD, HNT, T2DM presenting to the emergency department with complaints of left lower extremity swelling and discoloration to her second digit that she noticed yesterday. States that over the past few days she noticed that her left lower leg was swollen with the digit being discolored. Patient states that she does not have pain however states that it feels "tight ". She denies chest pain, heart palpitations, dyspnea, recent prolonged travel or surgeries, history of DVT or PE. Denies history of gangrene or history of amputations. Denies pain to the toe that is discolored. Denies history of PAD. Smoking history in her teenage years. Denies current smoking. Denies fevers or chills. - Related Data Home Medications Medication Instructions Recorded Confirmed Albuterol Nebulized [Ventolin 2.5 mg INHALATION Q4H PRN 08/06/13 07/20/24 Nebulized] Albuterol Sulfate [Ventolin HFA] 2 puff INHALATION Q4H PRN 08/06/13 07/20/24 Budesonide/Formoterol Fumarate 2 puff INHALATION BID 08/06/13 07/20/24 [Symbicort 160-4.5 Mcg Inhaler] Citalopram Hydrobromide [CeleXA] 40 mg PO HS 08/06/13 07/20/24 Lisinopril-Hctz 20-12.5 mg 1 tab PO HS 08/06/13 07/20/24 [Zestoretic 20-12.5] Omalizumab [Xolair] 300 mg SQ Q28D 08/06/13 07/20/24 metFORMIN HCL [Glucophage] 1,000 mg PO BID 08/06/13 07/20/24 LORazepam [Ativan] 0.5 mg PO BID PRN 12/10/13 07/20/24 Atorvastatin [Lipitor] 40 mg PO HS 03/09/16 07/20/24 Verapamil HCl [Verapamil ER] 360 mg PO HS 03/09/16 07/20/24 risperiDONE [RisperDAL] 2 mg PO QAM 04/05/16 07/20/24 Insulin Glargine,Hum.rec.anlog 45 unit SQ BID 04/01/20 07/20/24 [Lantus Solostar Pen] Montelukast [Singulair] 10 mg PO HS 08/22/20 07/20/24 Dapagliflozin Propanediol [Farxiga] 10 mg PO DAILY 07/02/21 07/20/24 Insulin Aspart [NovoLOG Flexpen] 15 units SQ AC-TID 07/07/21 07/20/24 Ezetimibe [Zetia] 10 mg PO DAILY 02/05/22 07/20/24 Tirzepatide [Mounjaro] 10 mg SQ WEEKLY 04/02/22 07/20/24 Aspirin 81 mg PO DAILY 04/20/22 07/20/24 Ammonium Lactate Cream [Lac-Hydrin 1 applic TOPICAL DAILY 07/28/22 07/20/24 12% Cream] Empagliflozin [Jardiance] 25 mg PO DAILY 01/20/24 07/20/24 Previous Rx's Medication Instructions Recorded Cephalexin [Keflex] 500 mg PO Q6HR #40 cap 10/14/24 Sulfamethox-Tmp 800-160Mg [Bactrim 1 each PO Q12HR #20 tab 10/14/24 Ds] clindamycin HCL 300 mg PO QID #40 cap 10/14/24 Allergies Allergy/AdvReac Type Severity Reaction Status Date / Time Penicillins Allergy Rash/Hives Verified 10/14/24 12:38 Review of Systems ROS Statement: Those systems with pertinent positive or pertinent negative responses have been documented in the HPI. ROS Other: All systems not noted in ROS Statement are negative. 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 History of Any Multi-Drug Resistant Organisms: None Reported Past Surgical History: Appendectomy, Section Additional Past Surgical History / Comment(s): bronchioplasty, moles removed Past Anesthesia/Blood Transfusion Reactions: No Reported Reaction Past Psychological History: Anxiety, Depression Smoking Status: Former smoker - Past Family History Mother Family Medical History: Cancer Additional Family Medical History / Comment(s): Skin cancer. Maternal grandmother Family Medical History: Cancer Additional Family Medical History / Comment(s): Breast, bone and skin cancer. The patient states her grandmother tested positive for a breast cancer gene. The patient's mother tested negative. General Exam Limitations: no limitations Neck exam: Present: normal inspection. Absent: tenderness, meningismus, lymphadenopathy Respiratory exam: Present: normal lung sounds bilaterally. Absent: respiratory distress, wheezes, rales, rhonchi, stridor Cardiovascular Exam: Present: regular rate, normal rhythm, normal heart sounds. Absent: systolic murmur, diastolic murmur, rubs, gallop, clicks GI/Abdominal exam: Present: soft, normal bowel sounds. Absent: distended, tenderness, guarding, rebound, rigid Left Lower Leg exam: Present: swelling, erythema. Absent: ecchymosis, deformity, crepitus, palpable cord, Homans' sign Foot/Toe exam: Present: tenderness, erythema. Absent: abrasion, laceration Neurovascular tendon exam: Present: no vascular compromise. Absent: pulse deficit Gait: observed and normal Back exam: Present: normal inspection Skin exam: Present: warm, dry, intact, normal color. Absent: rash Course Vital Signs 10/14/24 10/14/24 10/14/24 12:38 14:01 14:38 Temperature 98.1 F 98.0 F Pulse Rate 115 H 107 H 68 Respiratory 18 20 20 Rate Blood Pressure 125/72 120/62 122/72 O2 Sat by Pulse 94 L 95 99 Oximetry Medical Decision Making - Medical Decision Making Was pt. sent in by a medical professional or institution (JUD Tinajero, SENIOR PORTFOLIO ANALYST, urgent care, hospital, or senior living...) When possible be specific @ -No Did you speak to anyone other than the patient for history (EMS, parent, family, police, friend...)? What history was obtained from this source @ -No Did you review nursing and triage notes (agree or disagree)? Why? @ -I reviewed and agree with nursing and triage notes Were old charts reviewed (outside hosp., previous admission, EMS record, old EKG, old radiological studies, urgent care reports/EKG's, senior living records)? Report findings @ -No old charts were reviewed Differential Diagnosis (chest pain, altered mental status, abdominal pain women, abdominal pain men, vaginal bleeding, weakness, fever, dyspnea, syncope, headache, dizziness, GI bleed, back pain, seizure, CVA, palpatations, mental health, musculoskeletal)? @ -Cellulitis, peripheral arterial disease, venous insufficiency, osteomyelitis, DVT, superficial thrombophlebitis, this list is not all inclusive EKG interpreted by me (3pts min.). @ -None X-rays interpreted by me (1pt min.). @ -X-ray of the left foot reveals no evidence of acute fracture or osseous abnormality. CT interpreted by me (1pt min.). @ -None done U/S interpreted by me (1pt. min.). @ -Ultrasound imaging of the left lower extremity no evidence for DVT. What testing was considered but not performed or refused? (CT, X-rays, U/S, labs)? Why? @ -None What meds were considered but not given or refused? Why? @ -None Did you discuss the management of the patient with other professionals (deya orta idiana Tinajero, PA, SENIOR PORTFOLIO ANALYST, lab, RT, psych nurse, case management social worker, environment coordinator, teacher, chief sales officer, case management social worker)? Give summary @ -No Was smoking cessation discussed for >3mins.? @ -No Was critical care preformed (if so, how long)? @ -No Were there social determinants of health that impacted care today? How? (Homelessness, low income, unemployed, alcoholism, drug addiction, transportation, low edu. Level, literacy, decrease access to med. care, skilled nursing, rehab)? @ -No Was there de-escalation of care discussed even if they declined (Discuss DNR or withdrawal of care, Hospice)? DNR status @ -No What co-morbidities impacted this encounter? (DM, HTN, Smoking, COPD, CAD, Cancer, CVA, ARF, Chemo, Hep., AIDS, mental health diagnosis, sleep apnea, morbid obesity)? @ -None Was patient admitted / discharged? Hospital course, mention meds given and route, prescriptions, significant lab abnormalities, going to OR and other pertinent info. @ - Discharge. 44 female presenting with left lower extremity swelling and third digit discoloration. Patient has a 2+ pedal pulse. Foot overall is dry with areas of callused and cracked skin. Second digit appears cellulitic in nature that is warm to the touch and discolored. Unable to assess capillary refill as patient's toenails are painted. She was offered medication for pain however she declines and that she is not in any pain. Laboratory testing is unremarkable including CBC, CMP, lactic acid and CRP. Ultrasound imaging and x- rays are unremarkable. Patient will be treated for cellulitis with Rocephin and outpatient prescription for clindamycin and Bactrim. Recommend that she follow- up with her primary care provider in the next 2 to 3 days. Strict return parameters discussed. Patient is verbalized understanding. Case discussed with my attending Dr. Gutierrez Undiagnosed new problem with uncertain prognosis? @ -No Drug Therapy requiring intensive monitoring for toxicity (Heparin, Nitro, Insulin, Cardizem)? @ -No Were any procedures done? @ -No Diagnosis/symptom? @ -Cellulitis Acute, or Chronic, or Acute on Chronic? @ -Acute Uncomplicated (without systemic symptoms) or Complicated (systemic symptoms)? @ -Uncomplicated Side effects of treatment? @ -No Exacerbation, Progression, or Severe Exacerbation? @ -No Poses a threat to life or bodily function? How? (Chest pain, USA, NC, pneumonia, PE, COPD, DKA, ARF, appy, cholecystitis, CVA, Diverticulitis, Homicidal, Suicidal, threat to staff... and all critical care pts) @ -No - Lab Data Result diagrams: 10/14/24 13:10 10/14/24 13:10 Lab Results 10/14/24 10/14/24 10/14/24 Range/Units 13:10 13:10 13:10 WBC 7.97 (4.50-10.00) 10*3/uL RBC 3.86 L (4.10-5.20) 10*6/uL Hgb 10.7 L (12.0-15.0) g/dL Hct 32.8 L (37.2-46.3) % MCV 85.0 (80.0-97.0) fL MCH 27.7 (27.0-32.0) pg MCHC 32.6 (32.0-37.0) g/dL Plt Count 381 (140-440) 10*3/uL MPV 8.8 L (9.5-12.2) fL Immature Gran % (Auto) 0.6 % Neutrophils % 64.7 % Lymphocytes % 25.8 % Monocytes % 6.4 % Eosinophils % 2.0 % Basophils % 0.5 % Immature Gran # 0.05 H (0.00-0.04) 10*3/uL Neutrophils # 5.15 (1.80-7.70) 10*3/uL Lymphocytes # 2.06 (0.90-5.00) 10*3/uL Monocytes # 0.51 (0.20-1.00) 10*3/uL Eosinophils # 0.16 (0.04-0.35) 10*3/uL Basophils # 0.04 (0.00-0.10) 10*3/uL Sodium 142 (137-145) mmol/L Potassium 4.5 (3.5-5.1) mmol/L Chloride 105 (98-107) mmol/L Carbon Dioxide 25 (22-30) mmol/L Anion Gap 12 mmol/L BUN 11 (7-17) mg/dL Creatinine 0.45 L (0.52-1.04) mg/dL Est GFR (CKD-EPI)AfAm >90 (>60 ml/min/1.73 sqM) Est GFR (CKD-EPI)NonAf >90 (>60 ml/min/1.73 sqM) Glucose 70 L (74-99) mg/dL Plasma Lactic Acid Akshat 1.4 (0.7-2.0) mmol/L Calcium 9.1 (8.4-10.2) mg/dL Total Bilirubin 0.5 (0.2-1.3) mg/dL AST 26 (14-36) U/L ALT 19 (4-34) U/L Alkaline Phosphatase 56 (38-126) U/L C-Reactive Protein 1.9 H (<1.0) mg/dL Total Protein 6.8 (6.3-8.2) g/dL Albumin 4.0 (3.5-5.0) g/dL Disposition Clinical Impression: Cellulitis of toe of left foot Disposition: HOME SELF-CARE Condition: Good Instructions (If sedation given, give patient instructions): Cellulitis (ED) Additional Instructions: Please return to the Emergency Department if symptoms worsen or any other concerns. Prescriptions: Sulfamethox-Tmp 800-160Mg [Bactrim Ds] 1 each PO Q12HR #20 tab clindamycin HCL 300 mg PO QID #40 cap Cephalexin [Keflex] 500 mg PO Q6HR #40 cap Is patient prescribed a controlled substance at d/c from ED?: No Referrals: Dima Law MD [Primary Care Provider] - 1-2 days Time of Disposition: 14:13
--- NOTE | 2024-10-14 13:12 | XR ---
EXAMINATION TYPE: XR foot complete LT DATE OF EXAM: 10/14/2024 1:07 PM INDICATION: Patient age:Female; 44 years old; Reason for study: digit swelling, erythema, hx DM; PHH. pain COMPARISON: Left ankle radiographs 01/13/2024 TECHNIQUE: The left foot was examined in the AP, oblique, and lateral projections. FINDINGS: No evidence of any acute osseous pathology. No evidence of soft tissue swelling. Joints are preserve d. No osseous erosions. No radiopaque foreign body. Small plantar calcaneal enthesophyte. IMPRESSION: No evidence of acute fracture. [facility], , 10/14/2024 1:09 PM
[2024-10-14 13:16] LABS: Basophils # (A) 0.04 10*3/uL (0.00-0.10); Basophils % (A) 0.5 %; Eosinophils # (A) 0.16 10*3/uL (0.04-0.35); Eosinophils % (A) 2.0 %; HCT 32.8 % (37.2-46.3); HGB 10.7 g/dL (12.0-15.0); Lymphocytes # (A) 2.06 10*3/uL (0.90-5.00); Lymphocytes % (A) 25.8 %; MCH 27.7 pg (27.0-32.0); MCHC 32.6 g/dL (32.0-37.0); MCV 85.0 fL (80.0-97.0); Monocytes # (A) 0.51 10*3/uL (0.20-1.00); Monocytes % (A) 6.4 %; Neutrophils # (A) 5.15 10*3/uL (1.80-7.70); Neutrophils % (A) 64.7 %; Platelet Count 381 10*3/uL (140-440); RBC 3.86 10*6/uL (4.10-5.20); RDW 14.3 % (11.5-14.5); WBC 7.97 10*3/uL (4.50-10.00)
[2024-10-14 13:29] LABS: ALT 19 U/L (4-34); African American GFR (CKD) >90 (>60 ml/min/1.73 sqM); Albumin 4.0 g/dL (3.5-5.0); Anion Gap 12 mmol/L; Blood Urea Nitrogen 11 mg/dL (7-17); Calcium 9.1 mg/dL (8.4-10.2); Carbon Dioxide 25 mmol/L (22-30); Chloride 105 mmol/L (98-107); Glucose 70 mg/dL (74-99); Non-African American GFR(CKD) >90 (>60 ml/min/1.73 sqM); Sodium 142 mmol/L (137-145); Total Protein 6.8 g/dL (6.3-8.2)
[2024-10-14 13:34] LABS: AST 26 U/L (14-36); Alkaline Phosphatase 56 U/L (38-126); Potassium 4.5 mmol/L (3.5-5.1)
--- NOTE | 2024-10-14 13:51 | US ---
EXAMINATION TYPE: US venous doppler duplex LE LT; DATE OF EXAM: 10/14/2024 COMPARISON: EXAMINATION TYPE: US venous doppler duplex LE LT DATE OF EXAM: 10/14/2024 1:42 PM COMPARISON: NONE CLINICAL INDICATION: Female, 44 years old with history of LLE swelling, erythema; Left leg edema. TECHNIQUE: The lower extremity deep venous system is examined utilizing real time linear array sonog nisa with graded compression, doppler sonography and color-flow sonography. Grayscale, color doppler , spectral doppler imaging performed of the deep veins of the lower extremities FINDINGS: SIDE PERFORMED: Left VESSELS IMAGED: Common Femoral Vein Deep Femoral Vein Greater Saphenous Vein * Femoral Vein Popliteal Vein Small Saphenous Vein * Proximal Calf Veins (* superficial vessels) Left Leg: Negative for DVT; There is normal flow, compressibility, vascular waveforms. IMPRESSION: No evidence for deep vein thrombosis of the left lower extremity. [facility], , 10/14/2024 1:48 PM
[2024-10-14 14:02] VITALS: RESP 20
[2024-10-14] MEDS: cefTRIAXone IN SWFI 1,000 MG/10 ML SYRINGE IVP STA (14:20)
[2024-10-14 14:40] VITALS: BP 122/72; PULSE 68; TEMP 98
== END 2024-10-14 14:40 | disposition home or self-care (01) ==
LOC: EC 12:36
DX: L03.032 Cellulitis of left toe (principal); Z87.891 Personal history of nicotine dependence; Z88.0 Allergy status to penicillin
CPT/HCPCS: 36415; 80053; 83605; 85025; 86140; 96374; 99284

== ENCOUNTER 2024-10-15 20:39 | Observation (INO) | payer MEDICARE, OTHER ==
--- NOTE | 2024-10-15 22:07 | ED ---
General Adult HPI - General Chief complaint: Extremity Problem,Nontraumatic Stated complaint: Swelling Hands/Arms, Legs,Facial Time Seen by Provider: 10/15/24 21:27 Source: patient, RN notes reviewed Mode of arrival: ambulatory Limitations: no limitations - History of Present Illness Initial comments: 44-year-old female presents to the emergency department for evaluation of left lower extremity edema, left upper extremity edema. Patient states that she was seen and evaluated here yesterday. She has placed on antibiotics for an infection in her toe. She states that she has had 3 doses of clindamycin so far. She notes that today she has had a fever at home and feels like her heart is racing. She does report taking ibuprofen around 4 PM. - Related Data Home Medications Medication Instructions Recorded Confirmed Albuterol Nebulized [Ventolin 2.5 mg INHALATION RT-Q4H PRN 08/06/13 10/16/24 Nebulized] Albuterol Sulfate [Ventolin HFA] 1 - 2 puff INHALATION RT-Q6H PRN 08/06/13 10/16/24 Budesonide/Formoterol Fumarate 2 puff INHALATION RT-BID 08/06/13 10/16/24 [Symbicort 160-4.5 Mcg Inhaler] Citalopram Hydrobromide [CeleXA] 40 mg PO DAILY 08/06/13 10/16/24 Lisinopril-Hctz 20-12.5 mg 1 tab PO DAILY 08/06/13 10/16/24 [Zestoretic 20-12.5] metFORMIN HCL [Glucophage] 1,000 mg PO BID 08/06/13 10/16/24 LORazepam [Ativan] 0.5 mg PO TID 12/10/13 10/16/24 Atorvastatin [Lipitor] 40 mg PO HS 03/09/16 10/16/24 risperiDONE [RisperDAL] 1 mg PO BID 04/05/16 10/16/24 Insulin Glargine,Hum.rec.anlog 30 unit SQ BID 04/01/20 10/16/24 [Lantus Solostar Pen] Montelukast [Singulair] 10 mg PO DAILY 08/22/20 10/16/24 Insulin Aspart [NovoLOG Flexpen] 7 - 8 units SQ AC-TID 07/07/21 10/16/24 Ezetimibe [Zetia] 10 mg PO HS 02/05/22 10/16/24 Ammonium Lactate Cream [Lac-Hydrin 1 applic TOPICAL HS 07/28/22 10/16/24 12% Cream] Empagliflozin [Jardiance] 25 mg PO DAILY 01/20/24 10/16/24 Hydrocortisone Cream 1 applic TOPICAL DAILY PRN 10/16/24 10/16/24 [Hydrocortisone 2.5% Cream] Ketoconazole 2% Cream [Nizoral 2%] 1 applic TOPICAL BID PRN 10/16/24 10/16/24 Tirzepatide [Mounjaro] 10 mg SQ SHEARER 10/16/24 10/16/24 Verapamil HCl [Verelan] 360 mg PO DAILY 10/16/24 10/16/24 Previous Rx's Medication Instructions Recorded Cephalexin [Keflex] 500 mg PO Q6HR 7 Days #28 cap 10/22/24 Allergies Allergy/AdvReac Type Severity Reaction Status Date / Time Penicillins Allergy Rash/Hives Verified 10/16/24 08:48 Review of Systems ROS Statement: Those systems with pertinent positive or pertinent negative responses have been documented in the HPI. ROS Other: All systems not noted in ROS Statement are negative. 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 History of Any Multi-Drug Resistant Organisms: None Reported Past Surgical History: Appendectomy, Section Additional Past Surgical History / Comment(s): bronchioplasty, moles removed Past Anesthesia/Blood Transfusion Reactions: No Reported Reaction Past Psychological History: Anxiety, Depression Smoking Status: Former smoker - Past Family History Mother Family Medical History: Cancer Additional Family Medical History / Comment(s): Skin cancer. Maternal grandmother Family Medical History: Cancer Additional Family Medical History / Comment(s): Breast, bone and skin cancer. The patient states her grandmother tested positive for a breast cancer gene. The patient's mother tested negative. General Exam Limitations: no limitations General appearance: alert, in no apparent distress Head exam: Present: atraumatic, normocephalic, normal inspection Eye exam: Present: normal appearance, PERRL, EOMI. Absent: scleral icterus, conjunctival injection, periorbital swelling ENT exam: Present: normal exam, mucous membranes moist Respiratory exam: Present: normal lung sounds bilaterally. Absent: respiratory distress, wheezes, rales, rhonchi, stridor Cardiovascular Exam: Present: normal rhythm, tachycardia, normal heart sounds. Absent: systolic murmur, diastolic murmur, rubs, gallop, clicks Extremities exam: Present: full ROM, normal capillary refill, pedal edema (Bilateral lower extremity edema), other (Left lower extremity erythema and edema, edema to the left hand). Absent: tenderness, joint swelling, calf tenderness Neurological exam: Present: alert, oriented X3 Psychiatric exam: Present: normal affect, normal mood Skin exam: Present: warm, dry. Absent: intact, normal color Course Vital Signs 10/15/24 10/15/24 10/16/24 21:02 22:55 01:31 Temperature 99.3 F 99.5 F 99 F Pulse Rate 130 H 133 H 110 H Respiratory 16 18 18 Rate Blood Pressure 138/75 104/46 115/44 O2 Sat by Pulse 96 93 L 96 Oximetry 10/16/24 10/16/24 10/16/24 01:44 01:51 03:20 Temperature Pulse Rate 111 H Respiratory 18 Rate Blood Pressure 106/50 107/50 82/65 O2 Sat by Pulse Oximetry 10/16/24 10/16/24 10/16/24 03:52 04:00 04:23 Temperature Pulse Rate 98 Respiratory 18 Rate Blood Pressure 120/48 100/41 110/49 O2 Sat by Pulse Oximetry 10/16/24 10/16/24 10/16/24 04:35 04:56 05:30 Temperature Pulse Rate 102 H Respiratory 18 Rate Blood Pressure 103/54 103/42 92/46 O2 Sat by Pulse Oximetry 10/16/24 10/16/24 10/16/24 05:49 06:52 08:21 Temperature Pulse Rate 110 H Respiratory 20 Rate Blood Pressure 99/55 100/61 106/53 O2 Sat by Pulse 98 Oximetry 10/16/24 10/16/24 08:53 10:34 Temperature Pulse Rate 115 H Respiratory 20 Rate Blood Pressure 126/91 O2 Sat by Pulse 95 97 Oximetry Medical Decision Making - Medical Decision Making Was pt. sent in by a medical professional or institution (, PA, NETWORK LEAD, urgent care, hospital, or half-way...) When possible be specific @ -No Did you speak to anyone other than the patient for history (EMS, parent, family, police, friend...)? What history was obtained from this source @ -No Did you review nursing and triage notes (agree or disagree)? Why? @ -I reviewed and agree with nursing and triage notes Were old charts reviewed (outside hosp., previous admission, EMS record, old EKG, old radiological studies, urgent care reports/EKG's, half-way records)? Report findings @ -I reviewed the charts from yesterday's visit including CBC, CMP, foot x-ray. Differential Diagnosis (chest pain, altered mental status, abdominal pain women, abdominal pain men, vaginal bleeding, weakness, fever, dyspnea, syncope, headache, dizziness, GI bleed, back pain, seizure, CVA, palpatations, mental health, musculoskeletal)? @ -Differential Weakness: Hypoglycemia, shock, sepsis, hyponatremia, anemia, infection, NJ, ETOH, adverse medicine reaction, overdose, stroke, this is not meant to be an all-inclusive list. EKG interpreted by me (3pts min.). @ -EKG at 2331 shows sinus tachycardia short MS with a rate of 124, MS 116, QRS 98, QTQTc [id number] X-rays interpreted by me (1pt min.). @ -None done CT interpreted by me (1pt min.). @ -None done U/S interpreted by me (1pt. min.). @ -None done What testing was considered but not performed or refused? (CT, X-rays, U/S, labs)? Why? @ -None What meds were considered but not given or refused? Why? @ -None Did you discuss the management of the patient with other professionals (professionals i.e. , PA, NETWORK LEAD, lab, RT, psych nurse, clinical social work therapist, box sealing machine catcher, teacher, mobile patrol officer, medical case worker)? Give summary @ -Discussed withDr. Law who is accepting of the admission Was smoking cessation discussed for >3mins.? @ -No Was critical care preformed (if so, how long)? @ -No Were there social determinants of health that impacted care today? How? (Homelessness, low income, unemployed, alcoholism, drug addiction, transporta tion, low edu. Level, literacy, decrease access to med. care, residential, rehab)? @ -No Was there de-escalation of care discussed even if they declined (Discuss DNR or withdrawal of care, Hospice)? DNR status @ -No What co-morbidities impacted this encounter? (DM, HTN, Smoking, COPD, CAD, Cancer, CVA, ARF, Chemo, Hep., AIDS, mental health diagnosis, sleep apnea, morbid obesity)? @ -T2DM Was patient admitted / discharged? Hospital course, mention meds given and route, prescriptions, significant lab abnormalities, going to OR and other pertinent info. @ -admitted Patient presented to the emergency department worsening foot infection. Patient found to be tachycardic upon arrival. Patient was administered 1 L of lactated Ringer's as the patient appeared to be in pain volume overloaded state. Laboratory studies obtained revealing WBC of 11.4 CMP reveals sodium 136, potassium 4 1 lactic acid was 2.8. Patient was started on IV clindamycin and started on 130 cc/h of maintenance fluids. Patient admitted to the hospital with infectious disease consultation. Case was discussed with Dr. Law who is excepted of the admission. Undiagnosed new problem with uncertain prognosis? @ -No Drug Therapy requiring intensive monitoring for toxicity (Heparin, Nitro, Insulin, Cardizem)? @ -No Were any procedures done? @ -No Diagnosis/symptom? @ -Cellulitis Acute, or Chronic, or Acute on Chronic? @ -Acute Uncomplicated (without systemic symptoms) or Complicated (systemic symptoms)? @ -Uncomplicated Side effects of treatment? @ -No Exacerbation, Progression, or Severe Exacerbation? @ -No Poses a threat to life or bodily function? How? (Chest pain, [place], NJ, pneumonia, PE, COPD, DKA, ARF, appy, cholecystitis, CVA, Diverticulitis, Homicidal, Suicidal, threat to staff... and all critical care pts) @ -No 3 - Lab Data Result diagrams: 10/22/24 04:35 10/22/24 04:35 Lab Results 10/15/24 10/15/24 10/15/24 Range/Units 22:23 22:23 22:23 WBC 11.47 H (4.50-10.00) 10*3/uL RBC 4.15 (4.10-5.20) 10*6/uL Hgb 11.4 L (12.0-15.0) g/dL Hct 35.4 L (37.2-46.3) % MCV 85.3 (80.0-97.0) fL MCH 27.5 (27.0-32.0) pg MCHC 32.2 (32.0-37.0) g/dL Plt Count 379 (140-440) 10*3/uL MPV 8.8 L (9.5-12.2) fL Immature Gran % (Auto) 0.4 % Neutrophils % 89.0 % Lymphocytes % 3.6 % Monocytes % 3.6 % Eosinophils % 3.1 % Basophils % 0.3 % Immature Gran # 0.05 H (0.00-0.04) 10*3/uL Neutrophils # 10.22 H (1.80-7.70) 10*3/uL Lymphocytes # 0.41 L (0.90-5.00) 10*3/uL Monocytes # 0.41 (0.20-1.00) 10*3/uL Eosinophils # 0.35 (0.04-0.35) 10*3/uL Basophils # 0.03 (0.00-0.10) 10*3/uL Sodium 136 L (137-145) mmol/L Potassium 4.1 (3.5-5.1) mmol/L Chloride 101 (98-107) mmol/L Carbon Dioxide 21 L (22-30) mmol/L Anion Gap 14 mmol/L BUN 9 (7-17) mg/dL Creatinine 0.77 (0.52-1.04) mg/dL Est GFR (CKD-EPI)AfAm >90 (>60 ml/min/1.73 sqM) Est GFR (CKD-EPI)NonAf >90 (>60 ml/min/1.73 sqM) Glucose 171 H (74-99) mg/dL Lactic Ac Sepsis Rflx Plasma Lactic Acid Akshat 2.8 H* (0.7-2.0) mmol/L Calcium 9.2 (8.4-10.2) mg/dL Total Bilirubin 0.5 (0.2-1.3) mg/dL AST 19 (14-36) U/L ALT 15 (4-34) U/L Alkaline Phosphatase 68 (38-126) U/L Total Protein 6.1 L (6.3-8.2) g/dL Albumin 3.5 (3.5-5.0) g/dL 10/15/24 Range/Units 23:24 WBC (4.50-10.00) 10*3/uL RBC (4.10-5.20) 10*6/uL Hgb (12.0-15.0) g/dL Hct (37.2-46.3) % MCV (80.0-97.0) fL MCH (27.0-32.0) pg MCHC (32.0-37.0) g/dL Plt Count (140-440) 10*3/uL MPV (9.5-12.2) fL Immature Gran % (Auto) % Neutrophils % % Lymphocytes % % Monocytes % % Eosinophils % % Basophils % % Immature Gran # (0.00-0.04) 10*3/uL Neutrophils # (1.80-7.70) 10*3/uL Lymphocytes # (0.90-5.00) 10*3/uL Monocytes # (0.20-1.00) 10*3/uL Eosinophils # (0.04-0.35) 10*3/uL Basophils # (0.00-0.10) 10*3/uL Sodium (137-145) mmol/L Potassium (3.5-5.1) mmol/L Chloride (98-107) mmol/L Carbon Dioxide (22-30) mmol/L Anion Gap mmol/L BUN (7-17) mg/dL Creatinine (0.52-1.04) mg/dL Est GFR (CKD-EPI)AfAm (>60 ml/min/1.73 sqM) Est GFR (CKD-EPI)NonAf (>60 ml/min/1.73 sqM) Glucose (74-99) mg/dL Lactic Ac Sepsis Rflx Y Plasma Lactic Acid Akshat (0.7-2.0) mmol/L Calcium (8.4-10.2) mg/dL Total Bilirubin (0.2-1.3) mg/dL AST (14-36) U/L ALT (4-34) U/L Alkaline Phosphatase (38-126) U/L Total Protein (6.3-8.2) g/dL Albumin (3.5-5.0) g/dL Disposition Clinical Impression: Cellulitis Disposition: ADMITTED IP TO THIS HOSP Condition: Stable Is patient prescribed a controlled substance at d/c from ED?: No
[2024-10-15 22:30] LABS: Basophils # (A) 0.03 10*3/uL (0.00-0.10); Basophils % (A) 0.3 %; Eosinophils # (A) 0.35 10*3/uL (0.04-0.35); Eosinophils % (A) 3.1 %; HCT 35.4 % (37.2-46.3); HGB 11.4 g/dL (12.0-15.0); Lymphocytes # (A) 0.41 10*3/uL (0.90-5.00); Lymphocytes % (A) 3.6 %; MCH 27.5 pg (27.0-32.0); MCHC 32.2 g/dL (32.0-37.0); MCV 85.3 fL (80.0-97.0); Monocytes # (A) 0.41 10*3/uL (0.20-1.00); Monocytes % (A) 3.6 %; Neutrophils # (A) 10.22 10*3/uL (1.80-7.70); Neutrophils % (A) 89.0 %; Platelet Count 379 10*3/uL (140-440); RBC 4.15 10*6/uL (4.10-5.20); RDW 14.4 % (11.5-14.5); WBC 11.47 10*3/uL (4.50-10.00)
[2024-10-15 22:41] LABS: ALT 15 U/L (4-34); AST 19 U/L (14-36); African American GFR (CKD) >90 (>60 ml/min/1.73 sqM); Albumin 3.5 g/dL (3.5-5.0); Alkaline Phosphatase 68 U/L (38-126); Anion Gap 14 mmol/L; Blood Urea Nitrogen 9 mg/dL (7-17); Calcium 9.2 mg/dL (8.4-10.2); Carbon Dioxide 21 mmol/L (22-30); Chloride 101 mmol/L (98-107); Glucose 171 mg/dL (74-99); Non-African American GFR(CKD) >90 (>60 ml/min/1.73 sqM); Potassium 4.1 mmol/L (3.5-5.1); Sodium 136 mmol/L (137-145); Total Protein 6.1 g/dL (6.3-8.2)
[2024-10-15] MEDS: IBUPROFEN 600 MG TAB PO STA (23:33)
[2024-10-15] MEDS: LACTATED RINGERS 1,000 ML IV ONE (23:33)
[2024-10-16] MEDS ORDERED: KETOROLAC 15 MG/ML 1 ML VIAL IVP PRN (00:12)
[2024-10-16] MEDS ORDERED: MORPHINE SULFATE 4 MG/ML SYRINGE IV PRN (00:12)
[2024-10-16] MEDS ORDERED: NALOXONE 0.4 MG/ML 1 ML VIAL IV PRN (00:12)
[2024-10-16] MEDS ORDERED: IBUPROFEN 400 MG TAB PO PRN (00:12)
[2024-10-16] MEDS: ONDANSETRON 4 MG/2 ML VIAL IVP STA (00:35)
[2024-10-16] MEDS: ACETAMINOPHEN IV (For NPO) 1,000 MG in EMPTY BAG 1 BAG IVPB STA (00:39)
[2024-10-16] MEDS: CLINDAMYCIN 600 MG in DEXTROSE 5% IN WATER 50 ML IVPB STA (00:58)
[2024-10-16] MEDS: LACTATED RINGERS 1,000 ML IV SCH (01:35)
[2024-10-16] MEDS: LACTATED RINGERS 1,000 ML IV ONE (01:42)
[2024-10-16 03:11] LABS: Glucose,Whole Blood 102 mg/dL (70-110)
[2024-10-16] MEDS ORDERED: LORazepam 0.5 MG TAB PO PRN (08:11)
[2024-10-16] MEDS: CLINDAMYCIN 600 MG in DEXTROSE 5% IN WATER 50 ML IVPB SCH (08:18)
--- NOTE | 2024-10-16 08:21 | P.HPIM ---
History of Present Illness H&P Date: 10/16/24 This is a 44-year-old female with a history of diabetes who presented to the emergency department with complaints of left toe and leg redness and infection. Patient was seen in the emergency room yesterday for the same complaint and sent home on oral clindamycin. She received 3 doses of clindamycin at home and then developed a fever so she presented back to the emergency department for further evaluation. Patient seen this morning sitting on side of bed. There is dry cracked skin noted on her third left toe, and erythema on the left foot and left lower osuna. Patient also reports an increase in swelling over the last several days. Patient denies any fever since admission. She has had some tachycardia. Further medical history as noted below. Review of Systems Constitutional: Reports fever, Denies chills Cardiovascular: Reports edema, Denies chest pain, Denies dyspnea on exertion Respiratory: Denies cough, Denies dyspnea Gastrointestinal: Denies abdominal pain, Denies nausea, Denies vomiting Musculoskeletal: Denies arm numbness/tingling, Denies leg numbness/tingling Integumentary: Reports as per HPI Neurological: Denies headaches, Denies weakness Past Medical History Past Medical History: Asthma, Diabetes Mellitus, Hyperlipidemia, Hypertension, Sleep Apnea/CPAP/BIPAP Additional Past Medical History / Comment(s): Type 2 diabetes requiring insulin. 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 History of Any Multi-Drug Resistant Organisms: None Reported Past Surgical History: Appendectomy, Section Additional Past Surgical History / Comment(s): bronchioplasty, moles removed Past Anesthesia/Blood Transfusion Reactions: No Reported Reaction Past Psychological History: Anxiety, Depression Smoking Status: Former smoker - Past Family History Mother Family Medical History: Cancer Additional Family Medical History / Comment(s): Skin cancer. Maternal grandmother Family Medical History: Cancer Additional Family Medical History / Comment(s): Breast, bone and skin cancer. The patient states her grandmother tested positive for a breast cancer gene. The patient's mother tested negative. Medications and Allergies Home Medications Medication Instructions Recorded Confirmed Type Albuterol Nebulized [Ventolin 2.5 mg INHALATION Q4H PRN 08/06/13 07/20/24 History Nebulized] Albuterol Sulfate [Ventolin HFA] 2 puff INHALATION Q4H PRN 08/06/13 07/20/24 History Budesonide/Formoterol Fumarate 2 puff INHALATION BID 08/06/13 07/20/24 History [Symbicort 160-4.5 Mcg Inhaler] Citalopram Hydrobromide [CeleXA] 40 mg PO HS 08/06/13 07/20/24 History Lisinopril-Hctz 20-12.5 mg 1 tab PO HS 08/06/13 07/20/24 History [Zestoretic 20-12.5] Omalizumab [Xolair] 300 mg SQ Q28D 08/06/13 07/20/24 History metFORMIN HCL [Glucophage] 1,000 mg PO BID 08/06/13 07/20/24 History LORazepam [Ativan] 0.5 mg PO BID PRN 12/10/13 07/20/24 History Atorvastatin [Lipitor] 40 mg PO HS 03/09/16 07/20/24 History Verapamil HCl [Verapamil ER] 360 mg PO HS 03/09/16 07/20/24 History risperiDONE [RisperDAL] 2 mg PO QAM 04/05/16 07/20/24 History Insulin Glargine,Hum.rec.anlog 45 unit SQ BID 04/01/20 07/20/24 History [Lantus Solostar Pen] Montelukast [Singulair] 10 mg PO HS 08/22/20 07/20/24 History Dapagliflozin Propanediol [Farxiga] 10 mg PO DAILY 07/02/21 07/20/24 History Insulin Aspart [NovoLOG Flexpen] 15 units SQ AC-TID 07/07/21 07/20/24 History Ezetimibe [Zetia] 10 mg PO DAILY 02/05/22 07/20/24 History Tirzepatide [Mounjaro] 10 mg SQ WEEKLY 04/02/22 07/20/24 History Aspirin 81 mg PO DAILY 04/20/22 07/20/24 History Ammonium Lactate Cream [Lac-Hydrin 1 applic TOPICAL DAILY 07/28/22 07/20/24 History 12% Cream] Empagliflozin [Jardiance] 25 mg PO DAILY 01/20/24 07/20/24 History Cephalexin [Keflex] 500 mg PO Q6HR #40 cap 10/14/24 Rx Sulfamethox-Tmp 800-160Mg [Bactrim 1 each PO Q12HR #20 tab 10/14/24 Rx Ds] clindamycin HCL 300 mg PO QID #40 cap 10/14/24 Rx Allergies Allergy/AdvReac Type Severity Reaction Status Date / Time Penicillins Allergy Rash/Hives Verified 10/15/24 21:06 Physical Exam Vitals: Vital Signs Temp Pulse Resp BP Pulse Ox 10/16/24 06:52 100/61 10/16/24 05:49 99/55 10/16/24 05:30 92/46 10/16/24 04:56 102 H 18 103/42 10/16/24 04:35 103/54 10/16/24 04:23 110/49 10/16/24 04:00 98 18 100/41 10/16/24 03:52 120/48 10/16/24 03:20 82/65 10/16/24 01:51 107/50 10/16/24 01:44 111 H 18 106/50 10/16/24 01:31 99 F 110 H 18 115/44 96 10/15/24 22:55 99.5 F 133 H 18 104/46 93 L 10/15/24 21:02 99.3 F 130 H 16 138/75 96 Intake and Output 10/15/24 10/16/24 10/16/24 22:59 06:59 14:59 Other: Weight 107.501 kg - Constitutional General appearance: cooperative, no acute distress - EENT Eyes: PERRLA - Neck Neck: no lymphadenopathy, normal ROM, no rigidity - Respiratory Respiratory: bilateral: CTA - Cardiovascular Heart sounds: normal: S1, S2 - Gastrointestinal General gastrointestinal: soft, no tenderness - Integumentary dry cracked skin to left third toe Integumentary: cellulitis - Psychiatric Psychiatric: A&O x's 3 Results CBC & Chem 7: 10/15/24 22:23 10/15/24 22:23 Labs: Abnormal Lab Results - Last 24 Hours (Table) 10/15/24 10/15/24 10/15/24 Range/Units 22:23 22:23 22:23 WBC 11.47 H (4.50-10.00) 10*3/uL Hgb 11.4 L (12.0-15.0) g/dL Hct 35.4 L (37.2-46.3) % MPV 8.8 L (9.5-12.2) fL Immature Gran # 0.05 H (0.00-0.04) 10*3/uL Neutrophils # 10.22 H (1.80-7.70) 10*3/uL Lymphocytes # 0.41 L (0.90-5.00) 10*3/uL Sodium 136 L (137-145) mmol/L Carbon Dioxide 21 L (22-30) mmol/L Glucose 171 H (74-99) mg/dL Plasma Lactic Acid Akshat 2.8 H* (0.7-2.0) mmol/L Total Protein 6.1 L (6.3-8.2) g/dL 10/16/24 Range/Units 01:43 WBC (4.50-10.00) 10*3/uL Hgb (12.0-15.0) g/dL Hct (37.2-46.3) % MPV (9.5-12.2) fL Immature Gran # (0.00-0.04) 10*3/uL Neutrophils # (1.80-7.70) 10*3/uL Lymphocytes # (0.90-5.00) 10*3/uL Sodium (137-145) mmol/L Carbon Dioxide (22-30) mmol/L Glucose (74-99) mg/dL Plasma Lactic Acid Akshat 2.6 H* (0.7-2.0) mmol/L Total Protein (6.3-8.2) g/dL Assessment and Plan (1) Cellulitis Current Visit: Yes Status: Acute Code(s): L03.90 - CELLULITIS, UNSPECIFIED SNOMED Code(s): 000092127 (2) Type 2 diabetes mellitus Current Visit: Yes Status: Acute Code(s): E11.9 - TYPE 2 DIABETES MELLITUS WITHOUT COMPLICATIONS SNOMED Code(s): 22846979 (3) Asthma Current Visit: Yes Status: Acute Code(s): J45.909 - UNSPECIFIED ASTHMA, UNCOMPLICATED SNOMED Code(s): 946870027 (4) Hypertension Current Visit: Yes Status: Acute Code(s): I10 - ESSENTIAL (PRIMARY) HYPERTENSION SNOMED Code(s): 84440680 (5) Hyperlipemia Current Visit: Yes Status: Acute Code(s): E78.5 - HYPERLIPIDEMIA, UNSPECIFIED SNOMED Code(s): 22784036 Plan: Home medications reconciled. Order Accu-Cheks. Appreciate infectious disease input. Check CBC and CMP in the morning. Patient seen and evaluated by nurse practitioner, physician in agreement with plan.
[2024-10-16 08:27] LABS: Glucose,Whole Blood 161 mg/dL (70-110)
[2024-10-16] MEDS: SYMBICORT 160-4.5 MCG INHALER INHALATION SCH (08:50)
[2024-10-16] MEDS: NON FORMULARY DRUG (Tirzepatide [Mounjaro] 7.5 MG/0.5 ML Pen.Injctr) SQ SCH (08:52)
[2024-10-16] MEDS ORDERED: EZETIMIBE 10 MG TAB PO SCH (09:00)
[2024-10-16] MEDS ORDERED: INSULIN GLARGINE (LANTUS) 100 UNIT/ML SYR SQ SCH (09:00)
[2024-10-16] MEDS ORDERED: NON FORMULARY DRUG (Empagliflozin [Jardiance] 25 MG Tablet) PO SCH (09:00)
[2024-10-16] MEDS: metFORMIN 500 MG TAB PO SCH (10:26)
[2024-10-16] MEDS: LORazepam 0.5 MG TAB PO SCH (10:27)
[2024-10-16] MEDS: CITALOPRAM HYDROBROMIDE 20 MG TAB PO SCH (10:27)
[2024-10-16] MEDS: MONTELUKAST 10 MG TAB PO SCH (10:27)
[2024-10-16] MEDS: ASPIRIN 81 MG PO SCH (10:28)
[2024-10-16] MEDS: LISINOPRIL-HCTZ 20-12.5 MG 1 EACH TAB PO SCH (10:28)
[2024-10-16] MEDS: risperiDONE 1 MG TAB PO SCH (10:28)
[2024-10-16] MEDS: DAPAGLIFLOZIN PROPANEDIOL 10 MG TABLET PO SCH (10:28)
[2024-10-16] MEDS: VERAPAMIL SR 180 MG TABLET.ER PO SCH (10:29)
[2024-10-16] MEDS: INSULIN GLARGINE (LANTUS) 100 UNIT/ML SYR SQ SCH (10:29)
[2024-10-16] MEDS ORDERED: NON FORMULARY DRUG (Insulin Aspart [Novolog Flexpen] 100 UNIT/ML Insuln.Pen) SQ SCH (12:30)
[2024-10-16 12:38] LABS: Glucose,Whole Blood 106 mg/dL (70-110)
[2024-10-16] MEDS: INSULIN LISPRO (HumaLOG) 100 UNIT/ML 10 mL VL SQ SCH (12:40)
[2024-10-16] MEDS ORDERED: VANCOMYCIN IV PER PHARMACY 1 EACH MISC MISCELLANE PRN (16:03)
[2024-10-16] MEDS: ACETAMINOPHEN TAB 325 MG TAB PO PRN (17:02)
[2024-10-16 17:14] LABS: Glucose,Whole Blood 135 mg/dL (70-110)
[2024-10-16] MEDS: VANCOMYCIN 1,750 MG in SODIUM CHLORIDE 0.9% 500 ML 500 ML IVPB ONE (17:15)
[2024-10-16 20:02] LABS: Glucose,Whole Blood 159 mg/dL (70-110)
[2024-10-16] MEDS: ATORVASTATIN 40 MG TAB PO SCH (21:19)
[2024-10-16] MEDS: EZETIMIBE 10 MG TAB PO SCH (21:20)
[2024-10-16] MEDS: ALBUTEROL NEBULIZED 2.5 MG/3 ML INHALATION PRN (22:15)
--- NOTE | 2024-10-16 22:43 | P.CONS ---
History of Present Illness - Reason for Consult Consult date: 10/16/24 Cellulitis Requesting physician: Geovanna Goode - Chief Complaint Left leg swelling and redness x few days - History of Present Illness Patient is a 44-year-old female with a past medical history significant for Asthma, Diabetes Mellitus, Hyperlipidemia, Hypertension, Sleep Apnea/CPAP/BIPAP presented hospital for evaluation of increasing swelling and redness to the left lower extremity patient was evaluated in the ER 2 days ago at that point the patient was diagnosed with a cellulitis and was discharged home on oral clindamycin and Bactrim DS which the patient has taken for 2 days without any improvement patient mention she did notice a callus on the dorsal aspect of her left third toe with the patient tried to debride it herself and subsequently patient noted to have increasing swelling redness and pain to the left lower extremity patient described the pain to be mostly sharp dull aching moderate intense without radiation with associated swelling and redness denies high-grade fever on presentation to the hospital the patient did have low-grade fever of 99.3 patient was tachycardic mildly hypotensive but not requiring any pressor support patient did have a white count of 11.47 creatinine 0.77 lactic acid was 2.8 liver enzymes are normal patient was started on IV clindamycin admitted to hospital infectious disease was consulted for further management of antibiotic therapy Review of Systems Positive point and negatives has been mentioned in the HPI, complete review of systems was performed and all other systems are negative Past Medical History Past Medical History: Asthma, Diabetes Mellitus, Hyperlipidemia, Hypertension, Sleep Apnea/CPAP/BIPAP Additional Past Medical History / Comment(s): Type 2 diabetes requiring insulin. 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 History of Any Multi-Drug Resistant Organisms: None Reported Past Surgical History: Appendectomy, Section Additional Past Surgical History / Comment(s): bronchioplasty, moles removed Past Anesthesia/Blood Transfusion Reactions: No Reported Reaction Past Psychological History: Anxiety, Depression Smoking Status: Former smoker - Past Family History Mother Family Medical History: Cancer Additional Family Medical History / Comment(s): Skin cancer. Maternal grandmother Family Medical History: Cancer Additional Family Medical History / Comment(s): Breast, bone and skin cancer. The patient states her grandmother tested positive for a breast cancer gene. The patient's mother tested negative. Medications and Allergies Home Medications Medication Instructions Recorded Confirmed Type Albuterol Nebulized [Ventolin 2.5 mg INHALATION RT-Q4H PRN 08/06/13 10/16/24 History Nebulized] Albuterol Sulfate [Ventolin HFA] 1 - 2 puff INHALATION RT-Q6H PRN 08/06/13 10/16/24 History Budesonide/Formoterol Fumarate 2 puff INHALATION RT-BID 08/06/13 10/16/24 History [Symbicort 160-4.5 Mcg Inhaler] Citalopram Hydrobromide [CeleXA] 40 mg PO DAILY 08/06/13 10/16/24 History Lisinopril-Hctz 20-12.5 mg 1 tab PO DAILY 08/06/13 10/16/24 History [Zestoretic 20-12.5] metFORMIN HCL [Glucophage] 1,000 mg PO BID 08/06/13 10/16/24 History LORazepam [Ativan] 0.5 mg PO TID 12/10/13 10/16/24 History Atorvastatin [Lipitor] 40 mg PO HS 03/09/16 10/16/24 History risperiDONE [RisperDAL] 1 mg PO BID 04/05/16 10/16/24 History Insulin Glargine,Hum.rec.anlog 30 unit SQ BID 04/01/20 10/16/24 History [Lantus Solostar Pen] Montelukast [Singulair] 10 mg PO DAILY 08/22/20 10/16/24 History Insulin Aspart [NovoLOG Flexpen] 7 - 8 units SQ AC-TID 07/07/21 10/16/24 History Ezetimibe [Zetia] 10 mg PO HS 02/05/22 10/16/24 History Ammonium Lactate Cream [Lac-Hydrin 1 applic TOPICAL HS 07/28/22 10/16/24 History 12% Cream] Empagliflozin [Jardiance] 25 mg PO DAILY 01/20/24 10/16/24 History Sulfamethox-Tmp 800-160Mg [Bactrim 1 each PO Q12HR #20 tab 10/14/24 10/16/24 Rx Ds] clindamycin HCL 300 mg PO QID #40 cap 10/14/24 10/16/24 Rx Hydrocortisone Cream 1 applic TOPICAL DAILY PRN 10/16/24 10/16/24 History [Hydrocortisone 2.5% Cream] Ketoconazole 2% Cream [Nizoral 2%] 1 applic TOPICAL BID PRN 10/16/24 10/16/24 History Tirzepatide [Mounjaro] 10 mg SQ SHEARER 10/16/24 10/16/24 History Verapamil HCl [Verelan] 360 mg PO DAILY 10/16/24 10/16/24 History Allergies Allergy/AdvReac Type Severity Reaction Status Date / Time Penicillins Allergy Rash/Hives Verified 10/16/24 08:48 Physical Exam Vitals: Vital Signs Temp Pulse Resp BP Pulse Ox 10/16/24 10:34 115 H 20 126/91 97 10/16/24 08:53 95 10/16/24 08:21 110 H 20 106/53 98 10/16/24 06:52 100/61 10/16/24 05:49 99/55 10/16/24 05:30 92/46 10/16/24 04:56 102 H 18 103/42 10/16/24 04:35 103/54 10/16/24 04:23 110/49 10/16/24 04:00 98 18 100/41 10/16/24 03:52 120/48 10/16/24 03:20 82/65 10/16/24 01:51 107/50 10/16/24 01:44 111 H 18 106/50 10/16/24 01:31 99 F 110 H 18 115/44 96 10/15/24 22:55 99.5 F 133 H 18 104/46 93 L 10/15/24 21:02 99.3 F 130 H 16 138/75 96 Intake and Output 10/15/24 10/16/24 10/16/24 22:59 06:59 14:59 Other: Weight 107.501 kg GENERAL DESCRIPTION: Middle-age female lying in bed, no distress. No tachypnea or accessory muscle of respiration use. HEENT: Shows Pallor , no scleral icterus. Oral mucous membrane is dry. No pharyngeal erythema or thrush NECK: Trachea central, no thyromegaly. LUNGS: Unlabored breathing. Clear to auscultation anteriorly. No wheeze or crackle. HEART: S1, S2, regular rate and rhythm. No loud murmur ABDOMEN: Soft, no tenderness , guarding or rigidity, no organomegaly EXTREMITIES: Left lower extremity with swelling and redness in this patient with a pustule on the plantar aspect of the left third toe SKIN: No rash, no masses palpable. NEUROLOGICAL: The patient is awake, alert, oriented x3, mood and affect normal. Results CBC & Chem 7: 10/15/24 22:23 10/15/24 22:23 Labs: Abnormal Lab Results - Last 24 Hours (Table) 10/15/24 10/15/24 10/15/24 Range/Units 22:23 22:23 22:23 WBC 11.47 H (4.50-10.00) 10*3/uL Hgb 11.4 L (12.0-15.0) g/dL Hct 35.4 L (37.2-46.3) % MPV 8.8 L (9.5-12.2) fL Immature Gran # 0.05 H (0.00-0.04) 10*3/uL Neutrophils # 10.22 H (1.80-7.70) 10*3/uL Lymphocytes # 0.41 L (0.90-5.00) 10*3/uL Sodium 136 L (137-145) mmol/L Carbon Dioxide 21 L (22-30) mmol/L Glucose 171 H (74-99) mg/dL POC Glucose (mg/dL) (70-110) mg/dL Plasma Lactic Acid Akshat 2.8 H* (0.7-2.0) mmol/L Total Protein 6.1 L (6.3-8.2) g/dL 10/16/24 10/16/24 Range/Units 01:43 08:26 WBC (4.50-10.00) 10*3/uL Hgb (12.0-15.0) g/dL Hct (37.2-46.3) % MPV (9.5-12.2) fL Immature Gran # (0.00-0.04) 10*3/uL Neutrophils # (1.80-7.70) 10*3/uL Lymphocytes # (0.90-5.00) 10*3/uL Sodium (137-145) mmol/L Carbon Dioxide (22-30) mmol/L Glucose (74-99) mg/dL POC Glucose (mg/dL) 161 H (70-110) mg/dL Plasma Lactic Acid Akshat 2.6 H* (0.7-2.0) mmol/L Total Protein (6.3-8.2) g/dL Assessment and Plan (1) Sepsis Current Visit: Yes Status: Acute Code(s): A41.9 - SEPSIS, UNSPECIFIED OR GANISM SNOMED Code(s): 26569098 (2) Left leg cellulitis Current Visit: Yes Status: Acute Code(s): L03.116 - CELLULITIS OF LEFT LOWER LIMB SNOMED Code(s): 98068879289441615 (3) Abscess of third toe, left Current Visit: Yes Status: Acute Code(s): L02.612 - CUTANEOUS ABSCESS OF LEFT FOOT SNOMED Code(s): 26515688432989655 (4) Penicillin allergy Current Visit: Yes Status: Acute Code(s): Z88.0 - ALLERGY STATUS TO PENICILLIN SNOMED Code(s): 12698356 (5) Failure of outpatient treatment Current Visit: Yes Status: Acute Code(s): Z78.9 - OTHER SPECIFIED HEALTH STATUS SNOMED Code(s): 221621298 Plan: 1patient presented hospital increasing swelling redness of left lower extremity in this patient who did debride callus to the left that toe and now developing an abscess likely the source of cellulitis to the left lower extremity likely from gram-positive skin justino failing outpatient oral clindamycin therapy 2patient did have features of sepsis on presentation to the hospital with tachycardia elevated white count and low-grade fever source is a left third toe abscess and left leg cellulitis 3-discontinue clindamycin 4-we will start the patient on vancomycin pharmacy to dose target trough of 15 while watching kidney function and Vanco trough closely 5-vascular surgery evaluation for drainage of the abscess and deep culture We will follow on clinical condition and cultures to further adjust medication if needed Thank you for this consultation we will follow the patient along with you Dictation was produced using [employer] dictation software. please excuse any grammatical, word or spelling errors. Time with Patient: Greater than 30
[2024-10-17] MEDS: diphenhydrAMINE 25 MG CAP PO STA ×2 (00:54→23:52)
[2024-10-17] MEDS: VANCOMYCIN 1,750 MG in SODIUM CHLORIDE 0.9% 500 ML 500 ML IVPB SCH (00:54)
[2024-10-17] MEDS: ONDANSETRON 4 MG/2 ML VIAL IVP PRN (01:04)
[2024-10-17 06:23] LABS: Glucose,Whole Blood 116 mg/dL (70-110)
--- NOTE | 2024-10-17 07:21 | P.GSCN ---
History of Present Illness History of present illness: 44-year-old white emergency room with history of cellulitis of the foot and lower extremity history of sleep apnea hypertension patient has been admitted IV antibiotic no fever or chills present this morning Medical history history of hypertension sleep apnea diabetes Examination neck is supple no bruit Chest clear good air entry both lung. Second sound abdomen soft nontender vascular femorals are 1+ foot and lower extremity has some cellulitis third toe callus noted on the distal fifth phalanx Patient on IV antibiotic which will be continued we will follow with you any drainage or procedure for debridement Past Medical History Past Medical History: Asthma, Diabetes Mellitus, Hyperlipidemia, Hypertension, Sleep Apnea/CPAP/BIPAP Additional Past Medical History / Comment(s): Type 2 diabetes requiring insulin. 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 History of Any Multi-Drug Resistant Organisms: None Reported Past Surgical History: Appendectomy, Section Additional Past Surgical History / Comment(s): bronchioplasty, moles removed Past Anesthesia/Blood Transfusion Reactions: No Reported Reaction Past Psychological History: Anxiety, Depression Smoking Status: Former smoker - Past Family History Mother Family Medical History: Cancer Additional Family Medical History / Comment(s): Skin cancer. Maternal grandmother Family Medical History: Cancer Additional Family Medical History / Comment(s): Breast, bone and skin cancer. The patient states her grandmother tested positive for a breast cancer gene. The patient's mother tested negative. Medications and Allergies Home Medications Medication Instructions Recorded Confirmed Type Albuterol Nebulized [Ventolin 2.5 mg INHALATION RT-Q4H PRN 08/06/13 10/16/24 History Nebulized] Albuterol Sulfate [Ventolin HFA] 1 - 2 puff INHALATION RT-Q6H PRN 08/06/13 10/16/24 History Budesonide/Formoterol Fumarate 2 puff INHALATION RT-BID 08/06/13 10/16/24 History [Symbicort 160-4.5 Mcg Inhaler] Citalopram Hydrobromide [CeleXA] 40 mg PO DAILY 08/06/13 10/16/24 History Lisinopril-Hctz 20-12.5 mg 1 tab PO DAILY 08/06/13 10/16/24 History [Zestoretic 20-12.5] metFORMIN HCL [Glucophage] 1,000 mg PO BID 08/06/13 10/16/24 History LORazepam [Ativan] 0.5 mg PO TID 12/10/13 10/16/24 History Atorvastatin [Lipitor] 40 mg PO HS 03/09/16 10/16/24 History risperiDONE [RisperDAL] 1 mg PO BID 04/05/16 10/16/24 History Insulin Glargine,Hum.rec.anlog 30 unit SQ BID 04/01/20 10/16/24 History [Lantus Solostar Pen] Montelukast [Singulair] 10 mg PO DAILY 08/22/20 10/16/24 History Insulin Aspart [NovoLOG Flexpen] 7 - 8 units SQ AC-TID 07/07/21 10/16/24 History Ezetimibe [Zetia] 10 mg PO HS 02/05/22 10/16/24 History Ammonium Lactate Cream [Lac-Hydrin 1 applic TOPICAL HS 07/28/22 10/16/24 History 12% Cream] Empagliflozin [Jardiance] 25 mg PO DAILY 01/20/24 10/16/24 History Sulfamethox-Tmp 800-160Mg [Bactrim 1 each PO Q12HR #20 tab 10/14/24 10/16/24 Rx Ds] clindamycin HCL 300 mg PO QID #40 cap 10/14/24 10/16/24 Rx Hydrocortisone Cream 1 applic TOPICAL DAILY PRN 10/16/24 10/16/24 History [Hydrocortisone 2.5% Cream] Ketoconazole 2% Cream [Nizoral 2%] 1 applic TOPICAL BID PRN 10/16/24 10/16/24 History Tirzepatide [Mounjaro] 10 mg SQ SHEARER 10/16/24 10/16/24 History Verapamil HCl [Verelan] 360 mg PO DAILY 10/16/24 10/16/24 History Allergies Allergy/AdvReac Type Severity Reaction Status Date / Time Penicillins Allergy Rash/Hives Verified 10/16/24 08:48 Surgical - Exam Vital Signs Temp Pulse Resp BP Pulse Ox 99.3 F 130 H 16 138/75 96 10/15/24 21:02 10/15/24 21:02 10/15/24 21:02 10/15/24 21:02 10/15/24 21:02 Results - Labs 10/15/24 22:23 10/15/24 22:23 Abnormal Lab Results - Last 24 Hours (Table) 10/16/24 10/16/24 10/16/24 Range/Units 08:26 17:13 20:01 POC Glucose (mg/dL) 161 H 135 H 159 H (70-110) mg/dL 10/17/24 Range/Units 06:22 POC Glucose (mg/dL) 116 H (70-110) mg/dL
[2024-10-17 07:54] LABS: HCT 29.1 % (37.2-46.3); HGB 9.3 g/dL (12.0-15.0); MCH 27.3 pg (27.0-32.0); MCHC 32.0 g/dL (32.0-37.0); MCV 85.3 FL (80.0-97.0); NRBC Per 100 WBC 0 X 10*3/uL (0.00-0.01); Platelet Count 413 X 10*3/uL (140-440); RBC 3.41 X 10*6/uL (4.10-5.20); RDW 15.2 % (11.5-14.5); WBC 9.79 X 10*3/uL (4.50-10.00)
[2024-10-17 08:13] LABS: ALT 14 U/L (8-44); AST 12 U/L (13-35); Albumin 3.1 g/dL (3.8-4.9); Albumin/Globulin Ratio 1.41 Ratio (1.60-3.17); Alkaline Phosphatase 59 U/L (41-126); Anion Gap 10.40 mmol/L (4.00-12.00); BUN/Creat Ratio 13.71 Ratio (12.00-20.00); Blood Urea Nitrogen 9.6 mg/dL (9.0-27.0); Calcium 8.4 mg/dL (8.7-10.3); Carbon Dioxide 22.6 mmol/L (21.6-31.8); Chloride 102 mmol/L (96-109); Globulin 2.2 g/dL (1.6-3.3); Glucose 102 mg/dL (70-110); Potassium 4.0 mmol/L (3.5-5.5); Sodium 135 mmol/L (135-145); Total Protein 5.3 g/dL (6.2-8.2)
--- NOTE | 2024-10-17 09:01 | P.PN ---
Subjective Progress Note Date: 10/17/24 Principal diagnosis: Foot infection in a diabetic. Element of sepsis. The patient is a 44-year-old white female with known history of insulin- dependent diabetes who is coming in for cellulitis and foot infection. The patient has had infectious disease and surgical consult. She still remains tachycardic. Tolerating appropriate fluid and voiding nominally. Edema is improved. Objective - Vital Signs Vital signs: Vital Signs Temp 98.7 F 10/17/24 07:33 Pulse 115 H 10/17/24 07:33 Resp 18 10/17/24 07:33 BP 102/52 10/17/24 07:33 Pulse Ox 93 L 10/17/24 07:33 FiO2 Intake & Output 10/16/24 10/17/24 10/17/24 18:59 06:59 18:59 Intake Total 0 Balance 0 Weight 107.501 kg Intake: Intake, IV Titration 0 Amount Lactated Ringers 1,000 ml 0 @ 125 mls/hr IV .Q8H [facility] Rx#:[id number] Other: Voiding Method Toilet # Voids 2 - EENT Eyes: Present: anicteric sclerae - Neck Neck: Absent: lymphadenopathy - Respiratory Respiratory: bilateral: diminished - Cardiovascular Heart rate: 115 Rhythm: regular - Gastrointestinal General gastrointestinal: Present: soft. Absent: tenderness - Integumentary Integumentary: Present: cellulitis - Neurologic Neurologic: Present: CNII-XII intact - Musculoskeletal Musculoskeletal: Absent: generalized weakness - Psychiatric Psychiatric: Present: A&O x's 3 - Labs CBC & Chem 7: 10/17/24 04:58 10/17/24 04:58 Labs: Abnormal Lab Results - Last 24 Hours (Table) 10/16/24 10/16/24 10/17/24 Range/Units 17:13 20:01 04:58 RBC 3.41 L (4.10-5.20) X 10*6/uL Hgb 9.3 L (12.0-15.0) g/dL Hct 29.1 L (37.2-46.3) % RDW 15.2 H (11.5-14.5) % MPV 9.2 L (9.5-12.2) FL POC Glucose (mg/dL) 135 H 159 H (70-110) mg/dL Calcium (8.7-10.3) mg/dL Total Bilirubin (0.3-1.2) mg/dL AST (13-35) U/L Total Protein (6.2-8.2) g/dL Albumin (3.8-4.9) g/dL Albumin/Globulin Ratio (1.60-3.17) Ratio 10/17/24 10/17/24 Range/Units 04:58 06:22 RBC (4.10-5.20) X 10*6/uL Hgb (12.0-15.0) g/dL Hct (37.2-46.3) % RDW (11.5-14.5) % MPV (9.5-12.2) FL POC Glucose (mg/dL) 116 H (70-110) mg/dL Calcium 8.4 L (8.7-10.3) mg/dL Total Bilirubin 0.2 L (0.3-1.2) mg/dL AST 12 L (13-35) U/L Total Protein 5.3 L (6.2-8.2) g/dL Albumin 3.1 L (3.8-4.9) g/dL Albumin/Globulin Ratio 1.41 L (1.60-3.17) Ratio Assessment and Plan (1) Abscess of third toe, left Current Visit: Yes Status: Acute Code(s): L02.612 - CUTANEOUS ABSCESS OF LEFT FOOT SNOMED Code(s): 76963803802408630 (2) Asthma Current Visit: Yes Status: Acute Code(s): J45.909 - UNSPECIFIED ASTHMA, UNCOMPLICATED SNOMED Code(s): 258563154 (3) Cellulitis Current Visit: Yes Status: Acute Code(s): L03.90 - CELLULITIS, UNSPECIFIED SNOMED Code(s): 534753661 (4) Failure of outpatient treatment Current Visit: Yes Status: Acute Code(s): Z78.9 - OTHER SPECIFIED HEALTH STATUS SNOMED Code(s): 767379379 (5) Left leg cellulitis Current Visit: Yes Status: Acute Code(s): L03.116 - CELLULITIS OF LEFT LOWER LIMB SNOMED Code(s): 61269825820902114 (6) Type 2 diabetes mellitus Current Visit: Yes Status: Acute Code(s): E11.9 - TYPE 2 DIABETES MELLITUS WITHOUT COMPLICATIONS SNOMED Code(s): 40473953 Plan: Continue current regimen of treatment. Tachycardia I do suspect is related to sepsis. Check CBC and CMP in AM. Appreciate multiple consultants input. Culture pending
[2024-10-17 12:33] LABS: Glucose,Whole Blood 127 mg/dL (70-110)
[2024-10-17 17:27] LABS: Glucose,Whole Blood 110 mg/dL (70-110)
[2024-10-17 20:31] LABS: Glucose,Whole Blood 129 mg/dL (70-110)
[2024-10-17] MEDS: FAMOTIDINE 20 MG/2 ML VIAL IV STA (23:52)
[2024-10-17] MEDS: LORATADINE 10 MG TAB PO STA (23:52)
[2024-10-18 06:13] LABS: Glucose,Whole Blood 117 mg/dL (70-110)
[2024-10-18 07:55] LABS: HCT 28.9 % (37.2-46.3); HGB 9.0 g/dL (12.0-15.0); MCH 27.3 pg (27.0-32.0); MCHC 31.1 g/dL (32.0-37.0); MCV 87.6 FL (80.0-97.0); NRBC Per 100 WBC 0 X 10*3/uL (0.00-0.01); Platelet Count 369 X 10*3/uL (140-440); RBC 3.30 X 10*6/uL (4.10-5.20); RDW 14.8 % (11.5-14.5); WBC 8.27 X 10*3/uL (4.50-10.00)
[2024-10-18 08:06] LABS: ALT 16 U/L (8-44); AST 14 U/L (13-35); Albumin 3.3 g/dL (3.8-4.9); Albumin/Globulin Ratio 1.65 Ratio (1.60-3.17); Alkaline Phosphatase 61 U/L (41-126); Anion Gap 12.60 mmol/L (4.00-12.00); BUN/Creat Ratio 16.60 Ratio (12.00-20.00); Blood Urea Nitrogen 8.3 mg/dL (9.0-27.0); Calcium 8.6 mg/dL (8.7-10.3); Carbon Dioxide 24.4 mmol/L (21.6-31.8); Chloride 104 mmol/L (96-109); Globulin 2.0 g/dL (1.6-3.3); Glucose 96 mg/dL (70-110); Potassium 4.0 mmol/L (3.5-5.5); Sodium 141 mmol/L (135-145); Total Protein 5.3 g/dL (6.2-8.2)
--- NOTE | 2024-10-18 08:34 | P.PN ---
Subjective Progress Note Date: 10/18/24 This is a 44-year-old female with a history of diabetes who presented to the emergency department with complaints of left toe and leg redness and infection. Patient was seen in the emergency room yesterday for the same complaint and sent home on oral clindamycin. She received 3 doses of clindamycin at home and then developed a fever so she presented back to the emergency department for further evaluation. Patient seen this morning sitting on side of bed. There is dry cracked skin noted on her third left toe, and erythema on the left foot and left lower osuna. Patient also reports an increase in swelling over the last several days. Patient denies any fever since admission. She has had some tachycardia. 10/18/2024 Patient seen this morning sitting on side of bed eating breakfast. She reports her swelling has improved since yesterday. Her tachycardia is also improving. She remains on vancomycin. Objective - Vital Signs Vital signs: Vital Signs Temp 98.2 F 10/18/24 07:18 Pulse 97 10/18/24 07:18 Resp 18 10/18/24 07:18 BP 119/75 10/18/24 07:18 Pulse Ox 94 L 10/18/24 07:18 FiO2 Intake & Output 10/17/24 10/18/24 10/18/24 18:59 06:59 18:59 Intake Total 598 Balance 598 Intake: Oral 598 Other: Voiding Method Toilet Toilet # Voids 2 3 - Constitutional General appearance: Present: cooperative, no acute distress - EENT Eyes: Present: PERRLA - Neck Neck: Present: normal ROM. Absent: lymphadenopathy, rigidity - Respiratory Respiratory: bilateral: CTA - Cardiovascular Heart sounds: normal: S1, S2 - Gastrointestinal General gastrointestinal: Present: soft. Absent: tenderness - Integumentary Integumentary Comment(s): Sharad wrap to left lower leg and left foot, clean dry and intact - Psychiatric Psychiatric: Present: A&O x's 3 - Labs CBC & Chem 7: 10/18/24 03:54 10/18/24 03:54 Labs: Abnormal Lab Results - Last 24 Hours (Table) 10/17/24 10/17/24 10/18/24 Range/Units 12:31 20:29 03:54 RBC 3.30 L (4.10-5.20) X 10*6/uL Hgb 9.0 L (12.0-15.0) g/dL Hct 28.9 L (37.2-46.3) % MCHC 31.1 L (32.0-37.0) g/dL RDW 14.8 H (11.5-14.5) % MPV 9.2 L (9.5-12.2) FL Anion Gap (4.00-12.00) mmol/L BUN (9.0-27.0) mg/dL Creatinine (0.6-1.5) mg/dL POC Glucose (mg/dL) 127 H 129 H (70-110) mg/dL Calcium (8.7-10.3) mg/dL Total Bilirubin (0.3-1.2) mg/dL Total Protein (6.2-8.2) g/dL Albumin (3.8-4.9) g/dL 10/18/24 10/18/24 Range/Units 03:54 06:11 RBC (4.10-5.20) X 10*6/uL Hgb (12.0-15.0) g/dL Hct (37.2-46.3) % MCHC (32.0-37.0) g/dL RDW (11.5-14.5) % MPV (9.5-12.2) FL Anion Gap 12.60 H (4.00-12.00) mmol/L BUN 8.3 L (9.0-27.0) mg/dL Creatinine 0.5 L (0.6-1.5) mg/dL POC Glucose (mg/dL) 117 H (70-110) mg/dL Calcium 8.6 L (8.7-10.3) mg/dL Total Bilirubin <0.2 L (0.3-1.2) mg/dL Total Protein 5.3 L (6.2-8.2) g/dL Albumin 3.3 L (3.8-4.9) g/dL Assessment and Plan (1) Cellulitis Current Visit: Yes Status: Acute Code(s): L03.90 - CELLULITIS, UNSPECIFIED SNOMED Code(s): 524782957 (2) Type 2 diabetes mellitus Current Visit: Yes Status: Acute Code(s): E11.9 - TYPE 2 DIABETES MELLITUS WITHOUT COMPLICATIONS SNOMED Code(s): 70256688 (3) Asthma Current Visit: Yes Status: Acute Code(s): J45.909 - UNSPECIFIED ASTHMA, UNCO MPLICATED SNOMED Code(s): 212604443 (4) Hypertension Current Visit: Yes Status: Acute Code(s): I10 - ESSENTIAL (PRIMARY) HYPERTENSION SNOMED Code(s): 23102221 (5) Hyperlipemia Current Visit: Yes Status: Acute Code(s): E78.5 - HYPERLIPIDEMIA, UNSPECIFIE D SNOMED Code(s): 27364387 Plan: Appreciate infectious disease input. Check CBC and CMP in the morning. Anticipate possible discharge in the next 24 to 48 hours. Patient seen and evaluated by nurse practitioner, physician in agreement with plan.
[2024-10-18 12:16] LABS: Glucose,Whole Blood 137 mg/dL (70-110)
[2024-10-18] MEDS: VANCOMYCIN TROUGH DUE 1 EACH MISC MISCELLANE ONE (12:26)
--- NOTE | 2024-10-18 15:01 | P.PN ---
Subjective Progress Note Date: 10/17/24 Principal diagnosis: Reason for follow-up is left leg cellulitis Patient is a 44-year-old female with a past medical history significant for Asthma, Diabetes Mellitus, Hyperlipidemia, Hypertension, Sleep Apnea/CPAP/BIPAP presented hospital for evaluation of increasing swelling and redness to the left lower extremity diagnosed with cellulitis prompting this consultation. On today's evaluation that is 10/17/2024,the patient denies any fever or any chills, patient is breathing comfortably on room air, the patient denies chest pain shortness of breath and no significant cough, patient denies abdominal pain, no nausea vomiting or diarrhea. Patient left lower extremity swelling redness slightly decreased. Patient white count normalized to 9.79, creatinine 0.7 Objective - Vital Signs Vital signs: Vital Signs Temp 98.7 F 10/17/24 07:33 Pulse 82 10/17/24 12:13 Resp 18 10/17/24 07:33 BP 102/52 10/17/24 07:33 Pulse Ox 93 L 10/17/24 07:33 FiO2 Intake & Output 10/16/24 10/17/24 10/17/24 18:59 06:59 18:59 Intake Total 0 240 Balance 0 240 Weight 107.501 kg Intake: Intake, IV Titration 0 Amount Lactated Ringers 1,000 ml 0 @ 125 mls/hr IV .Q8H [facility] Rx#:[id number] Oral 240 Other: Voiding Method Toilet Toilet # Voids 2 - Exam GENERAL DESCRIPTION: Middle-age female lying in bed in no distress RESPIRATORY SYSTEM: Unlabored breathing , decreased breath sounds at bases HEART: S1 S2 regular rate and rhythm , ABDOMEN: Soft , no tenderness EXTREMITIES: Left swelling redness slightly decreased - Labs CBC & Chem 7: 10/18/24 03:54 10/18/24 03:54 Labs: Abnormal Lab Results - Last 24 Hours (Table) 10/16/24 10/16/24 10/17/24 Range/Units 17:13 20:01 04:58 RBC 3.41 L (4.10-5.20) X 10*6/uL Hgb 9.3 L (12.0-15.0) g/dL Hct 29.1 L (37.2-46.3) % RDW 15.2 H (11.5-14.5) % MPV 9.2 L (9.5-12.2) FL POC Glucose (mg/dL) 135 H 159 H (70-110) mg/dL Calcium (8.7-10.3) mg/dL Total Bilirubin (0.3-1.2) mg/dL AST (13-35) U/L Total Protein (6.2-8.2) g/dL Albumin (3.8-4.9) g/dL Albumin/Globulin Ratio (1.60-3.17) Ratio 10/17/24 10/17/24 10/17/24 Range/Units 04:58 06:22 12:31 RBC (4.10-5.20) X 10*6/uL Hgb (12.0-15.0) g/dL Hct (37.2-46.3) % RDW (11.5-14.5) % MPV (9.5-12.2) FL POC Glucose (mg/dL) 116 H 127 H (70-110) mg/dL Calcium 8.4 L (8.7-10.3) mg/dL Total Bilirubin 0.2 L (0.3-1.2) mg/dL AST 12 L (13-35) U/L Total Protein 5.3 L (6.2-8.2) g/dL Albumin 3.1 L (3.8-4.9) g/dL Albumin/Globulin Ratio 1.41 L (1.60-3.17) Ratio Assessment and Plan (1) Sepsis Current Visit: Yes Status: Acute Code(s): A41.9 - SEPSIS, UNSPECIFIED ORGANISM SNOMED Code(s): 64117229 (2) Left leg cellulitis Current Visit: Yes Status: Acute Code(s): L03.116 - CELLULITIS OF LEFT LOWER LIMB SNOMED Code(s): 32860199080486139 (3) Abscess of third toe, left Current Visit: Yes Status: Acute Code(s): L02.612 - CUTANEOUS ABSCESS OF LEFT FOOT SNOMED Code(s): 28577895178908955 (4) Penicillin allergy Current Visit: Yes Status: Acute Code(s): Z88.0 - ALLERGY STATUS TO PENICILLIN SNOMED Code(s): 48332081 (5) Failure of outpatient treatment Current Visit: Yes Status: Acute Code(s): Z78.9 - OTHER SPECIFIED HEALTH STATUS SNOMED Code(s): 117122519 Plan: 1patient presented hospital increasing swelling redness of left lower extremity in this patient who did debride callus to the left that toe and now developing an abscess likely the source of cellulitis to the left lower extremity likely from gram-positive skin justino failing outpatient oral clindamycin therapy 2patient did have features of sepsis on presentation to the hospital with tachycardia elevated white count and low-grade fever source is a left third toe abscess and left leg cellulitis 3 patient has been very vascular surgery recommending no drainage of the left third toe as they seem to have dried out 4will apply Sharad wrap to the leg to keep the swelling down and continue with the vancomycin Dictation was produced using [employer] dictation software. please excuse any grammatical, word or spelling errors. Time with Patient: Less than 30
--- NOTE | 2024-10-18 15:02 | P.PN ---
Subjective Progress Note Date: 10/18/24 Principal diagnosis: Reason for follow-up is left leg cellulitis Patient is a 44-year-old female with a past medical history significant for Asthma, Diabetes Mellitus, Hyperlipidemia, Hypertension, Sleep Apnea/CPAP/BIPAP presented hospital for evaluation of increasing swelling and redness to the left lower extremity diagnosed with cellulitis prompting this consultation. On today's evaluation that is 10/18/2024,the patient remains to be afebrile, patient is on room air not requiring supplemental oxygen and mentioned breathing comfortably with no chest pain or cough.Patient denies having any nausea or vomiting, no abdominal pain and no diarrhea has been reported still complaining of swelling to lower extremity with minimal improvement. Patient white count is 8.27 creatinine 0.5 Vanco trough value of 8.6 Objective - Vital Signs Vital signs: Vital Signs Temp 98.2 F 10/18/24 07:18 Pulse 97 10/18/24 07:18 Resp 18 10/18/24 07:18 BP 119/75 10/18/24 07:18 Pulse Ox 94 L 10/18/24 07:18 FiO2 Intake & Output 10/17/24 10/18/24 10/18/24 18:59 06:59 18:59 Intake Total 598 Balance 598 Intake: Oral 598 Other: Voiding Method Toilet Toilet Toilet # Voids 2 3 - Exam GENERAL DESCRIPTION: Middle-age female lying in bed in no distress RESPIRATORY SYSTEM: Unlabored breathing , decreased breath sounds at bases HEART: S1 S2 regular rate and rhythm , ABDOMEN: Soft , no tenderness EXTREMITIES: Left swelling redness slightly decreased - Labs CBC & Chem 7: 10/18/24 03:54 10/18/24 03:54 Labs: Abnormal Lab Results - Last 24 Hours (Table) 10/17/24 10/18/24 10/18/24 Range/Units 20:29 03:54 03:54 RBC 3.30 L (4.10-5.20) X 10*6/uL Hgb 9.0 L (12.0-15.0) g/dL Hct 28.9 L (37.2-46.3) % MCHC 31.1 L (32.0-37.0) g/dL RDW 14.8 H (11.5-14.5) % MPV 9.2 L (9.5-12.2) FL Anion Gap 12.60 H (4.00-12.00) mmol/L BUN 8.3 L (9.0-27.0) mg/dL Creatinine 0.5 L (0.6-1.5) mg/dL POC Glucose (mg/dL) 129 H (70-110) mg/dL Calcium 8.6 L (8.7-10.3) mg/dL Total Bilirubin <0.2 L (0.3-1.2) mg/dL Total Protein 5.3 L (6.2-8.2) g/dL Albumin 3.3 L (3.8-4.9) g/dL 10/18/24 10/18/24 Range/Units 06:11 12:15 RBC (4.10-5.20) X 10*6/uL Hgb (12.0-15.0) g/dL Hct (37.2-46.3) % MCHC (32.0-37.0) g/dL RDW (11.5-14.5) % MPV (9.5-12.2) FL Anion Gap (4.00-12.00) mmol/L BUN (9.0-27.0) mg/dL Creatinine (0.6-1.5) mg/dL POC Glucose (mg/dL) 117 H 137 H (70-110) mg/dL Calcium (8.7-10.3) mg/dL Total Bilirubin (0.3-1.2) mg/dL Total Protein (6.2-8.2) g/dL Albumin (3.8-4.9) g/dL Assessment and Plan (1) Sepsis Current Visit: Yes Status: Acute Code(s): A41.9 - SEPSIS, UNSPECIFIED ORGANISM SNOMED Code(s): 74356208 (2) Left leg cellulitis Current Visit: Yes Status: Acute Code(s): L03.116 - CELLULITIS OF LEFT LOWER LIMB SNOMED Code(s): 56276986672489113 (3) Abscess of third toe, left Current Visit: Yes Status: Acute Code(s): L02.612 - CUTANEOUS ABSCESS OF LEFT FOOT SNOMED Code(s): 16253705662649388 (4) Penicillin allergy Current Visit: Yes Status: Acute Code(s): Z88.0 - ALLERGY STATUS TO PE NICILLIN SNOMED Code(s): 78803751 (5) Failure of outpatient treatment Current Visit: Yes Status: Acute Code(s): Z78.9 - OTHER SPECIFIED HEALTH STATUS SNOMED Code(s): 931525973 Plan: 1patient presented hospital increasing swelling redness of left lower extremity in this patient who did debride callus to the left that toe and now developing an abscess likely the source of cellulitis to the left lower extremity likely from gram-positive skin justino failing outpatient oral clindamycin therapy 2patient did have features of sepsis on presentation to the hospital with tachycardia elevated white count and low-grade fever source is a left third toe abscess and left leg cellulitis 3 patient has been evaluated by vascular surgery recommending no drainage of the left third toe as they seem to have dried out 4patient did have slow clinical improvement more likely due to subtherapeutic vancomycin dosing to be adjusted up we will also add cefazolin and will see clinical response and reevaluate patient tomorrow Sharad wrap to both leg Dictation was produced using [employer] dictation software. please excuse any grammatical, word or spelling errors. Time with Patient: Less than 30
[2024-10-18 17:28] LABS: Glucose,Whole Blood 115 mg/dL (70-110)
[2024-10-18 20:40] LABS: Glucose,Whole Blood 184 mg/dL (70-110)
[2024-10-18] MEDS: diphenhydrAMINE 50 MG/ML 1 ML VIAL IVP STA (21:51)
[2024-10-18] MEDS: VANCOMYCIN 1,750 MG in SODIUM CHLORIDE 0.9% 500 ML 500 ML IVPB SCH (21:59)
[2024-10-19 06:03] LABS: Glucose,Whole Blood 124 mg/dL (70-110)
[2024-10-19 07:53] LABS: HCT 29.1 % (37.2-46.3); HGB 8.9 g/dL (12.0-15.0); MCH 26.7 pg (27.0-32.0); MCHC 30.6 g/dL (32.0-37.0); MCV 87.4 FL (80.0-97.0); NRBC Per 100 WBC 0.02 X 10*3/uL (0.00-0.01); Platelet Count 354 X 10*3/uL (140-440); RBC 3.33 X 10*6/uL (4.10-5.20); RDW 14.6 % (11.5-14.5); WBC 7.96 X 10*3/uL (4.50-10.00)
--- NOTE | 2024-10-19 08:45 | P.PN ---
Subjective Principal diagnosis: Foot infection in a diabetic. Element of sepsis. The patient is a 44-year-old white female with known history of insulin- dependent diabetes who is coming in for cellulitis and foot infection. The patient has had infectious disease and surgical consult. Nominal tolerating appropriate fluid and voiding nominally. Edema is improved. Objective - Vital Signs Vital signs: Vital Signs Temp 98.2 F 10/19/24 07:00 Pulse 95 10/19/24 07:00 Resp 17 10/19/24 07:00 BP 125/76 10/19/24 07:00 Pulse Ox 94 L 10/19/24 07:00 FiO2 Intake & Output 10/18/24 10/19/24 10/19/24 18:59 06:59 18:59 Intake Total 1020 Balance 1020 Intake: Oral 1020 Other: Voiding Method Toilet Toilet # Voids 3 2 - Constitutional General appearance: Present: average body habitus - EENT Eyes: Absent: abnormal pupil - Neck Neck: Absent: lymphadenopathy - Respiratory Respiratory: bilateral: diminished - Cardiovascular Rhythm: regular Heart sounds: normal: S1, S2 Abnormal Heart Sounds: Absent: S3 Gallop - Gastrointestinal General gastrointestinal: Present: soft. Absent: tenderness - Labs CBC & Chem 7: 10/19/24 05:54 10/18/24 03:54 Labs: Abnormal Lab Results - Last 24 Hours (Table) 10/18/24 10/18/24 10/18/24 Range/Units 12:15 17:24 20:38 RBC (4.10-5.20) X 10*6/uL Hgb (12.0-15.0) g/dL Hct (37.2-46.3) % MCH (27.0-32.0) pg MCHC (32.0-37.0) g/dL RDW (11.5-14.5) % MPV (9.5-12.2) FL NRBC/100 WBC Diff (0.00-0.01) X 10*3/uL POC Glucose (mg/dL) 137 H 115 H 184 H (70-110) mg/dL 10/19/24 10/19/24 Range/Units 05:54 06:00 RBC 3.33 L (4.10-5.20) X 10*6/uL Hgb 8.9 L (12.0-15.0) g/dL Hct 29.1 L (37.2-46.3) % MCH 26.7 L (27.0-32.0) pg MCHC 30.6 L (32.0-37.0) g/dL RDW 14.6 H (11.5-14.5) % MPV 9.2 L (9.5-12.2) FL NRBC/100 WBC Diff 0.02 H (0.00-0.01) X 10*3/uL POC Glucose (mg/dL) 124 H (70-110) mg/dL Assessment and Plan (1) Abscess of third toe, left Current Visit: Yes Status: Acute Code(s): L02.612 - CUTANEOUS ABSCESS OF LEFT FOOT SNOMED Code(s): 00888680909296549 (2) Asthma Current Visit: Yes Status: Acute Code(s): J45.909 - UNSPECIFIED ASTHMA, UNCOMPLICATED SNOMED Code(s): 740443173 (3) Cellulitis Current Visit: Yes Status: Acute Code(s): L03.90 - CELLULITIS, UNSPECIFIED SNOMED Code(s): 931048398 (4) Failure of outpatient treatment Current Visit: Yes Status: Acute Code(s): Z78.9 - OTHER SPECIFIED HEALTH STATUS SNOMED Code(s): 107915339 (5) Left leg cellulitis Current Visit: Yes Status: Acute Code(s): L03.116 - CELLULITIS OF LEFT LOWER LIMB SNOMED Code(s): 68360485403985507 (6) Type 2 diabetes mellitus Current Visit: Yes Status: Acute Code(s): E11.9 - TYPE 2 DIABETES MELLITUS WITHOUT COMPLICATIONS SNOMED Code(s): 62442047 Plan: Continue current regimen of treatment. Check CBC and CMP in AM. Appreciate multiple consultants input. Culture pending Dissipate discharge in the next 24-48 hours. Slow improvement of her cellulitis.
[2024-10-19 10:46] LABS: Albumin 3.4 g/dL (3.8-4.9); Alkaline Phosphatase 62 U/L (41-126)
[2024-10-19 10:47] LABS: ALT 17 U/L (8-44); AST 13 U/L (13-35); Albumin/Globulin Ratio 1.48 Ratio (1.60-3.17); Anion Gap 13.50 mmol/L (4.00-12.00); BUN/Creat Ratio 16.60 Ratio (12.00-20.00); Blood Urea Nitrogen 8.3 mg/dL (9.0-27.0); Calcium 8.7 mg/dL (8.7-10.3); Carbon Dioxide 25.5 mmol/L (21.6-31.8); Chloride 103 mmol/L (96-109); Globulin 2.3 g/dL (1.6-3.3); Glucose 104 mg/dL (70-110); Potassium 4.1 mmol/L (3.5-5.5); Sodium 142 mmol/L (135-145); Total Protein 5.7 g/dL (6.2-8.2)
[2024-10-19 12:27] LABS: Glucose,Whole Blood 95 mg/dL (70-110)
--- NOTE | 2024-10-19 16:29 | P.PN ---
Subjective Progress Note Date: 10/19/24 Principal diagnosis: Reason for follow-up is left leg cellulitis Patient is a 44-year-old female with a past medical history significant for Asthma, Diabetes Mellitus, Hyperlipidemia, Hypertension, Sleep Apnea/CPAP/BIPAP presented hospital for evaluation of increasing swelling and redness to the left lower extremity diagnosed with cellulitis prompting this consultation. On today's evaluation that is 10/19/2024, the patient continues to be afebrile, the patient is on room air and breathing comfortably, the Pt denies having any chest pain or cough, the patient denies having any abdominal pain no vomiting or any diarrhea lower extremity swelling redness has decreased has been complaining of itching and rash possibly associated with the vancomycin. Patient white count 7.96, creatinine 0.5 Objective - Vital Signs Vital signs: Vital Signs Temp 98.1 F 10/19/24 14:59 Pulse 90 10/19/24 14:59 Resp 20 10/19/24 14:59 BP 94/57 10/19/24 14:59 Pulse Ox 94 L 10/19/24 14:59 FiO2 Intake & Output 10/18/24 10/19/24 10/19/24 18:59 06:59 18:59 Intake Total 1020 462 Balance 1020 462 Intake: Oral 1020 462 Other: Voiding Method Toilet Toilet Toilet # Voids 3 2 1 - Exam GENERAL DESCRIPTION: Middle-age female lying in bed in no distress RESPIRATORY SYSTEM: Unlabored breathing , decreased breath sounds at bases HEART: S1 S2 regular rate and rhythm , ABDOMEN: Soft , no tenderness EXTREMITIES: Left swelling redness slightly decreased - Labs CBC & Chem 7: 10/19/24 05:54 10/19/24 05:54 Labs: Abnormal Lab Results - Last 24 Hours (Table) 10/18/24 10/18/24 10/19/24 Range/Units 17:24 20:38 05:54 RBC 3.33 L (4.10-5.20) X 10*6/uL Hgb 8.9 L (12.0-15.0) g/dL Hct 29.1 L (37.2-46.3) % MCH 26.7 L (27.0-32.0) pg MCHC 30.6 L (32.0-37.0) g/dL RDW 14.6 H (11.5-14.5) % MPV 9.2 L (9.5-12.2) FL NRBC/100 WBC Diff 0.02 H (0.00-0.01) X 10*3/uL Anion Gap (4.00-12.00) mmol/L BUN (9.0-27.0) mg/dL Creatinine (0.6-1.5) mg/dL POC Glucose (mg/dL) 115 H 184 H (70-110) mg/dL Total Bilirubin (0.3-1.2) mg/dL Total Protein (6.2-8.2) g/dL Albumin (3.8-4.9) g/dL Albumin/Globulin Ratio (1.60-3.17) Ratio 10/19/24 10/19/24 Range/Units 05:54 06:00 RBC (4.10-5.20) X 10*6/uL Hgb (12.0-15.0) g/dL Hct (37.2-46.3) % MCH (27.0-32.0) pg MCHC (32.0-37.0) g/dL RDW (11.5-14.5) % MPV (9.5-12.2) FL NRBC/100 WBC Diff (0.00-0.01) X 10*3/uL Anion Gap 13.50 H (4.00-12.00) mmol/L BUN 8.3 L (9.0-27.0) mg/dL Creatinine 0.5 L (0.6-1.5) mg/dL POC Glucose (mg/dL) 124 H (70-110) mg/dL Total Bilirubin <0.2 L (0.3-1.2) mg/dL Total Protein 5.7 L (6.2-8.2) g/dL Albumin 3.4 L (3.8-4.9) g/dL Albumin/Globulin Ratio 1.48 L (1.60-3.17) Ratio Assessment and Plan (1) Sepsis Current Visit: Yes Status: Acute Code(s): A41.9 - SEPSIS, UNSPECIFIED O RGANISM SNOMED Code(s): 28838415 (2) Left leg cellulitis Current Visit: Yes Status: Acute Code(s): L03.116 - CELLULITIS OF LEFT LOWER LIMB SNOMED Code(s): 23641101516332937 (3) Abscess of third toe, left Current Visit: Yes Status: Acute Code(s): L02.612 - CUTANEOUS ABSCESS OF LEFT FOOT SNOMED Code(s): 92666758296481782 (4) Penicillin allergy Current Visit: Yes Status: Acute Code(s): Z88.0 - ALLERGY STATUS TO PENICILLIN SNOMED Code(s): 65851786 (5) Failure of outpatient treatment Current Visit: Yes Status: Acute Code(s): Z78.9 - OTHER SPECIFIED HEALTH STATUS SNOMED Code(s): 793744237 Plan: 1patient presented hospital increasing swelling redness of left lower extremity in this patient who did debride callus to the left that toe and now developing an abscess likely the source of cellulitis to the left lower extremity likely from gram-positive skin justino failing outpatient oral clindamycin therapy 2patient did have features of sepsis on presentation to the hospital with tachycardia elevated white count and low-grade fever source is a left third toe abscess and left leg cellulitis 3 patient has been evaluated by vascular surgery recommending no drainage of the left third toe as they seem to have dried out 4patient still complaining of itching and swelling possibly related to the vancomycin should be discontinued we will continue with the cefazolin-and if continue to improve to finish therapy with oral Keflex Dictation was produced using [employer] software. please excuse any grammatical, word or spelling errors.
[2024-10-19 17:15] LABS: Glucose,Whole Blood 101 mg/dL (70-110)
[2024-10-19 20:28] LABS: Glucose,Whole Blood 132 mg/dL (70-110)
[2024-10-20] MEDS ORDERED: VANCOMYCIN TROUGH DUE 1 EACH MISC MISCELLANE ONE (05:00)
[2024-10-20 05:49] LABS: Glucose,Whole Blood 110 mg/dL (70-110)
[2024-10-20 06:02] LABS: African American GFR (CKD) >90 (>60 ml/min/1.73 sqM); Anion Gap 11 mmol/L; Blood Urea Nitrogen 9 mg/dL (7-17); Calcium 8.9 mg/dL (8.4-10.2); Carbon Dioxide 26 mmol/L (22-30); Chloride 103 mmol/L (98-107); Glucose 86 mg/dL (74-99); Non-African American GFR(CKD) >90 (>60 ml/min/1.73 sqM); Potassium 4.3 mmol/L (3.5-5.1); Sodium 140 mmol/L (137-145)
[2024-10-20 12:18] LABS: Glucose,Whole Blood 134 mg/dL (70-110)
[2024-10-20] MEDS: FLUCONAZOLE 100 MG TAB PO ONE (12:54)
--- NOTE | 2024-10-20 15:51 | P.PN ---
Subjective Progress Note Date: 10/20/24 Principal diagnosis: Reason for follow-up is left leg cellulitis Patient is a 44-year-old female with a past medical history significant for Asthma, Diabetes Mellitus, Hyperlipidemia, Hypertension, Sleep Apnea/CPAP/BIPAP presented hospital for evaluation of increasing swelling and redness to the left lower extremity diagnosed with cellulitis prompting this consultation. On today's evaluation that is 10/20/2024, patient did have a temperature of 98 F this morning and denies having any chills, patient is on room air and breathing comfortably no chest pain or cough, the patient did not have any nausea vomiting abdominal pain or any diarrhea swelling to bilateral extremity slightly decreased. Patient did have a creatinine 0.49 no CBC was done today Objective - Vital Signs Vital signs: Vital Signs Temp 98.2 F 10/20/24 07:30 Pulse 79 10/20/24 07:30 Resp 16 10/20/24 07:30 BP 123/68 10/20/24 07:30 Pulse Ox 94 L 10/20/24 09:45 FiO2 Intake & Output 10/19/24 10/20/24 10/20/24 18:59 06:59 18:59 Intake Total 580 360 Balance 580 360 Intake: Oral 580 360 Other: Voiding Method Toilet Toilet # Voids 1 2 - Exam GENERAL DESCRIPTION: Middle-age female lying in bed in no distress RESPIRATORY SYSTEM: Unlabored breathing , decreased breath sounds at bases HEART: S1 S2 regular rate and rhythm , ABDOMEN: Soft , no tenderness EXTREMITIES: Left swelling redness slightly decreased - Labs CBC & Chem 7: 10/19/24 05:54 10/20/24 05:18 Labs: Abnormal Lab Results - Last 24 Hours (Table) 10/19/24 10/20/24 10/20/24 Range/Units 20:27 05:18 12:16 Creatinine 0.49 L (0.52-1.04) mg/dL POC Glucose (mg/dL) 132 H 134 H (70-110) mg/dL Assessment and Plan (1) Sepsis Current Visit: Yes Status: Acute Code(s): A41.9 - SEPSIS, UNSPECIFIED ORGANISM SNOMED Code(s): 90788039 (2) Left leg cellulitis Current Visit: Yes Status: Acute Code(s): L03.116 - CELLULITIS OF LEFT LOWER LIMB SNOMED Code(s): 01033628237912576 (3) Abscess of third toe, left Current Visit: Yes Status: Acute Code(s): L02.612 - CUTANEOUS ABSCESS OF LEFT FOOT SNOMED Code(s): 58566737295902167 (4) Penicillin allergy Current Visit: Yes Status: Acute Code(s): Z88.0 - ALLERGY STATUS TO PENICILLIN SNOMED Code(s): 81740507 (5) Failure of outpatient treatment Current Visit: Yes Status: Acute Code(s): Z78.9 - OTHER SPECIFIED HEALTH STATUS SNOMED Code(s): 078597899 Plan: 1patient presented hospital increasing swelling redness of left lower extremity in this patient who did debride callus to the left that toe and now developing an abscess likely the source of cellulitis to the left lower extremity likely from gram-positive skin justino failing outpatient oral clindamycin therapy 2patient did have features of sepsis on presentation to the hospital with tachycardia elevated white count and low-grade fever source is a left third toe abscess and left leg cellulitis 3 patient has been evaluated by vascular surgery recommending no drainage of the left third toe as they seem to have dried out 4patient patient mention some improvement her symptoms to continue with cefazolin and transition to oral Keflex on discharge advised to continue with Sharad wrap for compression Dictation was produced using [employer] dictation software. please excuse any grammatical, word or spelling errors.
[2024-10-20 17:26] LABS: Glucose,Whole Blood 116 mg/dL (70-110)
[2024-10-20 19:35] LABS: Glucose,Whole Blood 157 mg/dL (70-110)
--- NOTE | 2024-10-21 05:01 | PN ---
PROGRESS NOTE DATE OF SERVICE: 10/20/2024 SUBJECTIVE: This 44-year-old woman, is admitted with left leg cellulitis, is on antibiotics. The patient has no chest pain, no palpitation. EXAM: VITAL SIGNS: Pulse is 79, blood pressure 123/68, and respirations 16. CHEST: Clear to auscultation. CARDIOVASCULAR: S1 and S2. ABDOMEN: Soft. LEGS: Left leg cellulitis present, which is bandaged. LABS: Reviewed. ASSESSMENT: 1. Left leg cellulitis with sepsis. 2. Abscess, 3rd toe, left. 3. Diabetes mellitus, type 2. 4. History of asthma. 5. Multiple complex medical issues. RECOMMENDATIONS AND DISCUSSION: I recommend to continue current management and continue the antibiotics. Recommend to repeat CBC and BMP. Continue to monitor. Further recommendations to follow. MMODL / IJN: [id number] /
[2024-10-21 05:45] LABS: Glucose,Whole Blood 120 mg/dL (70-110)
[2024-10-21 09:58] LABS: Anion Gap 13.00 mmol/L (4.00-12.00); BUN/Creat Ratio 15.33 Ratio (12.00-20.00); Blood Urea Nitrogen 9.2 mg/dL (9.0-27.0); Calcium 9.1 mg/dL (8.7-10.3); Carbon Dioxide 26.0 mmol/L (21.6-31.8); Chloride 99 mmol/L (96-109); Glucose 101 mg/dL (70-110); Potassium 4.2 mmol/L (3.5-5.5); Sodium 138 mmol/L (135-145)
[2024-10-21 10:18] LABS: Basophils # (A) 0.08 X 10*3/uL (0.00-0.10); Basophils % (A) 0.8 %; Eosinophils # (A) 0.38 X 10*3/uL (0.04-0.35); Eosinophils % (A) 3.8 %; HCT 32.4 % (37.2-46.3); HGB 9.9 g/dL (12.0-15.0); Immature Grans, Automated 1.70 %; Lymphocytes # (A) 2.47 X 10*3/uL (0.90-5.00); Lymphocytes % (A) 24.5 %; MCH 26.5 pg (27.0-32.0); MCHC 30.6 g/dL (32.0-37.0); MCV 86.9 FL (80.0-97.0); Monocytes # (A) 0.58 X 10*3/uL (0.20-1.00); Monocytes % (A) 5.8 %; NRBC Per 100 WBC 0.02 X 10*3/uL (0.00-0.01); Neutrophils # (A) 6.40 X 10*3/uL (1.80-7.70); Neutrophils % (A) 63.4 %; Platelet Count 470 X 10*3/uL (140-440); RBC 3.73 X 10*6/uL (4.10-5.20); RDW 14.4 % (11.5-14.5); WBC 10.08 X 10*3/uL (4.50-10.00)
[2024-10-21] MEDS: FUROSEMIDE 10 MG/ML 4 ML VIAL IV STA (11:45)
[2024-10-21 12:25] LABS: Glucose,Whole Blood 99 mg/dL (70-110)
--- NOTE | 2024-10-21 16:06 | P.PN ---
Subjective Progress Note Date: 10/21/24 Principal diagnosis: Reason for follow-up is left leg cellulitis Patient is a 44-year-old female with a past medical history significant for Asthma, Diabetes Mellitus, Hyperlipidemia, Hypertension, Sleep Apnea/CPAP/BIPAP presented hospital for evaluation of increasing swelling and redness to the left lower extremity diagnosed with cellulitis prompting this consultation. On today's evaluation that is 10/21/2024, Patient is afebrile patient is currently on room air and denies having any shortness of breath, the patient denies any chest pain or cough, the patient denies any nausea vomiting did not have any abdominal pain and no diarrhea mention swelling to lower extremity has decreased itching has improved. Patient white count is 10.08, creatinine 0.6 Objective - Vital Signs Vital signs: Vital Signs Temp 98.3 F 10/21/24 15:00 Pulse 96 10/21/24 15:00 Resp 16 10/21/24 15:00 BP 98/58 10/21/24 15:00 Pulse Ox 98 10/21/24 15:00 FiO2 Intake & Output 10/20/24 10/21/24 10/21/24 18:59 06:59 18:59 Intake Total 960 720 Balance 960 720 Intake: Oral 960 720 Other: Voiding Method Toilet Toilet # Voids 3 2 3 # Bowel Movements 1 - Exam GENERAL DESCRIPTION: Middle-age female lying in bed in no distress RESPIRATORY SYSTEM: Unlabored breathing , decreased breath sounds at bases HEART: S1 S2 regular rate and rhythm , ABDOMEN: Soft , no tenderness EXTREMITIES: Left swelling redness slightly decreased - Labs CBC & Chem 7: 10/21/24 05:17 10/21/24 05:17 Labs: Abnormal Lab Results - Last 24 Hours (Table) 10/20/24 10/20/24 10/21/24 Range/Units 17:25 19:33 05:17 WBC 10.08 H (4.50-10.00) X 10*3/uL RBC 3.73 L (4.10-5.20) X 10*6/uL Hgb 9.9 L (12.0-15.0) g/dL Hct 32.4 L (37.2-46.3) % MCH 26.5 L (27.0-32.0) pg MCHC 30.6 L (32.0-37.0) g/dL Plt Count 470 H (140-440) X 10*3/uL MPV 9.2 L (9.5-12.2) FL Immature Gran # 0.17 H (0.00-0.04) X 10*3/uL Eosinophils # 0.38 H (0.04-0.35) X 10*3/uL NRBC/100 WBC Diff 0.02 H (0.00-0.01) X 10*3/uL Anion Gap (4.00-12.00) mmol/L POC Glucose (mg/dL) 116 H 157 H (70-110) mg/dL 10/21/24 10/21/24 Range/Units 05:17 05:44 WBC (4.50-10.00) X 10*3/uL RBC (4.10-5.20) X 10*6/uL Hgb (12.0-15.0) g/dL Hct (37.2-46.3) % MCH (27.0-32.0) pg MCHC (32.0-37.0) g/dL Plt Count (140-440) X 10*3/uL MPV (9.5-12.2) FL Immature Gran # (0.00-0.04) X 10*3/uL Eosinophils # (0.04-0.35) X 10*3/uL NRBC/100 WBC Diff (0.00-0.01) X 10*3/uL Anion Gap 13.00 H (4.00-12.00) mmol/L POC Glucose (mg/dL) 120 H (70-110) mg/dL Assessment and Plan (1) Sepsis Current Visit: Yes Status: Acute Code(s): A41.9 - SEPSIS, UNSPECIFIED ORGANISM SNOMED Code(s): 82466393 (2) Left leg cellulitis Current Visit: Yes Status: Acute Code(s): L03.116 - CELLULITIS OF LEFT LOWER LIMB SNOMED Code(s): 52016244622988539 (3) Abscess of third toe, left Current Visit: Yes Status: Acute Code(s): L02.612 - CUTANEOUS ABSCESS OF LEFT FOOT SNOMED Code(s): 06782495435381769 (4) Penicillin allergy Current Visit: Yes Status: Acute Code(s): Z88.0 - ALLERGY STATUS TO PENICILLIN SNOMED Code(s): 64980590 (5) Failure of outpatient treatment Current Visit: Yes Status: Acute Code(s): Z78.9 - OTHER SPECIFIED HEALTH STATUS SNOMED Code(s): 040615778 Plan: 1patient presented hospital increasing swelling redness of left lower extremity in this patient who did debride callus to the left that toe and now developing an abscess likely the source of cellulitis to the left lower extremity likely from gram-positive skin justino failing outpatient oral clindamycin therapy 2patient did have features of sepsis on presentation to the hospital with tachycardia elevated white count and low-grade fever source is a left third toe abscess and left leg cellulitis 3 patient has been evaluated by vascular surgery recommending no drainage of the left third toe as they seem to have dried out 4patient did have improvement in swelling to the lower extremity to continue with cefazolin and transition to oral Keflex on discharge still advised to continue with compression stocking to keep the swelling down Dictation was produced using [employer] dictation software. please excuse any grammatical, word or spelling errors. Time with Patient: Less than 30
[2024-10-21 17:35] LABS: Glucose,Whole Blood 156 mg/dL (70-110)
[2024-10-21 20:08] LABS: Glucose,Whole Blood 131 mg/dL (70-110)
[2024-10-22 01:23] VITALS: TEMP 98.2
--- NOTE | 2024-10-22 03:59 | PN ---
PROGRESS NOTE DATE OF SERVICE: 10/21/2024 SUBJECTIVE: This 44-year-old woman, is admitted with left leg cellulitis and sepsis, is on antibiotics. No chest pain. No palpitation. OBJECTIVE: VITAL SIGNS: Pulse is 96, blood pressure 98/50, respirations 16. CHEST: Clear to auscultation. ABDOMEN: Soft. EXTREMITIES: Foot infection present. LABORATORY DATA: Reviewed. ASSESSMENT: 1. Left leg cellulitis and sepsis. 2. Abscess, 3rd toe, left. 3. Diabetes mellitus type 2. 4. History of asthma. 5. Multiple complex medical issues. RECOMMENDATIONS AND DISCUSSION: I recommend to continue current management with IV antibiotics, otherwise closely monitor and Dr. Law will follow tomorrow. MMODL / IJN: [id number] /
[2024-10-22 05:53] LABS: Glucose,Whole Blood 146 mg/dL (70-110)
[2024-10-22 08:03] LABS: Anion Gap 12.40 mmol/L (4.00-12.00); BUN/Creat Ratio 13.83 Ratio (12.00-20.00); Blood Urea Nitrogen 8.3 mg/dL (9.0-27.0); Calcium 9.1 mg/dL (8.7-10.3); Carbon Dioxide 26.6 mmol/L (21.6-31.8); Chloride 100 mmol/L (96-109); Glucose 125 mg/dL (70-110); Potassium 4.3 mmol/L (3.5-5.5); Sodium 139 mmol/L (135-145)
[2024-10-22 08:04] LABS: Basophils # (A) 0.09 X 10*3/uL (0.00-0.10); Basophils % (A) 0.7 %; Eosinophils # (A) 0.44 X 10*3/uL (0.04-0.35); Eosinophils % (A) 3.5 %; HCT 32.9 % (37.2-46.3); HGB 10.1 g/dL (12.0-15.0); Immature Grans, Automated 2.60 %; Lymphocytes # (A) 2.43 X 10*3/uL (0.90-5.00); Lymphocytes % (A) 19.2 %; MCH 26.8 pg (27.0-32.0); MCHC 30.7 g/dL (32.0-37.0); MCV 87.3 FL (80.0-97.0); Monocytes # (A) 0.78 X 10*3/uL (0.20-1.00); Monocytes % (A) 6.2 %; NRBC Per 100 WBC 0.02 X 10*3/uL (0.00-0.01); Neutrophils # (A) 8.58 X 10*3/uL (1.80-7.70); Neutrophils % (A) 67.8 %; Platelet Count 480 X 10*3/uL (140-440); RBC 3.77 X 10*6/uL (4.10-5.20); RDW 14.6 % (11.5-14.5); WBC 12.65 X 10*3/uL (4.50-10.00)
[2024-10-22 08:53] VITALS: BP 109/57; PULSE 102; RESP 16
--- NOTE | 2024-10-22 09:08 | P.DS ---
Providers Date of admission: 10/16/24 00:12 Attending physician: Dima Law Consults: 10/16/24 00:12 Consult Physician Routine Consulting Provider: Joanne Melendrez Consult Reason/Comments: celllulitis Do you want consulting provider notified?: Yes, Notify in am 10/16/24 16:02 Consult Physician Routine Consulting Provider: Carl Yap Consult Reason/Comments: left 3rd toe abscess for I&D and cultures Do you want consulting provider notified?: Yes Primary care physician: Dima Law - Discharge Diagnosis(es) (1) Cellulitis Current Visit: Yes Status: Acute (2) Type 2 diabetes mellitus Current Visit: Yes Status: Acute (3) Asthma Current Visit: Yes Status: Acute (4) Hypertension Current Visit: Yes Status: Acute (5) Hyperlipemia Current Visit: Yes Status: Acute Hospital Course: This is a 44-year-old female with a history of diabetes who presented to the emergency department with complaints of left toe and left leg redness and infection. Patient had been seen in the emergency room prior to admission and was sent home on oral clindamycin but developed a fever so she presented back to the emergency department. Patient seen and evaluated by infectious disease during this admission who is recommending Keflex at discharge. Redness has significantly improved and patient is feeling much better. She is very eager to get home. She will be discharged on a course of oral Keflex for 1 week and will follow-up in 1 week at our office. Patient seen and evaluated by nurse practitioner, physician in agreement with plan. Patient Condition at Discharge: Stable Plan - Discharge Summary Discharge Rx Participant: No New Discharge Prescriptions: New Cephalexin [Keflex] 500 mg PO Q6HR 7 Days #28 cap Continue Albuterol Nebulized [Ventolin Nebulized] 2.5 mg INHALATION RT-Q4H PRN PRN Reason: Shortness Of Breath Budesonide/Formoterol Fumarate [Symbicort 160-4.5 Mcg Inhaler] 2 puff INHALATION RT-BID Albuterol Sulfate [Ventolin HFA] 1 - 2 puff INHALATION RT-Q6H PRN PRN Reason: Shortness Of Breath metFORMIN HCL [Glucophage] 1,000 mg PO BID Citalopram Hydrobromide [CeleXA] 40 mg PO DAILY Lisinopril-Hctz 20-12.5 mg [Zestoretic 20-12.5] 1 tab PO DAILY LORazepam [Ativan] 0.5 mg PO TID Atorvastatin [Lipitor] 40 mg PO HS risperiDONE [RisperDAL] 1 mg PO BID Insulin Glargine,Hum.rec.anlog [Lantus Solostar Pen] 30 unit SQ BID Ammonium Lactate Cream [Lac-Hydrin 12% Cream] 1 applic TOPICAL HS Empagliflozin [Jardiance] 25 mg PO DAILY Ketoconazole 2% Cream [Nizoral 2%] 1 applic TOPICAL BID PRN PRN Reason: abdomen/groin irritation Tirzepatide [Mounjaro] 10 mg SQ SHEARER Verapamil HCl [Verelan] 360 mg PO DAILY Montelukast [Singulair] 10 mg PO DAILY Insulin Aspart [NovoLOG Flexpen] 7 - 8 units SQ AC-TID Ezetimibe [Zetia] 10 mg PO HS Hydrocortisone Cream [Hydrocortisone 2.5% Cream] 1 applic TOPICAL DAILY PRN PRN Reason: Itching Discontinued Sulfamethox-Tmp 800-160Mg [Bactrim Ds] 1 each PO Q12HR #20 tab clindamycin HCL 300 mg PO QID #40 cap Discharge Medication List Albuterol Nebulized [Ventolin Nebulized] 2.5 mg INHALATION RT-Q4H PRN 08/06/13 [History] Albuterol Sulfate [Ventolin HFA] 1 - 2 puff INHALATION RT-Q6H PRN 08/06/13 [History] Budesonide/Formoterol Fumarate [Symbicort 160-4.5 Mcg Inhaler] 2 puff INHALATION RT-BID 08/06/13 [History] Citalopram Hydrobromide [CeleXA] 40 mg PO DAILY 08/06/13 [History] Lisinopril-Hctz 20-12.5 mg [Zestoretic 20-12.5] 1 tab PO DAILY 08/06/13 [ History] metFORMIN HCL [Glucophage] 1,000 mg PO BID 08/06/13 [History] LORazepam [Ativan] 0.5 mg PO TID 12/10/13 [History] Atorvastatin [Lipitor] 40 mg PO HS 03/09/16 [History] risperiDONE [RisperDAL] 1 mg PO BID 04/05/16 [History] Insulin Glargine,Hum.rec.anlog [Lantus Solostar Pen] 30 unit SQ BID 04/01/20 [History] Montelukast [Singulair] 10 mg PO DAILY 08/22/20 [History] Insulin Aspart [NovoLOG Flexpen] 7 - 8 units SQ AC-TID 07/07/21 [History] Ezetimibe [Zetia] 10 mg PO HS 02/05/22 [History] Ammonium Lactate Cream [Lac-Hydrin 12% Cream] 1 applic TOPICAL HS 07/28/22 [History] Empagliflozin [Jardiance] 25 mg PO DAILY 01/20/24 [History] Hydrocortisone Cream [Hydrocortisone 2.5% Cream] 1 applic TOPICAL DAILY PRN 10/16/24 [History] Ketoconazole 2% Cream [Nizoral 2%] 1 applic TOPICAL BID PRN 10/16/24 [History] Tirzepatide [Mounjaro] 10 mg SQ SHEARER 10/16/24 [History] Verapamil HCl [Verelan] 360 mg PO DAILY 10/16/24 [History] Cephalexin [Keflex] 500 mg PO Q6HR 7 Days #28 cap 10/22/24 [Rx] Follow up Appointment(s)/Referral(s): Dima Law MD [Primary Care Provider] - 1 Week Discharge Disposition: HOME SELF-CARE
[2024-10-22 12:17] LABS: Glucose,Whole Blood 127 mg/dL (70-110)
--- NOTE | 2024-10-23 14:54 | P.PN ---
Subjective Progress Note Date: 10/22/24 Principal diagnosis: Reason for follow-up is left leg cellulitis Patient is a 44-year-old female with a past medical history significant for Asthma, Diabetes Mellitus, Hyperlipidemia, Hypertension, Sleep Apnea/CPAP/BIPAP presented hospital for evaluation of increasing swelling and redness to the left lower extremity diagnosed with cellulitis prompting this consultation. On today's evaluation that is 10/22/2024, patient has been afebrile, patient is breathing comfortably and is currently on room air, patient denies having any chest pain and cough, patient denies nausea vomiting or diarrhea and no abdominal pain lower extremity swelling and pain has decreased. Patient with cholesterol 165, creatinine 0.6 Objective - Vital Signs Vital signs: Vital Signs Temp 98.2 F 10/22/24 07:35 Pulse 102 H 10/22/24 07:35 Resp 16 10/22/24 07:35 BP 109/57 10/22/24 07:35 Pulse Ox 94 L 10/22/24 09:07 FiO2 Intake & Output 10/21/24 10/22/24 10/22/24 18:59 06:59 18:59 Intake Total 1200 560 Balance 1200 560 Intake: Oral 1200 560 Other: Voiding Method Toilet Toilet # Voids 3 2 - Exam GENERAL DESCRIPTION: Middle-age female lying in bed in no distress RESPIRATORY SYSTEM: Unlabored breathing , decreased breath sounds at bases HEART: S1 S2 regular rate and rhythm , ABDOMEN: Soft , no tenderness EXTREMITIES: Left swelling redness slightly decreased - Labs CBC & Chem 7: 10/22/24 04:35 10/22/24 04:35 Labs: Abnormal Lab Results - Last 24 Hours (Table) 10/21/24 10/21/24 10/22/24 Range/Units 17:34 20:07 04:35 WBC 12.65 H (4.50-10.00) X 10*3/uL RBC 3.77 L (4.10-5.20) X 10*6/uL Hgb 10.1 L (12.0-15.0) g/dL Hct 32.9 L (37.2-46.3) % MCH 26.8 L (27.0-32.0) pg MCHC 30.7 L (32.0-37.0) g/dL RDW 14.6 H (11.5-14.5) % Plt Count 480 H (140-440) X 10*3/uL MPV 9.4 L (9.5-12.2) FL Immature Gran # 0.33 H (0.00-0.04) X 10*3/uL Neutrophils # 8.58 H (1.80-7.70) X 10*3/uL Eosinophils # 0.44 H (0.04-0.35) X 10*3/uL NRBC/100 WBC Diff 0.02 H (0.00-0.01) X 10*3/uL Anion Gap (4.00-12.00) mmol/L BUN (9.0-27.0) mg/dL Glucose (70-110) mg/dL POC Glucose (mg/dL) 156 H 131 H (70-110) mg/dL 10/22/24 10/22/24 Range/Units 04:35 05:51 WBC (4.50-10.00) X 10*3/uL RBC (4.10-5.20) X 10*6/uL Hgb (12.0-15.0) g/dL Hct (37.2-46.3) % MCH (27.0-32.0) pg MCHC (32.0-37.0) g/dL RDW (11.5-14.5) % Plt Count (140-440) X 10*3/uL MPV (9.5-12.2) FL Immature Gran # (0.00-0.04) X 10*3/uL Neutrophils # (1.80-7.70) X 10*3/uL Eosinophils # (0.04-0.35) X 10*3/uL NRBC/100 WBC Diff (0.00-0.01) X 10*3/uL Anion Gap 12.40 H (4.00-12.00) mmol/L BUN 8.3 L (9.0-27.0) mg/dL Glucose 125 H (70-110) mg/dL POC Glucose (mg/dL) 146 H (70-110) mg/dL Assessment and Plan (1) Sepsis Status: Acute Code(s): A41.9 - SEPSIS, UNSPECIFIED ORGANISM SNOMED Code(s): 15255237 (2) Left leg cellulitis Status: Acute Code(s): L03.116 - CELLULITIS OF LEFT LOWER LIMB SNOMED Code(s): 19288464148957526 (3) Abscess of third toe, left Status: Acute Code(s): L02.612 - CUTANEOUS ABSCESS OF LEFT FOOT SNOMED Code(s): 43318574636857162 (4) Penicillin allergy Status: Acute Code(s): Z88.0 - ALLERGY STATUS TO PENICILLIN SNOMED Code(s): 47295343 (5) Failure of outpatient treatment Status: Acute Code(s): Z78.9 - OTHER SPECIFIED HEALTH STATUS SNOMED Code(s): 132899781 Plan: 1patient presented hospital increasing swelling redness of left lower extremity in this patient who did debride callus to the left that toe and now developing an abscess likely the source of cellulitis to the left lower extremity likely from gram-positive skin justino failing outpatient oral clindamycin therapy 2patient did have features of sepsis on presentation to the hospital with tachycardia elevated white count and low-grade fever source is a left third toe abscess and left leg cellulitis 3 patient has been evaluated by vascular surgery recommending no drainage of the left third toe as they seem to have dried out 4patient did have improvement in swelling to the lower extremity advised Sharad wrap and a short course of oral Keflex on discharge Dictation was produced using [employer] dictation software. please excuse any grammatical, word or spelling errors. Time with Patient: Less than 30
== END 2024-10-22 12:58 | disposition home or self-care (01) ==
LOC: EC 20:39 → 1SOBS 10-16 00:12 → 6NMEDSUR 10-16 04:59
PROVIDERS: ADMIT Family Medicine; ATTEND Family Medicine
DX: L03.116 Cellulitis of left lower limb (principal); L02.612 Cutaneous abscess of left foot; A41.9 Sepsis, unspecified organism; I10 Essential (primary) hypertension; E78.5 Hyperlipidemia, unspecified; J45.909 Unspecified asthma, uncomplicated; E11.9 Type 2 diabetes mellitus without complications; G47.30 Sleep apnea, unspecified; F32.A Depression, unspecified; F41.9 Anxiety disorder, unspecified; Z87.891 Personal history of nicotine dependence; Z79.51 Long term (current) use of inhaled steroids; Z79.899 Other long term (current) drug therapy; Z79.84 Long term (current) use of oral hypoglycemic drugs; Z79.4 Long term (current) use of insulin; Z88.0 Allergy status to penicillin
CPT/HCPCS: 96376; 96361 ×4; 96365 ×2; 96366 ×8; 96367 ×2; 96375 ×3; 99285; 36415; 94640 ×11; 94760 ×4; 93005; 80053 ×4; 80048 ×3; 83605 ×2; 85025 ×3; 85027 ×3; 80202 ×2; G0378 ×7; J1200; J0690 ×5; J2405 ×2; J0131; J0736; J1308; J1938; J3373 ×4